=== PATIENT | male | born 1950 | race Caucasian/White ===

== ENCOUNTER 2023-02-06 11:29 | Outpatient (OUT) | payer MEDICARE, MEDICAID, SELFPAY ==
[2023-02-06 11:56] LABS: Basophils Percent Auto 0.5 % (0.2-2.0); Eosinophils Absolute Auto 0.2 10^3/uL (0.0-0.7); Eosinophils Percent Auto 2.8 % (0.9-7.0); Hemoglobin 10.7 g/dL (14.0-18.0); Immature Granulocytes Abs Auto 0.05 10^3/uL (0.00-0.03); Immature Granulocytes Pct Auto 0.6 % (0.0-0.5); Lymphocytes Absolute Auto 0.5 10^3/uL (1.2-3.8); Lymphocytes Percent Auto 5.5 % (20.5-60.0); Mean Corpuscular HGB Conc 31.5 g/dL (29.9-35.2); Mean Corpuscular Hemoglobin 30.7 pg (25.9-34.0); Mean Corpuscular Volume 97.4 fL (80.0-94.0); Mean Platelet Volume 9.9 fL (9.5-13.5); Monocytes Absolute Auto 0.4 10^3/uL (0.3-0.8); Monocytes Percent Auto 4.5 % (1.7-12.0); Neutrophils Absolute Auto 7.1 10^3/uL (1.4-6.5); Neutrophils Percent Auto 86.1 % (43.0-75.0); Platelet Count 140 10^3/uL (150-450); Red Blood Count 3.49 10^6/uL (4.70-6.10); Red Cell Distribution Width 14.6 % (11.0-15.0); White Blood Count 8.2 10^3/uL (4.0-11.0)
[2023-02-06 12:09] LABS: Ammonia <10 umol/L (11-32)
[2023-02-06 12:31] LABS: Anion Gap 9.8; Calcium 9.1 mg/dL (8.5-10.1); Carbon Dioxide 29.6 mmol/L (21.0-32.0); Chloride 106 mmol/L (98-107); Estimated GFR (African America 20 (>=60); Estimated GFR (Non-African Ame 16 (>=60); Glucose 100 mg/dL (74-106); Potassium 4.4 mmol/L (3.5-5.1); Sodium 141 mmol/L (136-145)
== END 2023-02-06 11:30 | disposition home or self-care (01) ==
LOC: LAB 11:29
PROVIDERS: PCP Family Medicine; Visit Provider Family Medicine
DX: E72.20 Disorder of urea cycle metabolism, unspecified (principal); Z79.899 Other long term (current) drug therapy
CPT/HCPCS: 36415; 80048; 82140; 85025

== ENCOUNTER 2023-04-22 22:02 | Emergency (ER) | payer MEDICARE, MEDICAID, SELFPAY ==
[2023-04-22 22:25] VITALS: BP 106/52; PULSE 87; RESP 18; TEMP 36.7; O2SAT 95; BMI 30.3
[2023-04-22 23:10] VITALS: BP 131/58; PULSE 77; RESP 18; TEMP 36.5; O2SAT 94
--- NOTE | 2023-04-22 23:15 | ECG_ITS ---
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
--- NOTE | 2023-04-22 23:16 | XR_ITS ---
The [address] [address] Patient Name: CHARLOTTE DONAHUE MRN: [id number] date: 1950 Sex: M Assigned Patient Location: ER Current Patient Location: ER Accession/Order Number: [id number] Exam Date: 04/22/2023 23:25 Report Date: 04/23/2023 00:10 At the request of: CRUZ MARKER Procedure: XR chest 2V EXAMINATION:XR chest 2V INDICATION:cough COMPARISON:05/07/2019 TECHNIQUE:Frontal/lateral views of the chest are submitted. FINDINGS: The cardiomediastinal silhouette is not enlarged. The pulmonary vascularity is within normal limits. There is free intraperitoneal air under the diaphragm. No definitive acute infiltrates are identified in the chest. There is no costophrenic angle blunting. XR/XR chest 2V IMPRESSION: No acute infiltrates. There is free intraperitoneal air. Correlate clinically for any recent surgical procedures. If the patient has not had any recent surgical intervention, CT scan the abdomen and pelvis would be necessary to determine the etiology for the free air. Electronically authenticated by: GILBERTO LOPEZ Date: 04/23/2023 00:10
--- NOTE | 2023-04-22 23:17 | ED.GENADUL1 ---
HPI - General Adult General Chief complaint: Upper Respiratory Infection Stated complaint: URTI Time Seen by Provider: 04/22/23 22:52 Source: patient Mode of arrival: walk-in History of Present Illness HPI narrative: This 72-year-old male who does peritoneal dialysis at night and is a smoker presents for evaluation of 2 weeks of a cough with clear productive sputum. He denies any chest pain or particular shortness of breath. He has not had a fever. He has chronic lower extremity swelling which is unchanged. He is not on any blood thinners. He denies any abdominal pain. He is here with a family member, she states that she had a stroke several months ago and sometimes he is hard to understand. She is concerned because he is having some degree of exertional dyspnea with his cough and she is concerned that he may be developing heart failure or pneumonia. Related Data Allergies Allergy/AdvReac Type Severity Reaction Status Date / Time Penicillins Allergy Severe Verified 04/22/23 22:25 Review of Systems ROS Status of ROS 10 or more systems reviewed and unremarkable except as noted in history and below Exam Narrative Exam Narrative: Nurses note and vital signs reviewed and patient is mildly hypoxic with pulse ox of 94% on RA General: The patient appears well and in no apparent distress. Patient is resting comfortably on cart. Speaks in complete sentences, no cough or respiratory difficulty noted Skin: Warm, dry, no pallor noted. There is no rash noted. Head: Normocephalic, atraumatic Eye: Normal conjunctiva, no drainage, EOMI. PERRL Ears, Nose, Mouth, and Throat: oral mucosa is moist. Cardiovascular: Regular Rate and RhythmS1 and S2, pulses are brisk and equal bilaterally Respiratory: Patient is in no distress, no accessory muscle use, lungs are clear to auscultation, no wheezing, rales or rhonchi, No accessory muscle use, patient is speaking in complete sentences Back: non-tender, no CVA tenderness bilaterally to percussion. GI: Normal bowel sounds, no tenderness to palpation, soft with peritoneal dialysis catheter in center of abdomen Musculoskeletal: 2+ LE edema bilaterally, no calf tenderness Neurological: A&O x4, normal speech Psychiatric: Cooperative Constitutional Vital Signs, click to edit/add: Last Vital Signs Temp 97.7 F 04/22/23 23:10 Pulse 77 04/22/23 23:10 Resp 18 04/22/23 23:10 BP 131/58 04/22/23 23:10 Pulse Ox 94 L 04/22/23 23:10 O2 Del Method Room Air 04/22/23 23:10 Course Vital Signs Vital signs: Vital Signs Temperature 98.1 F 04/22/23 22:25 Pulse Rate 87 04/22/23 22:25 Respiratory Rate 18 04/22/23 22:25 Blood Pressure 106/52 04/22/23 22:25 Pulse Oximetry 95 04/22/23 22:25 Oxygen Delivery Method Room Air 04/22/23 22:25 Temperature 97.7 F 04/22/23 23:10 Pulse Rate 77 04/22/23 23:10 Respiratory Rate 18 04/22/23 23:10 Blood Pressure 131/58 04/22/23 23:10 Pulse Oximetry 94 L 04/22/23 23:10 Oxygen Delivery Method Room Air 04/22/23 23:10 Medical Decision Making MDM Narrative Medical decision making narrative: [id number] male who is on peritoneal dialysis and is a smoker presents for evaluation of 2 weeks of a cough with clear productive sputum. He is not having any chest pain or particular shortness of breath. He does have chronic lower extremity swelling. He has not had a fever. There is been no color change to his sputum. He has no oxygen requirements although he is mildly low at 94 percent on room air upon arrival. His lungs are clear. EKG was normal sinus rhythm with diffuse flattening of his T waves. Routine labs are reviewed. He has a normal white count and hemoglobin. Creatinine is elevated at 4.11 consistent with his chronic renal failure. Chest x-ray was reviewed by radiology and is negative for acute findings. The air under hiss diaphragm is likely related to the peritoneal dialysis that he receives on a nightly basis. He remains hemodynamically stable in emergency department. I offered him an Albuterol MDI treatment which he is in agreement with and he will be discharged home with the albuterol. I signed to his daughter that he does not have pneumonia, there is no sign of congestive heart failure, a cough with clear phlegm is not indicative of any infection. He will be discharged home with the MDI. Medical Records Medical records narrative: The [place] [id number] XRay Report Signed Patient: CHARLOTTE DONAHUE MR#: [id number] : 1950 Acct:[id number] Age/Sex: 72 / M ADM Date: 04/22/23 Loc: ER Attending Dr: Ordering Physician: Kala Reddy Date of Service: 04/22/23 Procedure(s): XR chest 2V Accession Number(s): [id number] cc: Kala Reddy; Jono Robert M.D.~ The [place] [address] Patient Name: CHARLOTTE DONAHUE MRN: [id number] date: 1950 Sex: M Assigned Patient Location: ER Current Patient Location: ER Accession/Order Number: [id number] Exam Date: 04/22/2023 23:25 Report Date: 04/23/2023 00:10 At the request of: KALA REDDY Procedure: XR chest 2V EXAMINATION:XR chest 2V INDICATION:cough COMPARISON:05/07/2019 TECHNIQUE:Frontal/lateral views of the chest are submitted. FINDINGS: The cardiomediastinal silhouette is not enlarged. The pulmonary vascularity is within normal limits. There is free intraperitoneal air under the diaphragm. No definitive acute infiltrates are identified in the chest. There is no costophrenic angle blunting. XR/XR chest 2V IMPRESSION: No acute infiltrates. There is free intraperitoneal air. Correlate clinically for any recent surgical procedures. If the patient has not had any recent surgical intervention, CT scan the abdomen and pelvis would be necessary to determine the etiology for the free air. Electronically authenticated by: GILBERTO LOPEZ Date: 04/23/2023 00:10 Lab Data Labs: Lab Results 04/22/23 Range/Units 23:36 WBC 6.1 (4.0-11.0) 10^3/uL RBC 3.25 L (4.70-6.10) 10^6/uL Hgb 9.5 L (14.0-18.0) g/dL Hct 30.9 L (42.0-54.0) % MCV 95.1 H (80.0-94.0) fL MCH 29.2 (25.9-34.0) pg MCHC 30.7 (29.9-35.2) g/dL RDW 14.5 (11.0-15.0) % Plt Count 145 L (150-450) 10^3/uL MPV 11.0 (9.5-13.5) fL Neut % (Auto) 79.9 H (43.0-75.0) % Lymph % (Auto) 6.3 L (20.5-60.0) % [place] % (Auto) 8.7 (1.7-12.0) % Eos % (Auto) 4.1 (0.9-7.0) % Baso % (Auto) 0.5 (0.2-2.0) % Neut # (Auto) 4.9 (1.4-6.5) 10^3/uL Lymph # (Auto) 0.4 L (1.2-3.8) 10^3/uL [place] # (Auto) 0.5 (0.3-0.8) 10^3/uL Eos # (Auto) 0.3 (0.0-0.7) 10^3/uL Baso # (Auto) 0.0 (0.0-0.1) 10^3/uL Abs Immat Gran (auto) 0.03 (0.00-0.03) 10^3/uL Imm/Tot Granulo (auto) 0.5 (0.0-0.5) % Sodium 141 (136-145) mmol/L Potassium 3.7 (3.5-5.1) mmol/L Chloride 105 (98-107) mmol/L Carbon Dioxide 29.4 (21.0-32.0) mmol/L Anion Gap 10.3 BUN 38.0 H (7.0-18.0) mg/dL Creatinine 4.11 H (0.70-1.30) mg/dL Est GFR ( Amer) 18 L (>=60) Est GFR (Non-Af Amer) 14 L (>=60) BUN/Creatinine Ratio 9.2 Glucose 148 H (74-106) mg/dL Calcium 8.5 (8.5-10.1) mg/dL Total Bilirubin 0.3 (0.2-1.0) mg/dL AST 19 (15-37) U/L ALT 20 (16-63) U/L Alkaline Phosphatase 81 (46-116) U/L Total Protein 5.8 L (6.4-8.2) g/dL Albumin 2.0 L (3.4-5.0) g/dL Globulin 3.8 g/dL Albumin/Globulin Ratio 0.5 ECG Data Attestation: I personally reviewed and interpreted this ECG as follows: (Sinus rhythm with sinus arrhythmia at 70 beats for minute, normal axis, diffuse flattening of T waves, no acute ST segment elevation or T-wave inversion) Discharge Plan Discharge Chief Complaint: Upper Respiratory Infection Clinical Impression: Viral infection, Cough in adult Patient Disposition: Home, Self-Care Time of Disposition Decision: 00:35 Condition: Good Instructions: Viral Syndrome (ED) Stand Alone Forms: Portal Instructions Referrals: Jono Robert MD [Primary Care Provider] - 1 week
[2023-04-22 23:58] LABS: Basophils Percent Auto 0.5 % (0.2-2.0); Eosinophils Absolute Auto 0.3 10^3/uL (0.0-0.7); Eosinophils Percent Auto 4.1 % (0.9-7.0); Hematocrit 30.9 % (42.0-54.0); Hemoglobin 9.5 g/dL (14.0-18.0); Immature Granulocytes Abs Auto 0.03 10^3/uL (0.00-0.03); Immature Granulocytes Pct Auto 0.5 % (0.0-0.5); Lymphocytes Absolute Auto 0.4 10^3/uL (1.2-3.8); Lymphocytes Percent Auto 6.3 % (20.5-60.0); Mean Corpuscular HGB Conc 30.7 g/dL (29.9-35.2); Mean Corpuscular Hemoglobin 29.2 pg (25.9-34.0); Mean Corpuscular Volume 95.1 fL (80.0-94.0); Monocytes Absolute Auto 0.5 10^3/uL (0.3-0.8); Monocytes Percent Auto 8.7 % (1.7-12.0); Neutrophils Absolute Auto 4.9 10^3/uL (1.4-6.5); Neutrophils Percent Auto 79.9 % (43.0-75.0); Platelet Count 145 10^3/uL (150-450); Red Blood Count 3.25 10^6/uL (4.70-6.10); Red Cell Distribution Width 14.5 % (11.0-15.0); White Blood Count 6.1 10^3/uL (4.0-11.0)
[2023-04-23 00:21] LABS: Alanine Aminotransferase 20 U/L (16-63); Albumin Globulin Ratio 0.5; Alkaline Phosphatase 81 U/L (46-116); Anion Gap 10.3; Aspartate Amino Transferase 19 U/L (15-37); BUN Creatinine Ratio 9.2; Bilirubin Total 0.3 mg/dL (0.2-1.0); Calcium 8.5 mg/dL (8.5-10.1); Carbon Dioxide 29.4 mmol/L (21.0-32.0); Chloride 105 mmol/L (98-107); Estimated GFR (African America 18 (>=60); Estimated GFR (Non-African Ame 14 (>=60); Globulin 3.8 g/dL; Glucose 148 mg/dL (74-106); Potassium 3.7 mmol/L (3.5-5.1); Sodium 141 mmol/L (136-145); Total Protein 5.8 g/dL (6.4-8.2)
[2023-04-23 00:49] VITALS: PULSE 69; RESP 18
[2023-04-23] MEDS: ALBUTEROL SULFATE 200 PUFF/6.7 GM INHALER IH (00:49)
[2023-04-23 01:12] VITALS: BP 126/57; PULSE 70; RESP 16; TEMP 36.6; O2SAT 94
[2023-04-23 01:16] VITALS: BP 126/57; PULSE 70; RESP 16; TEMP 36.6; O2SAT 94
== END 2023-04-23 01:22 | disposition home or self-care (01) ==
PROVIDERS: Emergency Provider Emergency Medicine; PCP Family Medicine
DX: B34.9 Viral infection, unspecified (principal); R05.9 Cough, unspecified; F17.210 Nicotine dependence, cigarettes, uncomplicated; N18.9 Chronic kidney disease, unspecified; Z99.2 Dependence on renal dialysis; Z86.73 Personal history of transient ischemic attack (TIA), and cerebral infarction without residual deficits
CPT/HCPCS: 36415; 71046; 80053; 85025; 93005; 94640; 99285

== ENCOUNTER 2023-08-10 14:24 | Observation (INO) | payer MEDICARE, MEDICAID, SELFPAY ==
[2023-08-10] VITALS (25 sets, daily range): BP systolic 136–182; BP diastolic 56–77; PULSE 65–112; RESP 10–20; TEMP 36.9–37; O2SAT 94–98; BMI 26.6
--- NOTE | 2023-08-10 14:51 | CT_ITS ---
The [address] [address] Patient Name: CHARLOTTE DONAHUE MRN: [id number] date: 1950 Sex: M Assigned Patient Location: ER Current Patient Location: ER Accession/Order Number: [id number] Exam Date: 08/10/2023 14:55 Report Date: 08/10/2023 15:15 At the request of: ROGER CARTER Procedure: CT stroke head/brain wo con NONCONTRAST HEAD CT COMPARISON: Head CT 09/13/2022. CLINICAL HISTORY: Slurred speech and right arm weakness. TECHNIQUE: Routine noncontrast images of the brain obtained. CT examination of the head without IV contrast. Dose reduction techniques were achieved by using: automated exposure control and/or adjustment of mA and /or kV according to patient size and/or use of iterative reconstruction technique. FINDINGS: Paranasal sinuses and mastoid air cells are clear. Intraorbital contents are unremarkable. No acute bony abnormality. Intracranially, there is no evidence of hemorrhage, mass effect, or midline shift. There is a new area of left frontotemporal encephalomalacia with serpiginous hyperdensity most compatible with remote MCA distribution infarct and associated laminar necrosis. Dense carotid calcifications are present.. CT/CT stroke head/brain wo con IMPRESSION: No acute intracranial hemorrhage. Remote left MCA infarct is new from last years exam. If there is clinical concern for new acute MCA ischemia follow-up MRI or perfusion CTA is recommended. Electronically authenticated by: MAMI FERRARO Date: 08/10/2023 15:15
--- NOTE | 2023-08-10 14:55 | ECG_ITS ---
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
--- NOTE | 2023-08-10 15:03 | ED_ITS ---
HPI - Neuro Symptoms/Deficit General Chief Complaint: Neuro Symptoms/Deficit Stated Complaint: CVA SYMPTOMS Time Seen by Provider: 08/10/23 14:39 Source: patient and family Mode of arrival: walk-in Limitations: no limitations History of Present Illness HPI Narrative: this patient's here with new onset of worsening speech and some clumsiness of his right side hand. He lives with a daughter, who is the primary historian when I spoke with her. She indicates that he's had a left-sided stroke with some mild residual deficit with his speech and memory but he's able take care of himself pretty well. The patient tells her staff that he got up at 9:30 and noticed that his speech and his hand was not the same as usual. She noticed when she got up and talk to him at 10:30 that there is something wrong. He didn't arrive here to the emergency room until well after 2:30 PM. He is not having a headache. His vital signs are noted and are stable he is afebrile. Upon completion of the history by the nursing staff he was sent immediately to CT scan. Related Data Home Medications Medication Instructions Recorded Confirmed cholecalciferol (vitamin D3) 25 1,000 unit PO DAILY 08/10/23 08/10/23 mcg (1,000 unit) tablet (Vitamin D3) cilostazol 100 mg tablet 100 mg PO BID 08/10/23 08/10/23 cyanocobalamin (vitamin B-12) 2,000 mcg PO DAILY 08/10/23 08/10/23 2,000 mcg tablet,extended release (Vitamin B-12 ER) diclofenac sodium 1 % topical gel 2.25 inch topical DAILY PRN pain 08/10/23 08/10/23 dulaglutide 0.75 mg/0.5 mL 0.75 mg subcut QWEEK 08/10/23 08/10/23 subcutaneous [facility] gabapentin 100 mg capsule 300 mg PO BID 08/10/23 08/10/23 gabapentin 600 mg tablet 600 mg PO BEDTIME 08/10/23 08/10/23 gentamicin 0.1 % topical cream 1 applic topical BEDTIME 08/10/23 08/10/23 hyoscyamine sulfate 0.125 mg 0.125 mg PO Q4H PRN dyspepsia 01/08/24 01/08/24 disintegrating tablet insulin aspart U-100 100 unit/mL 1 sliding scale dose subcut ACHS 08/10/23 08/10/23 (3 mL) subcutaneous pen (Novolog FlexPen U-100 Insulin aspart) insulin glargine 100 unit/mL (3 10 unit subcut BEDTIME 08/10/23 08/10/23 mL) subcutaneous pen (Lantus Solostar U-100 Insulin) lanthanum 500 mg chewable tablet 500 mg PO TID 08/10/23 08/10/23 (Fosrenol) midodrine 10 mg tablet 10 mg PO TID 08/10/23 08/10/23 multivitamin 1 tab PO DAILY 08/10/23 08/10/23 nutritional supplements (Re-Gen 1 ea PO .THU, THU, Thu08/10/23 08/10/23 oral liquid) oxycodone-acetaminophen 7.5 mg-325 1 tab PO Q12H 08/10/23 08/10/23 mg tablet ropinirole 3 mg tablet 3 mg PO TID 08/10/23 08/10/23 sertraline 100 mg tablet 150 mg PO Q24H 08/10/23 08/10/23 tamsulosin 0.4 mg capsule 0.4 mg PO BID 08/10/23 08/10/23 trazodone 50 mg tablet 50 mg PO BEDTIME 08/10/23 08/10/23 Allergies Allergy/AdvReac Type Severity Reaction Status Date / Time Penicillins Allergy Severe Verified 04/22/23 22:25 [facility] Social History Smoking status: Heavy tobacco smoker Exam Narrative Exam Narrative: patient had been triaged to CT before I was able to examine him. I saw him immediately after he returned. His daughter is here complementing the history. He's awake alert normal cognition and mental status. He is not repeating himself is not confused he's not ictal. Neurological examination was done in detail. Abnormal findings included abnormal right ncbyfl-yi-icca and nose. Also he had very very very minimal slurring of speech but fluidity and spontaneity of speech was normal. Otherwise proximal and distal leg musculature is normal. Strength the upper limbs is normal but the coordination is abnormal as a noted. He has no visual field loss. Cranial nerves II-12 are normal. He does not have a headache. Heart rate and rhythm are normal. Lower limbs have no swelling edema gravidas phlebitis or deep vein thrombosis. Skin is warm and dry with no diaphoresis or clamminess. Chest in no respiratory distress or wheezing or coughing. Constitutional Vital Signs, click to edit/add: Last Vital Signs Temp 98.6 F 08/10/23 14:35 Pulse 78 08/10/23 15:10 Resp 18 08/10/23 15:10 BP 141/56 08/10/23 14:50 Pulse Ox 97 08/10/23 15:05 O2 Del Method Room Air 08/10/23 14:35 Course Vital Signs Vital signs: Vital Signs Temperature 98.6 F 08/10/23 14:35 Pulse Rate 75 08/10/23 14:35 Respiratory Rate 20 08/10/23 14:35 Blood Pressure 139/77 08/10/23 14:35 Pulse Oximetry 97 08/10/23 14:35 Oxygen Delivery Method Room Air 08/10/23 14:35 Temperature 98.6 F 08/10/23 14:35 Pulse Rate 78 08/10/23 15:10 Respiratory Rate 18 08/10/23 15:10 Blood Pressure 141/56 08/10/23 14:50 Pulse Oximetry 97 08/10/23 15:05 Oxygen Delivery Method Room Air 08/10/23 14:35 MDM - Neuro Symptoms/Deficit MDM Narrative Medical decision making narrative: this patient last known was 9:00 last evening. Onset of symptoms at 9:30 AM resented to the emergency room approximately 2:30. Did speak with the on-call telemetry neurology stroke team. They did not recommend any further intervention but since he cannot have CTA they thought he should have an MRI and EEG. They would do a consultation. I will discuss this with Dr. Moncada the hospitalist. Lab Data Labs: Lab Results 08/10/23 08/10/23 Range/Units 14:50 15:12 WBC 7.4 (4.0-11.0) 10^3/uL RBC 3.68 L (4.70-6.10) 10^6/uL Hgb 11.1 L (14.0-18.0) g/dL Hct 35.1 L (42.0-54.0) % MCV 95.4 H (80.0-94.0) fL MCH 30.2 (25.9-34.0) pg MCHC 31.6 (29.9-35.2) g/dL RDW 14.6 (11.0-15.0) % Plt Count 140 L (150-450) 10^3/uL MPV 11.0 (9.5-13.5) fL Neut % (Auto) 84.8 H (43.0-75.0) % Lymph % (Auto) 4.7 L (20.5-60.0) % [place] % (Auto) 7.2 (1.7-12.0) % Eos % (Auto) 2.6 (0.9-7.0) % Baso % (Auto) 0.3 (0.2-2.0) % Neut # (Auto) 6.3 (1.4-6.5) 10^3/uL Lymph # (Auto) 0.4 L (1.2-3.8) 10^3/uL [place] # (Auto) 0.5 (0.3-0.8) 10^3/uL Eos # (Auto) 0.2 (0.0-0.7) 10^3/uL Baso # (Auto) 0.0 (0.0-0.1) 10^3/uL Abs Immat Gran (auto) 0.03 (0.00-0.03) 10^3/uL Imm/Tot Granulo (auto) 0.4 (0.0-0.5) % PT 10.0 (9.0-11.6) sec INR 0.94 APTT 29.1 (22.3-36.2) sec Sodium 137 (136-145) mmol/L Potassium 3.9 (3.5-5.1) mmol/L Chloride 102 (98-107) mmol/L Carbon Dioxide 29.1 (21.0-32.0) mmol/L Anion Gap 9.8 BUN 39.0 H (7.0-18.0) mg/dL Creatinine 2.92 H (0.70-1.30) mg/dL Est GFR ( Amer) 26 L (>=60) Est GFR (Non-Af Amer) 21 L (>=60) BUN/Creatinine Ratio 13.4 Glucose 163 H (74-106) mg/dL Calcium 8.7 (8.5-10.1) mg/dL Total Bilirubin 0.3 (0.2-1.0) mg/dL AST 16 (15-37) U/L ALT 22 (16-63) U/L Alkaline Phosphatase 105 (46-116) U/L Troponin I High Sens 13.7 (4.0-76.1) pg/mL Total Protein 5.8 L (6.4-8.2) g/dL Albumin 2.4 L (3.4-5.0) g/dL Globulin 3.4 g/dL Albumin/Globulin Ratio 0.7 POC Glucose 206 H (74-106) mg/dL Discharge Plan Discharge Chief Complaint: Neuro Symptoms/Deficit Clinical Impression: Acute CVA (cerebrovascular accident) Patient Disposition: Admitted as Observation Time of Disposition Decision: 16:28 Prescriptions / Home Meds: No Action cilostazol 100 mg tablet 100 mg PO BID gabapentin 100 mg capsule 300 mg PO BID gabapentin 600 mg tablet 600 mg PO BEDTIME gentamicin 0.1 % cream 1 applic TOPICAL BEDTIME Rx Instructions: [facility] ropinirole 3 mg tablet 3 mg PO TID sertraline 100 mg tablet 150 mg PO Q24H tamsulosin 0.4 mg capsule 0.4 mg PO BID insulin glargine [Lantus Solostar U-100 Insulin] 100 unit/mL (3 mL) insulin pen 10 unit SUBCUT BEDTIME insulin aspart U-100 [Novolog FlexPen U-100 Insulin] 100 unit/mL (3 mL) insulin pen 1 sliding scale dose SUBCUT ACHS Trulicity 0.75 mg/0.5 mL pen injector 0.75 mg subcut QWEEK midodrine 10 mg tablet 10 mg PO TID lanthanum [Fosrenol] 500 mg tablet,chewable 500 mg PO TID Rx Instructions: administer with food; chew thoroughly before swallowing Re-Gen Liquid 1 ea PO .MON, WED, FRI multivitamin Tablet 1 tab PO DAILY cholecalciferol (vitamin D3) [Vitamin D3] 25 mcg (1,000 unit) tablet 1,000 unit PO DAILY trazodone 50 mg tablet 50 mg PO BEDTIME oxycodone-acetaminophen 7.5-325 mg tablet 1 tab PO Q12H cyanocobalamin (vitamin B-12) [Vitamin B-12] 2,000 mcg tablet extended release 2,000 mcg PO DAILY diclofenac sodium 1 % gel 2.25 inch TOPICAL DAILY PRN (Reason: pain) Patient Comments: KNEES hyoscyamine sulfate 0.125 mg tablet,disintegrating 0.125 mg PO Q4H PRN (Reason: dyspepsia) Referrals: Jono Robert MD [Primary Care Provider] - 1 week
[2023-08-10 15:07] LABS: Basophils Percent Auto 0.3 % (0.2-2.0); Eosinophils Absolute Auto 0.2 10^3/uL (0.0-0.7); Eosinophils Percent Auto 2.6 % (0.9-7.0); Hematocrit 35.1 % (42.0-54.0); Hemoglobin 11.1 g/dL (14.0-18.0); Immature Granulocytes Abs Auto 0.03 10^3/uL (0.00-0.03); Immature Granulocytes Pct Auto 0.4 % (0.0-0.5); Lymphocytes Absolute Auto 0.4 10^3/uL (1.2-3.8); Lymphocytes Percent Auto 4.7 % (20.5-60.0); Mean Corpuscular HGB Conc 31.6 g/dL (29.9-35.2); Mean Corpuscular Hemoglobin 30.2 pg (25.9-34.0); Mean Corpuscular Volume 95.4 fL (80.0-94.0); Monocytes Absolute Auto 0.5 10^3/uL (0.3-0.8); Monocytes Percent Auto 7.2 % (1.7-12.0); Neutrophils Absolute Auto 6.3 10^3/uL (1.4-6.5); Neutrophils Percent Auto 84.8 % (43.0-75.0); Platelet Count 140 10^3/uL (150-450); Red Blood Count 3.68 10^6/uL (4.70-6.10); Red Cell Distribution Width 14.6 % (11.0-15.0); White Blood Count 7.4 10^3/uL (4.0-11.0)
[2023-08-10 15:15] LABS: Glucometer 206 mg/dL (74-106)
[2023-08-10 15:21] LABS: INR 0.94; Partial Thromboplastin Time 29.1 sec (22.3-36.2)
[2023-08-10 15:32] LABS: Alanine Aminotransferase 22 U/L (16-63); Albumin Globulin Ratio 0.7; Albumin Level 2.4 g/dL (3.4-5.0); Alkaline Phosphatase 105 U/L (46-116); Anion Gap 9.8; Aspartate Amino Transferase 16 U/L (15-37); BUN Creatinine Ratio 13.4; Bilirubin Total 0.3 mg/dL (0.2-1.0); Calcium 8.7 mg/dL (8.5-10.1); Carbon Dioxide 29.1 mmol/L (21.0-32.0); Chloride 102 mmol/L (98-107); Estimated GFR (African America 26 (>=60); Estimated GFR (Non-African Ame 21 (>=60); Globulin 3.4 g/dL; Glucose 163 mg/dL (74-106); Potassium 3.9 mmol/L (3.5-5.1); Sodium 137 mmol/L (136-145); Total Protein 5.8 g/dL (6.4-8.2); Troponin I High Sensitivity 13.7 pg/mL (4.0-76.1)
--- NOTE | 2023-08-10 16:08 | XR_ITS ---
The [address] [address] Patient Name: CHARLOTTE DONAHUE MRN: [id number] date: 1950 Sex: M Assigned Patient Location: ER Current Patient Location: ER Accession/Order Number: [id number] Exam Date: 08/10/2023 16:40 Report Date: 08/10/2023 16:53 At the request of: ROGER CARTER Procedure: XR chest 1V EXAM: XR chest 1V HISTORY: . weakness . COMPARISON: 04/22/2023 TECHNIQUE: Single view of the chest. FINDINGS: Heart and vascularity are unremarkable. Lungs are free of focal infiltrates. EKG leads overlie the chest. XR/XR chest 1V Impression: No acute heart or lung disease identified. Electronically authenticated by: BROOKS VALENTINE Date: 08/10/2023 16:53
--- NOTE | 2023-08-10 18:30 | MR_ITS ---
The [address] [address] Patient Name: CHARLOTTE DONAHUE MRN: [id number] date: 1950 Sex: M Assigned Patient Location: ICU Current Patient Location: ICU Accession/Order Number: [id number] Exam Date: 08/10/2023 06:40 Report Date: 08/11/2023 07:49 At the request of: ROE CHAN Procedure: MR head/brain wo con EXAMINATION: MR head/brain wo con, 08/10/2023 6:40 AM EST HISTORY: AMS COMPARISON: CT 08/10/2023. TECHNIQUE: MRI of the brain was performed without IV contrast. HISTORY: AMS FINDINGS: CEREBRUM: 5.1 x 3.0 cm area of encephalomalacia with signal abnormality in the left frontal lobe with no restricted diffusion consistent with a remote infarct. Moderate scattered white matter signal abnormality. Chronic small vessel ischemic changes are favored. CEREBELLUM: No edema, hemorrhage, mass, acute infarction, or inappropriate atrophy. BRAINSTEM: No edema, hemorrhage, mass, acute infarction, or inappropriate atrophy. CSF SPACES: No subarachnoid hemorrhage or mass. Extraocular dilation of the left lateral ventricle, chronic SKULL: No mass or other significant visible lesion. SINUSES: Limited views demonstrate no significant mucosal thickening or fluid. ORBITS: Limited views are unremarkable. OTHER: Negative. MR/MR head/brain wo con IMPRESSION: Remote left frontal lobe infarct Moderate white matter disease, chronic No acute infarct Electronically authenticated by: BROOKS QUAN Date: 08/11/2023 07:49
[2023-08-10 18:32] LABS: Glucometer 118 mg/dL (74-106)
--- NOTE | 2023-08-10 20:04 | P.HP_ITS ---
H&P: HPI History of Present Illness Chief complaint: CVA SYMPTOMS ACUTE CVA Narrative: Patient with a treatment significant left middle cerebral artery stroke, this was a while ago and is essentially fully recovered from that. Does say for a little bit of disequilibrium. Started having symptoms similar to when he had his left middle cerebral artery infarct. Daughter noticed some difficulty with his speech. He presented to the emergency room. Over the course of that time his symptoms have pretty much improved. Still has some he feels difficulty with his speech and imbalance is a little worse than normal. But overall is definitely improved from this morning per patient. Case is discussed with gene dank, they do not see need to transfer at this time. Patient was admitted to ICU Review of Systems ROS Status of ROS 10 or more systems reviewed and unremark able except as noted in history and below [facility] Social History Smoking status: Heavy tobacco smoker Meds Home Medications and Allergies Home Medications Medication Instructions Recorded Confirmed Type cholecalciferol (vitamin D3) 25 1,000 unit PO DAILY 08/10/23 08/10/23 History mcg (1,000 unit) tablet (Vitamin D3) cilostazol 100 mg tablet 100 mg PO BID 08/10/23 08/10/23 History cyanocobalamin (vitamin B-12) 2,000 mcg PO DAILY 08/10/23 08/10/23 History 2,000 mcg tablet,extended release (Vitamin B-12 ER) diclofenac sodium 1 % topical gel 2.25 inch topical DAILY PRN pain 08/10/23 08/10/23 History dulaglutide 0.75 mg/0.5 mL 0.75 mg subcut QWEEK 08/10/23 08/10/23 History subcutaneous [facility] ([facility]) gabapentin 600 mg tablet 600 mg PO BEDTIME 08/10/23 08/10/23 History gentamicin 0.1 % topical cream 1 applic topical BEDTIME 08/10/23 08/10/23 History hyoscyamine sulfate 0.125 mg 0.125 mg PO Q4H PRN dyspepsia 08/10/23 08/10/23 History disintegrating tablet insulin aspart U-100 100 unit/mL 1 sliding scale dose subcut ACHS 08/10/23 08/10/23 History (3 mL) subcutaneous pen (Novolog FlexPen U-100 Insulin aspart) insulin glargine 100 unit/mL (3 10 unit subcut BEDTIME 08/10/23 08/10/23 History mL) subcutaneous pen (Lantus Solostar U-100 Insulin) lanthanum 500 mg chewable tablet 500 mg PO TID 08/10/23 08/10/23 History (Fosrenol) midodrine 10 mg tablet 10 mg PO TID 08/10/23 08/10/23 History multivitamin 1 tab PO DAILY 08/10/23 08/10/23 History nutritional supplements (Re-Gen 1 ea PO .MON, THU, Thu08/10/23 08/10/23 History oral liquid) oxycodone-acetaminophen 7.5 mg-325 1 tab PO Q12H PRN pain 08/10/23 08/10/23 History mg tablet ropinirole 3 mg tablet 3 mg PO TID 08/10/23 08/10/23 History sertraline 100 mg tablet 150 mg PO Q24H 08/10/23 08/10/23 History tamsulosin 0.4 mg capsule 0.4 mg PO BID 08/10/23 08/10/23 History trazodone 50 mg tablet 50 mg PO BEDTIME 08/10/23 08/10/23 History Allergies Allergy/AdvReac Type Severity Reaction Status Date / Time Penicillins Allergy Severe Verified 04/22/23 22:25 Exam Constitutional Vital Signs, click to edit/add: Last Vital Signs Temp 98.5 F 08/10/23 18:33 Pulse 86 08/10/23 18:33 Resp 20 08/10/23 18:33 BP 179/73 H 08/10/23 18:33 Pulse Ox 97 08/10/23 18:33 O2 Del Method Room Air 08/10/23 18:33 Documenting provider has reviewed patient's vital signs: yes Common normals: no apparent distress HENMT Common normals: moist oral mucous membranes Respiratory Common normals: normal respiratory effort Cardio Common normals: regular rhythm GI Common normals: Normal to inspection, nondistended, normoactive bowel sounds present Extremity Common normals: normal to inspection Neuro Other: Does need to hold on to improve his balance. I am not familiar with his speech pattern but it is a little deliberate Results Labs Labs: Short CBC 08/10/23 Range/Units 14:50 WBC 7.4 (4.0-11.0) 10^3/uL Hgb 11.1 L (14.0-18.0) g/dL Hct 35.1 L (42.0-54.0) % Plt Count 140 L (150-450) 10^3/uL BMP 08/10/23 14:50 Sodium 137 Potassium 3.9 Chloride 102 Carbon Dioxide 29.1 BUN 39.0 H Creatinine 2.92 H Glucose 163 H Calcium 8.7 Liver Function 08/10/23 Range/Units 14:50 Total Bilirubin 0.3 (0.2-1.0) mg/dL AST 16 (15-37) U/L ALT 22 (16-63) U/L Alkaline Phosphatase 105 (46-116) U/L Albumin 2.4 L (3.4-5.0) g/dL Assessment and Plan Assessment and Plan (1) Acute CVA (cerebrovascular accident): Plan Sinus tachycardia, uncontrolled hypertension with 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 Check MRI scan in AM. Start aspirin today. Case to be followed by telestroke team. So far patient is overall improving Uncontrolled hypertension-will use as needed hydralazine. He does have some issues with hypotension. Will hold off on his midodrine. Moderate protein calorie malnutrition-diet management Iron deficiency anemia-monitor daily Thrombocytopenia-monitor daily Insulin-dependent diabetes mellitus-insulin sliding scale End-stage kidney disease-patient does home peritoneal dialysis-will continue with her treatment here.
[2023-08-10] MEDS: ASPIRIN 81 MG TABLET.DR 324 MG PO (20:23)
[2023-08-10] MEDS: CILOSTAZOL 100 MG TABLET PO (20:23)
[2023-08-10] MEDS: TAMSULOSIN HCL 0.4 MG CAPSULE PO (20:23)
[2023-08-10] MEDS: TRAZODONE HCL 50 MG TABLET PO (21:47)
[2023-08-10] MEDS: GABAPENTIN 300 MG CAPSULE 600 MG PO (21:47)
[2023-08-10] MEDS: ROPINIROLE HCL 1 MG TABLET 3 MG PO (21:47)
[2023-08-10 21:48] LABS: Glucometer 139 mg/dL (74-106)
[2023-08-11] VITALS (66 sets, daily range): BP systolic 141–185; BP diastolic 58–81; PULSE 62–92; RESP 13–28; TEMP 36.4–36.9; O2SAT 94–97; BMI 26.6
[2023-08-11] MEDS: INSULIN ASPART 300 UNIT/3 ML PEN SUBQ ×4 (01:22→21:17)
[2023-08-11 01:27] LABS: Glucometer 193 mg/dL (74-106)
[2023-08-11 04:09] LABS: Glucometer 109 mg/dL (74-106)
[2023-08-11 04:29] LABS: Basophils Percent Auto 0.6 % (0.2-2.0); Eosinophils Absolute Auto 0.2 10^3/uL (0.0-0.7); Hematocrit 32.8 % (42.0-54.0); Hemoglobin 10.3 g/dL (14.0-18.0); Immature Granulocytes Abs Auto 0.03 10^3/uL (0.00-0.03); Immature Granulocytes Pct Auto 0.6 % (0.0-0.5); Lymphocytes Absolute Auto 0.5 10^3/uL (1.2-3.8); Lymphocytes Percent Auto 10.4 % (20.5-60.0); Mean Corpuscular HGB Conc 31.4 g/dL (29.9-35.2); Mean Corpuscular Hemoglobin 30.2 pg (25.9-34.0); Mean Corpuscular Volume 96.2 fL (80.0-94.0); Mean Platelet Volume 11.2 fL (9.5-13.5); Monocytes Absolute Auto 0.4 10^3/uL (0.3-0.8); Monocytes Percent Auto 8.7 % (1.7-12.0); Neutrophils Absolute Auto 3.8 10^3/uL (1.4-6.5); Neutrophils Percent Auto 76.7 % (43.0-75.0); Platelet Count 120 10^3/uL (150-450); Red Blood Count 3.41 10^6/uL (4.70-6.10); Red Cell Distribution Width 14.7 % (11.0-15.0); White Blood Count 4.9 10^3/uL (4.0-11.0)
[2023-08-11 04:42] LABS: BUN Creatinine Ratio 13.4; Calcium 8.7 mg/dL (8.5-10.1); Carbon Dioxide 27.4 mmol/L (21.0-32.0); Chloride 107 mmol/L (98-107); Estimated GFR (African America 27 (>=60); Estimated GFR (Non-African Ame 22 (>=60); Glucose 100 mg/dL (74-106); Potassium 3.4 mmol/L (3.5-5.1); Sodium 140 mmol/L (136-145)
[2023-08-11] MEDS: ROPINIROLE HCL 1 MG TABLET 3 MG PO ×3 (06:07→21:09)
[2023-08-11 07:46] LABS: Glucometer 132 mg/dL (74-106)
[2023-08-11] MEDS: ENSURE HP 237 ML LIQUID PO ×2 (08:03→21:09)
[2023-08-11] MEDS: ASPIRIN 81 MG TABLET.DR 324 MG PO (08:04)
[2023-08-11] MEDS: TAMSULOSIN HCL 0.4 MG CAPSULE PO ×2 (08:04→21:09)
[2023-08-11] MEDS: MULTIVITAMIN TABLET 1 TAB PO (08:04)
[2023-08-11] MEDS: CHOLECALCIFEROL (VITAMIN D3) 25 MCG/1,000 UNITS TABLET PO (08:04)
[2023-08-11] MEDS: SERTRALINE HCL 100 MG TABLET PO (08:04)
[2023-08-11] MEDS: CILOSTAZOL 100 MG TABLET PO ×2 (08:04→21:09)
--- NOTE | 2023-08-11 08:48 | CM.NOTE ---
Rounds made with Dr. Lazo, pt just returning from MRI. Dr. Lazo awaiting MRI results for discharge plan of care.
--- NOTE | 2023-08-11 09:42 | P.PN_ITS ---
Exam Constitutional Vital Signs, click to edit/add: Last Vital Signs Temp 97.6 F 08/11/23 07:43 Pulse 65 08/11/23 07:40 Resp 16 08/11/23 07:40 BP 145/65 H 08/11/23 07:24 Pulse Ox 94 L 08/11/23 04:11 O2 Del Method Room Air 08/11/23 07:43 Progress Note: Objective Labs Labs: Short CBC 08/10/23 08/11/23 Range/Units 14:50 03:56 WBC 7.4 4.9 (4.0-11.0) 10^3/uL Hgb 11.1 L 10.3 L (14.0-18.0) g/dL Hct 35.1 L 32.8 L (42.0-54.0) % Plt Count 140 L 120 L (150-450) 10^3/uL BMP 08/10/23 08/11/23 14:50 03:56 Sodium 137 140 Potassium 3.9 3.4 L Chloride 102 107 Carbon Dioxide 29.1 27.4 BUN 39.0 H 38.0 H Creatinine 2.92 H 2.84 H Glucose 163 H 100 Calcium 8.7 8.7 Liver Function 08/10/23 Range/Units 14:50 Total Bilirubin 0.3 (0.2-1.0) mg/dL AST 16 (15-37) U/L ALT 22 (16-63) U/L Alkaline Phosphatase 105 (46-116) U/L Albumin 2.4 L (3.4-5.0) g/dL Progress Note: A&P Assessment and Plan (1) Acute CVA (cerebrovascular accident): Plan Sinus tachycardia, uncontrolled hypertension with 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 Check MRI scan in AM. Start aspirin today. Case to be followed by telestroke team. So far patient is overall improving Uncontrolled hypertension-will use as needed hydralazine. He does have some issues with hypotension. Will hold off on his midodrine. Moderate protein calorie malnutrition-diet management Iron deficiency anemia-monitor daily Thrombocytopenia-monitor daily Insulin-dependent diabetes mellitus-insulin sliding scale End-stage kidney disease-patient does home peritoneal dialysis-will continue with her treatment here.
--- NOTE | 2023-08-11 10:07 | CM.NOTE ---
Medical Outpatient Observation Notice discussed with pt, pt verbalizes understanding and signs paper. Original given to pt and copy placed on pt's chart.
[2023-08-11] MEDS: POTASSIUM CHLORIDE 10 MEQ ER TABLET PO ×2 (11:01→21:09)
[2023-08-11 11:05] LABS: Glucometer 241 mg/dL (74-106)
--- NOTE | 2023-08-11 11:32 | CA_ITS ---
Patient Name: CHARLOTTE DONAHUE MR#: [id number] : 1950 Exam Date: 08/11/2023 Ordering Doctor: DR Goyo Lazo . ECHOCARDIOGRAM REPORT PROCEDURE: CA ECHO DOPPLER COMPLETE INDICATIONS: neurological symptoms, h/o CVA, COPD, [place], smoker, hypertension, diabetes COMPARISON: None. DESCRIPTION: COMPLETE ECHOCARDIOGRAM Real-time transthoracic echocardiography with 2D, M-mode, spectral and color flow Doppler performed. QUALITY: Technical quality was good. 68 , 175#, BSA 1.93 m2 LEFT VENTRICLE: Normal chamber size. Proximal septal hypertrophy (sigmoid septum). LV EF: Global left ventricular systolic function is normal; visually estimated ejection fraction 60 to 65%. No obvious wall motion abnormalities. DIASTOLIC: Normal diastolic function. ATRIAL SEPTUM: Inadequately seen. LEFT ATRIUM: Normal chamber size. RIGHT ATRIUM: Normal chamber size. RIGHT VENTRICLE: Normal chamber size. Normal right ventricular systolic function. TRICUSPID VALVE: Normal mobility and thickness. No stenosis with no regurgitation. Unable to assess right-sided pressures due to lack of measurable tricuspid regurgitation. MITRAL VALVE: Normal mobility and thickness. No evidence of mitral valve stenosis. There is no mitral annular calcification. Trivial mitral regurgitation. AORTIC VALVE: Normal trileaflet appearance. No visible sclerosis. Normal leaflet mobility. No evidence of aortic valve stenosis. No aortic regurgitation. AORTIC ROOT: Normal in size and appearance. PULMONIC VALVE: Normal thickness and mobility. No stenosis. No regurgitation. PERICARDIUM: No evidence of pericardial effusion. IVC: Collapses with inspirations. IVC is dilated (2.2 cm) CONCLUSION: 1. Global left ventricular systolic function is normal; visually estimated ejection fraction is 60 to 65% 2. The right ventricle is normal in size and systolic function 3. Normal diastolic function 4. The left atrium is normal in size 5. No significant valvular abnormalities Adult Echocardiography Procedure Report Left Ventricle LVEDD (3.7 - 5.6 cm): 4.78 cm LVESD (2.2 - 4.0 cm): 3.23 cm LVIVS thickness (0.6 - 1.2 cm): 1.63 cm LVPW thickness (0.5 - 1.0 cm): 0.93 cm e': 0.10 m/s E - e': 10.89 LVOT Max Gradient: 2.12 mm[Hg] LVOT Area (cm2): 0.73 m/s Peak Velocity (LVOT): 0.73 m/s Mean Velocity (LVOT): 0.52 m/s LVOT Diameter 2.85 cm Left Atrium LA Volume Index (2D A2C): 34.01 ml/m2 Left Atrium Systolic Dimension: 3.47 cm Mitral Valve MV E to A Ratio: 0.88 Mitral Valve A-Wave Peak Velocity: 1.27 m/s Mitral Valve E-Wave Peak Velocity: 1.12 m/s Right Ventricle Aorta AO Root Diam: 3.63 cm Aortic Valve AoV Area (Peak Ty): 3.38 cm2, 3.38 cm2 AoV Area (VTI): 3.75 cm2, 3.75 cm2 Peak Velocity(Antegrade Flow): 1.38 m/s Peak Gradient(Antegrade Flow): 7.59 mm[Hg] Mean Velocity(Antegrade Flow): 0.91 m/s Mean Gradient(Antegrade Flow): 3.78 mm[Hg] Velocity Time Integral: 31.20 cm Tricuspid Valve Pulmonic Valve Peak Velocity: 1.01 m/s Peak Gradient: 3.82 mm[Hg], 4.33 mm[Hg] Right Atrium Right Atrium Systolic Pressure: 39.04 ml, 39.04 ml Dictated by: Jerry Delgado M.D. on 08/12/2023 at 09:45 Approved by: Jerry Delgado M.D. on 08/12/2023 at 09:48
--- NOTE | 2023-08-11 11:34 | US_ITS ---
[address] [address] Patient Name: CHARLOTTE DONAHUE MRN: [id number] date: 1950 Sex: M Assigned Patient Location: ICU Current Patient Location: ICU Accession/Order Number: [id number] Exam Date: 08/11/2023 12:10 Report Date: 08/11/2023 14:46 At the request of: ROE CHAN Procedure: US carotid duplex BI EXAMINATION: US carotid duplex BI HISTORY: neurological symptoms COMPARISON: No relevant comparison available. TECHNIQUE: Duplex Doppler ultrasound analysis of carotid and vertebral arteries. . Bilateral carotid arterial duplex examination was performed using B-mode, color flow and spectral analysis. Carotid stenosis is reported according to validated velocity parameters, similar to NASCET criteria. FINDINGS: RIGHT CAROTID ARTERY Marked athersclerotic plaque. 62% stenosis right ICA Subclavian: PSV: 141.1 cm/s cm/s EDV: 0.0 cm/s cm/s CCA: Prox: PSV: 88.2 cm/s cm/s EDV: 9.0 cm/s cm/s Mid: PSV: 86.6 cm/s cm/s EDV: 10.7 cm/s cm/s Distal: PSV: 74.1 cm/s cm/s EDV: 0.0 cm/s cm/s BULB: PSV: 101.6 cm/s cm/s EDV: 9.5 cm/s cm/s ICA: Prox: PSV: 101.6 cm/s cm/s EDV: 19.2 cm/s cm/s Mid: PSV: 117.5 cm/s cm/s EDV: 17.0 cm/s cm/s Distal: PSV: 70.4 cm/s cm/s EDV: 18.7 cm/s cm/s ECA: PSV: 198.9 cm/s cm/s EDV: 10.7 cm/s cm/s VERTEBRAL: PSV: 42.4 cm/s cm/s EDV: 0.0 cm/s cm/s, antegrade ICA/CCA ratio: PSV: 1.4 EDV: 1.6 LEFT CAROTID ARTERY Marked atherosclerotic plaque, 74% left ICA Subclavian: PSV: 125.3 cm/s cm/s EDV: 0.0 cm/s CCA: Prox: PSV: 85.4 cm/s cm/s EDV: 12.8 cm/s Mid: PSV: 117.2 cm/s cm/s EDV: 7.4 cm/s Distal: PSV: 104.3 cm/s cm/s EDV: 9.0 cm/s BULB: PSV: 133.8 cm/s cm/s EDV: 3.7 cm/s ICA: Prox: PSV: 114.8 cm/s cm/s EDV: 8.9 cm/s Mid: PSV: 112.0 cm/s cm/s EDV: 12.1 cm/s Distal: PSV: 71.1 cm/s cm/s EDV: 10.2 cm/s ECA: PSV: 229.2 cm/s cm/s EDV: 12.6 cm/s VERTEBRAL: PSV: 55.5 cm/s cm/s EDV: 15.4 cm/s , antegrade ICA/CCA ratio: PSV: 1.0 EDV: 1.2 US/US carotid duplex BI IMPRESSION: Flow velocities suggests 0-49% flow stenosis in the bilateral internal carotid arteries however 62% stenosis was measured in the right internal carotid artery and 74% flow stenosis measured in the left internal carotid artery Spectral Doppler US Thresholds (Reference: Stef EG, et al. Radiology 2000; 214:247-252) Stenosis (%) PSV (cm/sec) VICA/VCCA 0-49 <150 <2.5 50-69 150-225 2.5-4.0 >70 >225 >4.0 Electronically authenticated by: BROOKS QUAN Date: 08/11/2023 14:46
--- NOTE | 2023-08-11 13:28 | P.DS_ITS ---
DS: Providers Provider Date of admission: 08/10/23 18:09 Primary care physician: Jono Robert MD Consults: 08/10/23 18:30 Consult to Telestroke Routine Reason for consultation: tallked to in er Has provider been notified: No 08/10/23 18:32 Occupational Therapy Eval and Treat Routine Reason for consultation: Only if needed for Rehab Has provider been notified: No Physical Therapy Eval and Treat Routine Reason for consultation: Eval and Treat Has provider been notified: No DS: Diagnosis Discharge Diagnosis (1) Acute CVA (cerebrovascular accident): Plan Sinus tachycardia, uncontrolled hypertension with 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 Uncontrolled hypertension Moderate protein calorie malnutrition Iron deficiency anemia Thrombocytopenia Insulin-dependent diabetes mellitus End-stage kidney disease-patient does home peritoneal dialysis DS: Summary Hospital Course Hospital Course: Patient presented to the emergency room with slurred speech and some dysarthria and increase in his poor balance. He has a history of middle cerebral artery stroke. He was almost fully recovered that other than a little bit of imbalance. This morning he noticed that his imbalance was worse daughter noticed that his speech was worse as well. Presented to the emergency room. At that time he was already starting to improve. Noncontrast CT done in ER showed no bleed. Case was discussed with telemetry stroke team. [place] patient was okay to stay here since he was not a stroke in evolution. Did start him on aspirin. Get an echo and carotid Dopplers today. Assuming those are normal he will be discharged home in improving condition. Medications see list. Follow-up with his PCP within the next week. Neurology within the next week as well. Patient is about 95% back to baseline with his speech. Able to swallow satisfactorily. Time Spent with Patient Time attestation: Total time spent providing and/or coordinating discharge services: Exam Constitutional Vital Signs, click to edit/add: Last Vital Signs Temp 97.6 F 08/11/23 07:43 Pulse 70 08/11/23 11:20 Resp 14 08/11/23 11:20 BP 185/81 H 08/11/23 11:17 Pulse Ox 94 L 08/11/23 04:11 O2 Del Method Room Air 08/11/23 11:27 Documenting provider has reviewed patient's vital signs: yes Common normals: no apparent distress HENMT Common normals: moist oral mucous membranes Respiratory Common normals: normal respiratory effort Cardio Common normals: regular rhythm GI Common normals: Normal to inspection, nondistended, normoactive bowel sounds present Extremity Common normals: normal to inspection Neuro Other: Does need to hold on to improve his balance. I am not familiar with his speech pattern but it is a little deliberate DS: Data Data Completed and Pending Labs on day of discharge: Labs from last 24 hours 08/11/23 08/11/23 08/11/23 11:03 07:44 04:08 WBC RBC Hgb Hct MCV MCH MCHC RDW Plt Count MPV Neut % (Auto) Lymph % (Auto) [place] % (Auto) Eos % (Auto) Baso % (Auto) Neut # (Auto) Lymph # (Auto) [place] # (Auto) Eos # (Auto) Baso # (Auto) Abs Immat Gran (auto) Imm/Tot Granulo (auto) PT INR APTT Sodium Potassium Chloride Carbon Dioxide Anion Gap BUN Creatinine Est GFR ( Amer) Est GFR (Non-Af Amer) BUN/Creatinine Ratio Glucose Calcium Total Bilirubin AST ALT Alkaline Phosphatase Troponin I High Sens Total Protein Albumin Globulin Albumin/Globulin Ratio POC Glucose 241 H 132 H 109 H 08/11/23 08/11/23 08/10/23 03:56 01:18 21:46 WBC 4.9 RBC 3.41 L Hgb 10.3 L Hct 32.8 L MCV 96.2 H MCH 30.2 MCHC 31.4 RDW 14.7 Plt Count 120 L MPV 11.2 Neut % (Auto) 76.7 H Lymph % (Auto) 10.4 L [place] % (Auto) 8.7 Eos % (Auto) 3.0 Baso % (Auto) 0.6 Neut # (Auto) 3.8 Lymph # (Auto) 0.5 L [place] # (Auto) 0.4 Eos # (Auto) 0.2 Baso # (Auto) 0.0 Abs Immat Gran (auto) 0.03 Imm/Tot Granulo (auto) 0.6 H PT INR APTT Sodium 140 Potassium 3.4 L Chloride 107 Carbon Dioxide 27.4 Anion Gap 9.0 BUN 38.0 H Creatinine 2.84 H Est GFR ( Amer) 27 L Est GFR (Non-Af Amer) 22 L BUN/Creatinine Ratio 13.4 Glucose 100 Calcium 8.7 Total Bilirubin AST ALT Alkaline Phosphatase Troponin I High Sens Total Protein Albumin Globulin Albumin/Globulin Ratio POC Glucose 193 H 139 H 08/10/23 08/10/23 08/10/23 18:29 15:12 14:50 WBC 7.4 RBC 3.68 L Hgb 11.1 L Hct 35.1 L MCV 95.4 H MCH 30.2 MCHC 31.6 RDW 14.6 Plt Count 140 L MPV 11.0 Neut % (Auto) 84.8 H Lymph % (Auto) 4.7 L [place] % (Auto) 7.2 Eos % (Auto) 2.6 Baso % (Auto) 0.3 Neut # (Auto) 6.3 Lymph # (Auto) 0.4 L [place] # (Auto) 0.5 Eos # (Auto) 0.2 Baso # (Auto) 0.0 Abs Immat Gran (auto) 0.03 Imm/Tot Granulo (auto) 0.4 PT 10.0 INR 0.94 APTT 29.1 Sodium 137 Potassium 3.9 Chloride 102 Carbon Dioxide 29.1 Anion Gap 9.8 BUN 39.0 H Creatinine 2.92 H Est GFR ( Amer) 26 L Est GFR (Non-Af Amer) 21 L BUN/Creatinine Ratio 13.4 Glucose 163 H Calcium 8.7 Total Bilirubin 0.3 AST 16 ALT 22 Alkaline Phosphatase 105 Troponin I High Sens 13.7 Total Protein 5.8 L Albumin 2.4 L Globulin 3.4 Albumin/Globulin Ratio 0.7 POC Glucose 118 H 206 H Discharge Plan Discharge Disposition: Home, Self-Care Discharge Medications: New aspirin 325 mg tablet,delayed release (DR/EC) 325 mg PO DAILY Qty: 30 11RF Continued cilostazol 100 mg tablet 100 mg PO BID gabapentin 600 mg tablet 600 mg PO .COMPLEX Rx Instructions: 600 mg orally TAKE ONE-HALF TABLET BY MOUTH IN THE MORNING, ONE TABLET BY MOUTH AT NOON AND ONE TABLET BY MOUTH AT BEDTIME; ropinirole 3 mg tablet 3 mg PO TID sertraline 100 mg tablet 150 mg PO Q24H tamsulosin 0.4 mg capsule 0.8 mg PO BID insulin glargine [Lantus Solostar U-100 Insulin] 100 unit/mL (3 mL) insulin pe n 10 unit SUBCUT BEDTIME insulin aspart U-100 [Novolog FlexPen U-100 Insulin] 100 unit/mL (3 mL) insulin pen 1 sliding scale dose SUBCUT ACHS Trulicity 0.75 mg/0.5 mL pen injector 0.75 mg subcut QWEEK midodrine 10 mg tablet 10 mg PO TID lanthanum [Fosrenol] 500 mg tablet,chewable 500 mg PO TID Rx Instructions: administer with food; chew thoroughly before swallowing Re-Gen Liquid 1 ea PO .MON, WED, FRI multivitamin Tablet 1 tab PO DAILY cholecalciferol (vitamin D3) [Vitamin D3] 25 mcg (1,000 unit) tablet 1,000 unit PO DAILY trazodone 50 mg tablet 50 mg PO BEDTIME oxycodone-acetaminophen 7.5-325 mg tablet 1 tab PO Q12H PRN (Reason: pain) cyanocobalamin (vitamin B-12) [Vitamin B-12] 2,000 mcg tablet extended release 2,000 mcg PO DAILY amitriptyline 50 mg tablet 50 mg PO .QHS atorvastatin 80 mg tablet 80 mg PO .QHS Forms: Portal Instructions
--- NOTE | 2023-08-11 16:03 | PC.NURSE ---
[facility] and dr gutierrez made aware of cardotid us reading. spoke with both regarding pt transfer for possible carotid intervention. pt made aware, in agreement.
--- NOTE | 2023-08-11 16:24 | CM.NOTE ---
Evangelina RAHMAN spoke with [facility] regarding pt's transfer and was told they are not in pt's network and pt needs to be aware. Case Management discussed this with pt, pt does have Medicaid as secondary. Pt states he is not worried about it and still consents to transfer.
[2023-08-11 16:26] LABS: Glucometer 165 mg/dL (74-106)
[2023-08-11] MEDS: GABAPENTIN 300 MG CAPSULE 600 MG PO (21:09)
[2023-08-11] MEDS: AMITRIPTYLINE HCL 50 MG TABLET PO (21:09)
[2023-08-11] MEDS: ATORVASTATIN CALCIUM 40 MG TABLET 80 MG PO (21:09)
[2023-08-11] MEDS: INSULIN DETEMIR 300 UNIT/3 ML INSULN.PEN 10 UNIT SUBQ (21:16)
[2023-08-11 21:22] LABS: Glucometer 206 mg/dL (74-106)
[2023-08-12] VITALS (54 sets, daily range): BP systolic 152–180; BP diastolic 62–86; PULSE 66–93; RESP 2–84; TEMP 36.4–36.8; O2SAT 94–98
[2023-08-12] MEDS: ROPINIROLE HCL 1 MG TABLET 3 MG PO ×2 (05:12→15:38)
[2023-08-12 05:30] LABS: Basophils Percent Auto 0.5 % (0.2-2.0); Eosinophils Absolute Auto 0.2 10^3/uL (0.0-0.7); Eosinophils Percent Auto 3.7 % (0.9-7.0); Hematocrit 35.8 % (42.0-54.0); Immature Granulocytes Abs Auto 0.01 10^3/uL (0.00-0.03); Immature Granulocytes Pct Auto 0.2 % (0.0-0.5); Lymphocytes Absolute Auto 0.4 10^3/uL (1.2-3.8); Lymphocytes Percent Auto 7.3 % (20.5-60.0); Mean Corpuscular HGB Conc 30.7 g/dL (29.9-35.2); Mean Corpuscular Hemoglobin 29.5 pg (25.9-34.0); Monocytes Absolute Auto 0.4 10^3/uL (0.3-0.8); Monocytes Percent Auto 8.1 % (1.7-12.0); Neutrophils Absolute Auto 4.4 10^3/uL (1.4-6.5); Neutrophils Percent Auto 80.2 % (43.0-75.0); Platelet Count 119 10^3/uL (150-450); Red Blood Count 3.73 10^6/uL (4.70-6.10); Red Cell Distribution Width 14.4 % (11.0-15.0); White Blood Count 5.5 10^3/uL (4.0-11.0)
[2023-08-12 05:33] LABS: Anion Gap 8.7; Calcium 8.9 mg/dL (8.5-10.1); Carbon Dioxide 27.9 mmol/L (21.0-32.0); Chloride 107 mmol/L (98-107); Estimated GFR (African America 27 (>=60); Estimated GFR (Non-African Ame 22 (>=60); Glucose 97 mg/dL (74-106); Potassium 4.6 mmol/L (3.5-5.1); Sodium 139 mmol/L (136-145)
--- NOTE | 2023-08-12 08:04 | CM.NOTE ---
Rounds made with Dr. Lazo, awaiting bed for transfer to higher level of care.
--- NOTE | 2023-08-12 08:49 | P.PN_ITS ---
Exam Constitutional Vital Signs, click to edit/add: Last Vital Signs Temp 97.9 F 08/12/23 03:20 Pulse 89 08/12/23 04:02 Resp 20 08/12/23 04:02 BP 152/62 H 08/12/23 03:20 Pulse Ox 96 08/12/23 03:20 O2 Del Method Room Air 08/12/23 03:20 Progress Note: Objective Labs Labs: Short CBC 08/12/23 Range/Units 04:59 WBC 5.5 (4.0-11.0) 10^3/uL Hgb 11.0 L (14.0-18.0) g/dL Hct 35.8 L (42.0-54.0) % Plt Count 119 L (150-450) 10^3/uL BMP 08/12/23 04:59 Sodium 139 Potassium 4.6 Chloride 107 Carbon Dioxide 27.9 BUN 43.0 H Creatinine 2.86 H Glucose 97 Calcium 8.9 Progress Note: A&P Assessment and Plan (1) Acute CVA (cerebrovascular accident): Plan Sinus tachycardia, uncontrolled hypertension with 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 Uncontrolled hypertension Moderate protein calorie malnutrition Iron deficiency anemia Thrombocytopenia Insulin-dependent diabetes mellitus End-stage kidney disease-patient does home peritoneal dialysis
[2023-08-12] MEDS: MULTIVITAMIN TABLET 1 TAB PO (09:05)
[2023-08-12] MEDS: SERTRALINE HCL 100 MG TABLET PO (09:05)
[2023-08-12] MEDS: CHOLECALCIFEROL (VITAMIN D3) 25 MCG/1,000 UNITS TABLET PO (09:05)
[2023-08-12] MEDS: TAMSULOSIN HCL 0.4 MG CAPSULE PO (09:05)
[2023-08-12] MEDS: CILOSTAZOL 100 MG TABLET PO (09:05)
[2023-08-12] MEDS: POTASSIUM CHLORIDE 10 MEQ ER TABLET PO (09:05)
[2023-08-12] MEDS: ASPIRIN 81 MG TABLET.DR 324 MG PO (09:06)
[2023-08-12] MEDS: ENSURE HP 237 ML LIQUID PO (09:06)
--- NOTE | 2023-08-12 10:43 | REH.PTDLY ---
Physical Therapy Daily Note PT Daily Note/Assess Start: 08/12/23 10:37 Freq: Status: Active Protocol: Document 08/12/23 10:39 BINU (Rec: 08/12/23 10:43 BINU [id number]) Physical Therapy Daily Note/Assessment Time In 10:19 Time Out 10:32 Subjective Pt up in room upon arrival, ambulating with no device. Wanting to ask nurse what the plan is or when he will get transferred. RN is in another patients room at this time, but pt is willing to work with PT Therapeutic Exercise Minutes (minutes) 7 Therapeutic Exercise Units 1 Therapeutic Exercise Treatment Instructed in seated B LE LAQ and marching. Then instructed in standing exs 10x ea including HR, marching, mini squats, HS curl, hip abd, hip flex, and hip ext. Therapeutic Activity Minutes (minutes) 5 Therapeutic Activity Units 0 Chair Transfer Ability Independent Therapeutic Activity Comments Pt ambulated with no AD SBA, 225 feet with pt occasionally touching HR in hallway. Denies any complaints of fatigue. Uses rollator and SC at home when needed. Total Therapy Minutes 12 Total Physical Therapy Units 1 Daily Note Summary Pt has improved gait today and stamina with exs. Able to progress to standing program. Denies any complaints post rx. Pt is waiting to be transferred to another hospital as his carotid arteries need 'cleaned out' per pt.
[2023-08-12] MEDS: GABAPENTIN 300 MG CAPSULE PO (10:52)
[2023-08-12 12:01] LABS: Glucometer 168 mg/dL (74-106)
[2023-08-12 16:50] LABS: Glucometer 122 mg/dL (74-106)
--- NOTE | 2023-08-12 18:26 | P.DS_ITS ---
DS: Providers Provider Date of admission: 08/10/23 18:09 Primary care physician: Jono Robert MD Consults: 08/10/23 18:30 Consult to Telestroke Routine Reason for consultation: tallked to in er Has provider been notified: No 08/10/23 18:32 Occupational Therapy Eval and Treat Routine Reason for consultation: Only if needed for Rehab Has provider been notified: No Physical Therapy Eval and Treat Routine Reason for consultation: Eval and Treat Has provider been notified: No DS: Diagnosis Discharge Diagnosis (1) Acute CVA (cerebrovascular accident): Plan Sinus tachycardia, uncontrolled hypertension with 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 Uncontrolled hypertension Moderate protein calorie malnutrition Iron deficiency anemia Thrombocytopenia Insulin-dependent diabetes mellitus End-stage kidney disease-patient does home peritoneal dialysis DS: Summary Hospital Course Hospital Course: Patient presented to the emergency room with slurred speech and some dysarthria and increase in his poor balance. He has a history of middle cerebral artery stroke. He was almost fully recovered that other than a little bit of imbalance. This morning he noticed that his imbalance was worse daughter noticed that his speech was worse as well. Presented to the emergency room. At that time he was already starting to improve. Noncontrast CT done in ER showed no bleed. Case was discussed with telemetry stroke team. [place] patient was okay to stay here since he was not a stroke in evolution. Did start him on aspirin. 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 This qian case with telestroke and they did recommend patient have possible surgical intervention with that. Jonel de dios was placed on a waiting list to 2 outside facilities. No vascular surgery here. Discussed case with [facility] agreed to accept patient in transfer for likely surgical intervention for his left internal carotid obstruction. Medications see list. Follow-up with PCP at discharge from outside facility Time Spent with Patient Time attestation: Total time spent providing and/or coordinating discharge services: Exam Constitutional Vital Signs, click to edit/add: Last Vital Signs Temp 97.5 F L 08/12/23 13:18 Pulse 92 H 08/12/23 10:30 Resp 84 H 08/12/23 10:30 BP 165/76 H 08/12/23 13:16 Pulse Ox 98 08/12/23 13:15 O2 Del Method Room Air 08/12/23 12:00 Documenting provider has reviewed patient's vital signs: yes Common normals: no apparent distress HENMT Common normals: moist oral mucous membranes Respiratory Common normals: normal respiratory effort Cardio Common normals: regular rhythm GI Common normals: Normal to inspection, nondistended, normoactive bowel sounds present Extremity Common normals: normal to inspection Neuro Other: Does need to hold on to improve his balance. I am not familiar with his speech pattern but it is a little deliberate DS: Data Data Completed and Pending Labs on day of discharge: Labs from last 24 hours 08/12/23 08/12/23 08/12/23 16:49 11:59 04:59 WBC 5.5 RBC 3.73 L Hgb 11.0 L Hct 35.8 L MCV 96.0 H MCH 29.5 MCHC 30.7 RDW 14.4 Plt Count 119 L MPV 11.0 Neut % (Auto) 80.2 H Lymph % (Auto) 7.3 L [place] % (Auto) 8.1 Eos % (Auto) 3.7 Baso % (Auto) 0.5 Neut # (Auto) 4.4 Lymph # (Auto) 0.4 L [place] # (Auto) 0.4 Eos # (Auto) 0.2 Baso # (Auto) 0.0 Abs Immat Gran (auto) 0.01 Imm/Tot Granulo (auto) 0.2 Sodium 139 Potassium 4.6 Chloride 107 Carbon Dioxide 27.9 Anion Gap 8.7 BUN 43.0 H Creatinine 2.86 H Est GFR ( Amer) 27 L Est GFR (Non-Af Amer) 22 L BUN/Creatinine Ratio 15.0 Glucose 97 Calcium 8.9 POC Glucose 122 H 168 H 08/11/23 21:16 WBC RBC Hgb Hct MCV MCH MCHC RDW Plt Count MPV Neut % (Auto) Lymph % (Auto) [place] % (Auto) Eos % (Auto) Baso % (Auto) Neut # (Auto) Lymph # (Auto) [place] # (Auto) Eos # (Auto) Baso # (Auto) Abs Immat Gran (auto) Imm/Tot Granulo (auto) Sodium Potassium Chloride Carbon Dioxide Anion Gap BUN Creatinine Est GFR ( Amer) Est GFR (Non-Af Amer) BUN/Creatinine Ratio Glucose Calcium POC Glucose 206 H Discharge Plan Discharge Disposition: [facility]
--- NOTE | 2023-08-12 20:41 | PC.NURSE ---
called and notified randy Flores and [facility] [place] on that the patient was transferred at this time
== END 2023-08-12 20:35 | disposition short-term general hospital (02) ==
LOC: ER 16:29 → ICU 18:16
PROVIDERS: Admitting Provider Family Medicine; Emergency Provider Emergency Medicine Emergency Medical Services; PCP Family Medicine; Visit Provider Family Medicine
DX: I63.232 Cerebral infarction due to unspecified occlusion or stenosis of left carotid arteries (principal); E11.22 Type 2 diabetes mellitus with diabetic chronic kidney disease; I12.0 Hypertensive chronic kidney disease with stage 5 chronic kidney disease or end stage renal disease; R00.0 Tachycardia, unspecified; E44.0 Moderate protein-calorie malnutrition; D50.9 Iron deficiency anemia, unspecified; D69.6 Thrombocytopenia, unspecified; N18.6 End stage renal disease; F17.210 Nicotine dependence, cigarettes, uncomplicated; Z68.26 Body mass index [BMI] 26.0-26.9, adult; Z79.899 Other long term (current) drug therapy; Z79.4 Long term (current) use of insulin; Z79.85 Long-term (current) use of injectable non-insulin antidiabetic drugs; Z86.73 Personal history of transient ischemic attack (TIA), and cerebral infarction without residual deficits; Z99.2 Dependence on renal dialysis
CPT/HCPCS: 36415; 70450; 70551; 71045; 80048; 80053; 82948; 84484; 85025; 85610; 85730; 93005; 93306; 93880; 94667; 94668; 94761; 97110; 97161; 97165; 99285; G0378; Q3014

== ENCOUNTER 2024-02-15 14:54 | Outpatient (OUT) | payer MEDICARE, MEDICAID, SELFPAY | END 2024-02-15 14:55 | disposition home or self-care (01) | LOC: SLEEP 14:54 | PROVIDERS: PCP Family Medicine; Visit Provider Family Medicine | DX: G47.33 Obstructive sleep apnea (adult) (pediatric) (principal) ==

== ENCOUNTER 2024-03-09 06:15 | Emergency (ER) | payer MEDICARE, MEDICAID, SELFPAY ==
[2024-03-09] VITALS (17 sets, daily range): BP systolic 157–176; BP diastolic 72–79; PULSE 77–85; TEMP 36.4; O2SAT 97; BMI 26.6
--- NOTE | 2024-03-09 06:41 | CT_ITS ---
The [address] [address] Patient Name: CHARLOTTE DONAHUE MRN: [id number] date: 1950 Sex: M Assigned Patient Location: ER Current Patient Location: ER Accession/Order Number: [id number] Exam Date: 03/09/2024 06:48 Report Date: 03/09/2024 07:41 At the request of: TRAN GANDARA Procedure: CT head/brain wo con EXAMINATION: CT head/brain wo con HISTORY: Head injury COMPARISON: CT head 08/10/2023 TECHNIQUE: Axial CT images were obtained without IV contrast. Dose reduction techniques were achieved by using automated exposure control and/or adjustment of mA and/or kV according to patient size and/or use of iterative reconstruction technique. FINDINGS: BRAIN: Large area encephalomalacic changes within lateral left frontal lobe with new wispy areas of acute blood products. No mass effect or midline shift. CSF SPACES: No hydrocephalus, subarachnoid hemorrhage, or mass. Appropriate for age. SKULL: No fracture, mass, or other significant visible lesion. SINUSES: No significant mucosal thickening or fluid on the limited views. ORBITS: No appreciable abnormality on the limited views. OTHER: Area of subcutaneous bruising/hematoma overlying left forehead. CT/CT head/brain wo con IMPRESSION: 1. Acute hemorrhage within area of chronic encephalomalacic changes of the posterior lateral aspect of the left frontal lobe. No mass effect. #2 subcutaneous hematoma/bruising overlying left forehead. No fracture. Findings discussed via telephone with emergency department physician at 7:37 AM. Electronically authenticated by: ROCKY BENITEZ Date: 03/09/2024 07:41
--- NOTE | 2024-03-09 06:42 | ED.GENADUL1 ---
HPI HPI - General Adult General Chief complaint: Fall Stated complaint: FALL/HEAD INJURY Time Seen by Provider: 03/09/24 06:17 Source: patient Mode of arrival: walk-in Limitations: no limitations History of Present Illness HPI narrative: 73-year-old male presents for laceration to his forehead. This was sustained just before coming into the emergency department on the metal frame of his bed. No LOC and no other injury was sustained. There was some bleeding and he thinks he might need stitches. He does not know when his last tetanus shot was, it has been more than 10 years. Related Data Home Medications ?Medication ?Instructions ?Recorded ?Confirmed cholecalciferol (vitamin D3) 25 1,000 unit PO DAILY 08/10/23 08/10/23 mcg (1,000 unit) tablet (Vitamin D3) cilostazol 100 mg tablet 100 mg PO BID 08/10/23 08/10/23 cyanocobalamin (vitamin B-12) 2,000 mcg PO DAILY 08/10/23 08/10/23 2,000 mcg tablet,extended release (Vitamin B-12 ER) dulaglutide 0.75 mg/0.5 mL 0.75 mg subcut QWEEK 08/10/23 08/10/23 subcutaneous pen injector (Trulicity) gabapentin 600 mg tablet 600 mg PO .COMPLEX 08/10/23 08/11/23 insulin aspart U-100 100 unit/mL 1 sliding scale dose subcut ACHS 08/10/23 08/10/23 (3 mL) subcutaneous pen (Novolog FlexPen U-100 Insulin aspart) insulin glargine 100 unit/mL (3 10 unit subcut BEDTIME 08/10/23 08/10/23 mL) subcutaneous pen (Lantus Solostar U-100 Insulin) lanthanum 500 mg chewable tablet 500 mg PO TID 08/10/23 08/10/23 (Fosrenol) midodrine 10 mg tablet 10 mg PO TID 08/10/23 08/10/23 multivitamin 1 tab PO DAILY 08/10/23 08/10/23 nutritional supplements (Re-Gen 1 ea PO .MON, WED, FRI 08/10/23 08/10/23 oral liquid) oxycodone-acetaminophen 7.5 mg-325 1 tab PO Q12H PRN pain 08/10/23 08/10/23 mg tablet ropinirole 3 mg tablet 3 mg PO TID 08/10/23 08/10/23 sertraline 100 mg tablet 150 mg PO Q24H 08/10/23 08/10/23 tamsulosin 0.4 mg capsule 0.8 mg PO BID 08/10/23 08/11/23 trazodone 50 mg tablet 50 mg PO BEDTIME 08/10/23 08/10/23 amitriptyline 50 mg tablet 50 mg PO .QHS 08/11/23 08/11/23 atorvastatin 80 mg tablet 80 mg PO .QHS 08/11/23 08/11/23 Previous Rx's ?Medication ?Instructions ?Recorded aspirin 325 mg tablet,delayed 325 mg PO DAILY #30 tabs 08/11/23 release Allergies Allergy/AdvReac Type Severity Reaction Status Date / Time Penicillins Allergy Severe Rash Verified 03/09/24 06:19 Opioid HPI Opioid Management Most Recent Opioid Data: No Data to Display Review of Systems ROS Narrative A ten point review of systems is negative except as noted above. 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 - Other specified diabetes mellitus without complications (ICD-10) T9 vertebral fracture ?S22.079A - Unspecified fracture of T9-T10 vertebra, initial encounter for closed fracture (ICD-10) Diarrhea ?R19.7 - Diarrhea, unspecified (ICD-10) Fall ?W19.XXXA - Unspecified fall, initial encounter (ICD-10) CVA (cerebral vascular accident) ?I63.9 - Cerebral infarction, unspecified (ICD-10) Peritoneal dialysis catheter in place ?Z99.2 - Dependence on renal dialysis (ICD-10) 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 ?N19 - Unspecified kidney failure (ICD-10) ?I99.9 - Unspecified disorder of circulatory system (ICD-10) Myocardial infarction ?I21.9 - Acute myocardial infarction, unspecified (ICD-10) Social History (Updated 08/10/23 @ 21:02 by Adrianna Restrepo) Within the past year, how often did you have a drink containing alcohol: monthly or less Within the past year, how many standard drinks containing alcohol did you have on a typical day: 1 or 2 Within the past year, how often did you have six or more drinks on one occasion: never Total score: 0 Score interpretation: A score less than 4 is consistent with normal alcohol consumption. Smoking status: Heavy tobacco smoker Non-prescribed substance use: denies use Previous occupational history: retired Known occupational exposures/hazards: No Highest level of school completed/degree received: high school graduate Are you now , , , , never or living with a partner: In a typical week, how many times do you talk on the telephone with family, friends, or neighbors: twice per week How often do you get together with friends or relatives: never How often do you attend religion or christian services: never Do you belong to any clubs or organizations such as religion groups unions, fraternal or athletic groups, or school groups: no Total score: 0 Score interpretation: A score of less than or equal to 1 indicates the most socially isolated. Little interest or pleasure in doing things: not at all Feeling down, depressed, or hopeless: not at all Feel stressed/tense/nervous/anxious/difficulty sleeping: only a little Do you think of yourself as: straight/heterosexual Gender Identity: male Exam Narrative Exam Narrative: Nurses note and vital signs reviewed and patient is not hypoxic. General: The patient appears in no apparent distress. Patient is resting comfortably on cart. Skin: Warm, dry, no pallor noted. There is no rash noted. Head: Normocephalic, left forehead is a hematoma with associated 1.5 cm laceration. C-spine nontender Eye: Normal conjunctiva, no drainage Ears, Nose, Mouth, and Throat: oral mucosa is moist. Nares patent. Cardiovascular: Not tachycardic Respiratory: Patient is in no distress, no accessory muscle use, lungs are clear to auscultation, no wheezing, rales or rhonchi Back: non-tender GI: Soft and nontender Musculoskeletal: The patient has no evidence of calf tenderness, no pitting edema, symmetrical pulses noted bilaterally Neurological: Awake alert and oriented. Upper and lower extremity strength intact Psychiatric: Cooperative Constitutional Vital Signs, click to edit/add: Last Vital Signs Temp 97.6 F 03/09/24 06:21 Pulse 84 03/09/24 06:21 Resp 18 03/09/24 06:21 BP 173/74 H 03/09/24 06:21 Pulse Ox 97 03/09/24 06:21 O2 Del Method Room Air 03/09/24 06:21 Course Vital Signs Vital signs: Vital Signs Temperature 97.6 F 03/09/24 06:21 Pulse Rate 84 03/09/24 06:21 Respiratory Rate 18 03/09/24 06:21 Blood Pressure 173/74 H 03/09/24 06:21 Pulse Oximetry 97 03/09/24 06:21 Oxygen Delivery Method Room Air 03/09/24 06:21 Temperature 97.6 F 03/09/24 06:21 Pulse Rate 84 03/09/24 06:21 Respiratory Rate 18 03/09/24 06:21 Blood Pressure 173/74 H 03/09/24 06:21 Pulse Oximetry 97 03/09/24 06:21 Oxygen Delivery Method Room Air 03/09/24 06:21 Medical Decision Making MDM Narrative Medical decision making narrative: Tetanus is updated. The wound is closed. CT scan is pending and the patient is signed out to subsequent physician. Differential Diagnosis Differential Diagnosis: Laceration, hematoma, intracranial hemorrhage Discharge Plan Discharge Patient Disposition: Still a Patient Procedures ED Procedure Instructions Procedures Procedures: The following procedure was performed by me. Local infiltration was carried out with 1% lidocaine without epinephrine resulting in complete skin anesthesia. The area was prepped with Betadine x 3 and draped sterilely and explored for foreign bodies and none were found. The wound was then closed with three 4-0 Ethilon sutures resulting in good skin reapproximation and no complications. The patient tolerated the procedure well.
[2024-03-09] MEDS: LIDOCAINE HCL 1% 100 MG/10 ML MDV INJ (06:44)
[2024-03-09] MEDS: ADACEL DIPH,PERTUSS(ACELL),TET VAC/PF 0.5 ML ADULT SYRINGE IM (06:44)
[2024-03-09 07:54] LABS: Hematocrit 36.4 % (42.0-54.0); Hemoglobin 11.9 g/dL (14.0-18.0); Mean Corpuscular HGB Conc 32.7 g/dL (29.9-35.2); Mean Corpuscular Hemoglobin 31.1 pg (25.9-34.0); Mean Platelet Volume 10.4 fL (9.5-13.5); Platelet Count 139 10^3/uL (150-450); Red Blood Count 3.83 10^6/uL (4.70-6.10); Red Cell Distribution Width 14.3 % (11.0-15.0); White Blood Count 7.3 10^3/uL (4.0-11.0)
[2024-03-09] MEDS: GABAPENTIN 400 MG CAPSULE PO (07:55)
[2024-03-09 08:10] LABS: Alanine Aminotransferase 28 U/L (16-63); Albumin Globulin Ratio 0.8; Albumin Level 2.9 g/dL (3.4-5.0); Alkaline Phosphatase 97 U/L (46-116); Anion Gap 14.1; Aspartate Amino Transferase 24 U/L (15-37); BUN Creatinine Ratio 12.3; Bilirubin Total 0.3 mg/dL (0.2-1.0); Calcium 9.9 mg/dL (8.5-10.1); Carbon Dioxide 27.8 mmol/L (21.0-32.0); Chloride 102 mmol/L (98-107); Estimated GFR (African America 19 (>=60); Estimated GFR (Non-African Ame 16 (>=60); Ethanol <3 mg/dL; Globulin 3.7 g/dL; Glucose 206 mg/dL (74-106); INR 0.94; Partial Thromboplastin Time 26.6 sec (22.3-36.2); Potassium 3.9 mmol/L (3.5-5.1); Sodium 140 mmol/L (136-145); Total Protein 6.6 g/dL (6.4-8.2)
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
[2024-03-09 08:26] LABS: Eosinophils Absolute Manual 0.36 10^3/uL (0.00-0.70); Lymphocytes Absolute Manual 0.73 10^3/uL (1.20-3.80); Monocytes Absolute Manual 0.43 10^3/uL (0.30-0.80); Segmented Neut Absolute Manual 5.76 10^3/uL (1.4-6.5)
[2024-03-09 08:28] LABS: Anisocytosis 1+
--- NOTE | 2024-03-09 08:58 | XR_ITS ---
The [address] [address] Patient Name: CHARLOTTE DONAHUE MRN: [id number] date: 1950 Sex: M Assigned Patient Location: ER Current Patient Location: ER Accession/Order Number: [id number] Exam Date: 03/09/2024 09:08 Report Date: 03/09/2024 09:41 At the request of: CHARITO DEMARCO Procedure: XR shoulder LT min 2V PROCEDURE: XR shoulder LT min 2V HISTORY: fall ; anterior left shoulder pain since COMPARISON: None. FINDINGS: BONES:Mild degenerative changes of the glenohumeral joint and acromioclavicular joint. No fracture, dislocation, bone lesion. Small subchondral cysts within lateral humeral head in region of rotator cuff insertion. SOFT TISSUES:No visible soft tissue swelling. EFFUSION:None visible. OTHER: Negative. XR/XR shoulder LT min 2V IMPRESSION: 1. No appreciable acute abnormality. 2. Mild degenerative changes. Electronically authenticated by: ROCKY BENITEZ Date: 03/09/2024 09:41
--- NOTE | 2024-03-09 11:45 | ECG_ITS ---
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
== END 2024-03-09 10:23 | disposition short-term general hospital (02) ==
PROVIDERS: Emergency Provider Emergency Medicine; PCP Family Medicine
DX: S06.300A Unspecified focal traumatic brain injury without loss of consciousness, initial encounter (principal); S01.81XA Laceration without foreign body of other part of head, initial encounter; X58.XXXA Exposure to other specified factors, initial encounter; Z23 Encounter for immunization; F17.200 Nicotine dependence, unspecified, uncomplicated; M25.512 Pain in left shoulder; Z86.73 Personal history of transient ischemic attack (TIA), and cerebral infarction without residual deficits; Z79.899 Other long term (current) drug therapy; G93.89 Other specified disorders of brain
CPT/HCPCS: 12011; 36415; 70450; 73030; 80053; 80320; 85007; 85027; 85610; 85730; 90471; 90715; 93005; 99285

== ENCOUNTER 2024-03-29 12:19 | Emergency (ER) | payer MEDICARE, MEDICAID, SELFPAY ==
[2024-03-29] VITALS (8 sets, daily range): BP systolic 154; BP diastolic 42; PULSE 72–92; TEMP 36.9; O2SAT 95; BMI 26.3
--- NOTE | 2024-03-29 12:30 | ECG_ITS ---
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
[2024-03-29] MEDS: 0.9 % SODIUM CHLORIDE 1,000 ML 1000 ML IV (13:05)
[2024-03-29 13:09] LABS: Basophils Percent Auto 0.4 % (0.2-2.0); Eosinophils Absolute Auto 0.4 10^3/uL (0.0-0.7); Eosinophils Percent Auto 5.1 % (0.9-7.0); Hematocrit 32.5 % (42.0-54.0); Hemoglobin 10.7 g/dL (14.0-18.0); Immature Granulocytes Abs Auto 0.04 10^3/uL (0.00-0.03); Immature Granulocytes Pct Auto 0.6 % (0.0-0.5); Lymphocytes Absolute Auto 0.4 10^3/uL (1.2-3.8); Lymphocytes Percent Auto 5.2 % (20.5-60.0); Mean Corpuscular HGB Conc 32.9 g/dL (29.9-35.2); Mean Corpuscular Hemoglobin 31.4 pg (25.9-34.0); Mean Corpuscular Volume 95.3 fL (80.0-94.0); Mean Platelet Volume 10.4 fL (9.5-13.5); Monocytes Absolute Auto 0.5 10^3/uL (0.3-0.8); Monocytes Percent Auto 7.2 % (1.7-12.0); Neutrophils Absolute Auto 5.8 10^3/uL (1.4-6.5); Neutrophils Percent Auto 81.5 % (43.0-75.0); Platelet Count 136 10^3/uL (150-450); Red Blood Count 3.41 10^6/uL (4.70-6.10); Red Cell Distribution Width 14.3 % (11.0-15.0); White Blood Count 7.1 10^3/uL (4.0-11.0)
[2024-03-29 13:17] LABS: Internal Control Within Normal Limits; SARS-CoV-2 Ag NEGATIVE (NEGATIVE)
--- NOTE | 2024-03-29 13:20 | ED_ITS ---
HPI HPI - General Adult General Chief complaint: Fall Stated complaint: GENERAL WEAKNESS/ FALL Time Seen by Provider: 03/29/24 12:22 Source: patient Mode of arrival: walk-in Limitations: no limitations History of Present Illness HPI narrative: Patient presents ED complaining of multiple falls. Patient states that he has been falling a lot recently and falling down onto his knees because his legs just buckle and give out. He complains of generalized weakness. He was admitted to [facility] for the same a couple of weeks ago. He fell and hit his head and had a questionable brain bleed. They watched him overnight and then sent him home the next day. He does still have a bruise on his head from that fall but states he hit his head again on his recent falls. He complains of left knee pain, headache, neck pain and generalized weakness. He is a peritoneal dialysis patient and he has been completing his dialysis as scheduled. No acute confusion per patient or family. No chest pain no shortness of breath. No abdominal pain. Related Data Home Medications ?Medication ?Instructions ?Recorded ?Confirmed cholecalciferol (vitamin D3) 25 1,000 unit PO DAILY 08/10/23 03/09/24 mcg (1,000 unit) tablet (Vitamin D3) cilostazol 100 mg tablet 100 mg PO BID 08/10/23 03/09/24 cyanocobalamin (vitamin B-12) 2,000 mcg PO DAILY 08/10/23 03/09/24 2,000 mcg tablet,extended release (Vitamin B-12 ER) dulaglutide 0.75 mg/0.5 mL 0.75 mg subcut QWEEK 08/10/23 03/09/24 subcutaneous pen injector (Trulicity) gabapentin 600 mg tablet 600 mg PO .COMPLEX 08/10/23 03/09/24 insulin aspart U-100 100 unit/mL 1 sliding scale dose subcut ACHS 08/10/23 03/09/24 (3 mL) subcutaneous pen (Novolog FlexPen U-100 Insulin aspart) insulin glargine 100 unit/mL (3 10 unit subcut BEDTIME 08/10/23 03/09/24 mL) subcutaneous pen (Lantus Solostar U-100 Insulin) lanthanum 500 mg chewable tablet 1,000 mg PO TID 08/10/23 03/09/24 (Fosrenol) multivitamin 1 tab PO DAILY 08/10/23 03/09/24 nutritional supplements (Re-Gen 1 ea PO .THU, THU, Thu08/10/23 03/09/24 oral liquid) oxycodone-acetaminophen 7.5 mg-325 1 tab PO Q12H PRN pain 08/10/23 03/09/24 mg tablet ropinirole 3 mg tablet 3 mg PO TID 08/10/23 03/09/24 sertraline 100 mg tablet 150 mg PO Q24H 08/10/23 03/09/24 tamsulosin 0.4 mg capsule 0.8 mg PO BID 08/10/23 03/09/24 trazodone 50 mg tablet 50 mg PO BEDTIME 08/10/23 03/09/24 amitriptyline 50 mg tablet 50 mg PO .QHS 08/11/23 03/09/24 aspirin 325 mg tablet,delayed 81 mg PO DAILY 03/09/24 03/09/24 release clopidogrel 75 mg tablet 75 mg PO DAILY 03/09/24 03/09/24 cyclobenzaprine 10 mg tablet 10 mg PO BEDTIME 03/09/24 03/09/24 furosemide 80 mg tablet 80 mg PO Q12H 03/09/24 03/09/24 tizanidine 4 mg tablet 4 mg PO Q8H PRN muscle spasticity 03/09/24 03/09/24 Allergies Allergy/AdvReac Type Severity Reaction Status Date / Time Penicillins Allergy Severe Rash Verified 03/09/24 06:19 Opioid HPI Opioid Management Most Recent Opioid Data: Last Pain Scale 6 03/29/24 13:00 Review of Systems ROS Status of ROS 10 or more systems reviewed and unremark able except as noted in history and below [facility] Medical History (Updated 03/29/24 @ 13:58 by Sarah Main DO) DNR (do not resuscitate) ?Z66 - Do not resuscitate (ICD-10) Acute CVA (cerebrovascular accident) ?I63.9 - Cerebral infarction, unspecified (ICD-10) Orthostatic hypotension ?I95.1 - Orthostatic hypotension (ICD-10) Rhabdomyolysis ?M62.82 - Rhabdomyolysis (ICD-10) Skin cancer ?C44.90 - Unspecified malignant neoplasm of skin, unspecified (ICD-10) Emphysema/COPD ?J43.9 - Emphysema, unspecified (ICD-10) Hypertension ?I10 - Essential (primary) hypertension (ICD-10) Diabetes 1.5, 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 - Other specified diabetes mellitus without complications (ICD-10) T9 vertebral fracture ?S22.079A - Unspecified fracture of T9-T10 vertebra, initial encounter for closed fracture (ICD-10) Diarrhea ?R19.7 - Diarrhea, unspecified (ICD-10) Fall ?W19.XXXA - Unspecified fall, initial encounter (ICD-10) CVA (cerebral vascular accident) ?I63.9 - Cerebral infarction, unspecified (ICD-10) Peritoneal dialysis catheter in place ?Z99.2 - Dependence on renal dialysis (ICD-10) 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 ?N19 - Unspecified kidney failure (ICD-10) ?I99.9 - Unspecified disorder of circulatory system (ICD-10) Myocardial infarction ?I21.9 - Acute myocardial infarction, unspecified (ICD-10) Social History (Updated 08/10/23 @ 21:02 by Adrianna Restrepo) Within the past year, how often did you have a drink containing alcohol: monthly or less Within the past year, how many standard drinks containing alcohol did you have on a typical day: 1 or 2 Within the past year, how often did you have six or more drinks on one occasion: never Total score: 0 Score interpretation: A score less than 4 is consistent with normal alcohol consumption. Smoking status: Heavy tobacco smoker Non-prescribed substance use: denies use Previous occupational history: retired Known occupational exposures/hazards: No Highest level of school completed/degree received: high school graduate Are you now , , , , never or living with a partner: In a typical week, how many times do you talk on the telephone with family, friends, or neighbors: twice per week How often do you get together with friends or relatives: never How often do you attend christianity or sabianism services: never Do you belong to any clubs or organizations such as christianity groups unions, fraternal or athletic groups, or school groups: no Total score: 0 Score interpretation: A score of less than or equal to 1 indicates the most socially isolated. Little interest or pleasure in doing things: not at all Feeling down, depressed, or hopeless: not at all Feel stressed/tense/nervous/anxious/difficulty sleeping: only a little Do you think of yourself as: straight/heterosexual Gender Identity: male Exam Narrative Exam Narrative: Time Seen: [] Vital Signs: [Per nurse's notes.] General: [Alert] Skin: [Warm, dry, no rash.] Head: [Normocephalic,Ecchymosis around the left eye and hematoma in the left eyebrow from his previous fall Neck: [Supple, trachea midline.Diffuse C-spine tenderness Eye: [Pupils are equal, round and reactive to light, extraocular movements are intact, normal conjunctiva.] Ears, nose, mouth and throat: oral mucosa Slightly dry Cardiovascular: [Regular rate and rhythm, no murmur.] Respiratory: [Lungs are clear to auscultation, respirations are non-labored, breath sounds are equal.] Chest wall: [No tenderness, no deformity.] Gastrointestinal: [Soft, nontender, non distended, normal bowel sounds.Peritoneal dialysis catheter in place no surrounding erythema no drainage MSK: 5 out of 5 muscle strength x 4 extremities no calf pain or edema. Tenderness to bilateral knees worse on the left. Abrasion to both knees Lymphatics: [No lymphadenopathy.] Psychiatric: [Cooperative, appropriate mood & affect.] Neurological: [Alert and oriented to person, place, time, and situation, no focal neurological deficit observed.] Constitutional Vital Signs, click to edit/add: Last Vital Signs Temp 98.4 F 03/29/24 12:27 Pulse 77 03/29/24 13:50 Resp 15 03/29/24 13:50 BP 154/42 H 03/29/24 12:28 Pulse Ox 95 03/29/24 12:27 O2 Del Method Room Air 03/29/24 12:27 Course Vital Signs Vital signs: Vital Signs Temperature 98.4 F 03/29/24 12:27 Pulse Rate 92 H 03/29/24 12:27 Respiratory Rate 18 03/29/24 12:27 Blood Pressure 154/42 H 03/29/24 12:27 Pulse Oximetry 95 03/29/24 12:27 Oxygen Delivery Method Room Air 03/29/24 12:27 Temperature 98.4 F 03/29/24 12:27 Pulse Rate 77 03/29/24 13:50 Respiratory Rate 15 03/29/24 13:50 Blood Pressure 154/42 H 03/29/24 12:28 Pulse Oximetry 95 03/29/24 12:27 Oxygen Delivery Method Room Air 03/29/24 12:27 Medical Decision Making MDM Narrative Medical decision making narrative: Patient's labs and imaging are nonacute. He does have chronic issues but no acute infection or abnormality in the blood work or on the images. Patient's family states that they have him excepted into a intermediate and he is cleared to go there today as long as everything checked out okay here. He will be discharged home from here and he will go to the intermediate this evening. Patient is comfortable with this care plan as well. Differential Diagnosis Differential Diagnosis: Sepsis, weakness, renal failure, electrolyte abnormality Medical Records Medical records reviewed: Yes I reviewed the patient's medical records Lab Data Lab results reviewed: Yes I reviewed the patient's lab results Labs: Lab Results 03/29/24 03/29/24 Range/Units 12:56 12:58 WBC 7.1 (4.0-11.0) 10^3/uL RBC 3.41 L (4.70-6.10) 10^6/uL Hgb 10.7 L (14.0-18.0) g/dL Hct 32.5 L (42.0-54.0) % MCV 95.3 H (80.0-94.0) fL MCH 31.4 (25.9-34.0) pg MCHC 32.9 (29.9-35.2) g/dL RDW 14.3 (11.0-15.0) % Plt Count 136 L (150-450) 10^3/uL MPV 10.4 (9.5-13.5) fL Neut % (Auto) 81.5 H (43.0-75.0) % Lymph % (Auto) 5.2 L (20.5-60.0) % [place] % (Auto) 7.2 (1.7-12.0) % Eos % (Auto) 5.1 (0.9-7.0) % Baso % (Auto) 0.4 (0.2-2.0) % Neut # (Auto) 5.8 (1.4-6.5) 10^3/uL Lymph # (Auto) 0.4 L (1.2-3.8) 10^3/uL [place] # (Auto) 0.5 (0.3-0.8) 10^3/uL Eos # (Auto) 0.4 (0.0-0.7) 10^3/uL Baso # (Auto) 0.0 (0.0-0.1) 10^3/uL Abs Immat Gran (auto) 0.04 H (0.00-0.03) 10^3/uL Imm/Tot Granulo (auto) 0.6 H (0.0-0.5) % PT 10.7 (9.0-11.6) sec INR 1.01 Sodium 142 (136-145) mmol/L Potassium 3.8 (3.5-5.1) mmol/L Chloride 105 (98-107) mmol/L Carbon Dioxide 29.5 (21.0-32.0) mmol/L Anion Gap 11.3 BUN 45.0 H (7.0-18.0) mg/dL Creatinine 3.84 H (0.70-1.30) mg/dL Est GFR ( Amer) 19 L (>=60) Est GFR (Non-Af Amer) 16 L (>=60) BUN/Creatinine Ratio 11.7 Glucose 161 H (74-106) mg/dL Lactate 0.6 (0.4-2.0) mmol/L Calcium 9.3 (8.5-10.1) mg/dL Total Bilirubin 0.3 (0.2-1.0) mg/dL AST 48 H (15-37) U/L ALT 30 (16-63) U/L Alkaline Phosphatase 75 (46-116) U/L Troponin I High Sens 35.7 (4.0-76.1) pg/mL Total Protein 5.9 L (6.4-8.2) g/dL Albumin 2.7 L (3.4-5.0) g/dL Globulin 3.2 g/dL Albumin/Globulin Ratio 0.8 SARS-CoV-2 Ag (CV2AG) Negative (NEGATIVE) Imaging Data CT scan - head: Radiologist's impression: ITS Impressions Cervical Spine CT 03/29/24 13:24 IMPRESSION: 1. No acute intracranial process. 2. No acute fracture or traumatic malalignment of the cervical spine. 3. Chronic changes detailed above. Electronically authenticated by: CESAR PHILLIPS Date: 03/29/2024 13:36 Chest X-Ray 03/29/24 13:24 IMPRESSION: No acute radiographic abnormality Electronically authenticated by: BROOKS QUAN Date: 03/29/2024 13:[address] 03/29/24 13:24 IMPRESSION: 1. No acute intracranial process. 2. No acute fracture or traumatic malalignment of the cervical spine. 3. Chronic changes detailed above. Electronically authenticated by: CESAR PHILLIPS Date: 03/29/2024 13:36 Knee X-Ray 03/29/24 13:24 IMPRESSION: No acute fracture Electronically authenticated by: BROOKS QUAN Date: 03/29/2024 13:35 ECG Data Attestation: I personally reviewed and interpreted this ECG as follows: Interpretation: EKG INTERPRETATION Time: []1255 Rate: []80 Rhythm: _ []Normal sinus rhythm with first-degree AV block ST segments: _ []No acute ST elevation or depression T waves: _ [] Ectopy: _ [] P wave/MA interval: _ [] QRS interval: _ [] QT interval: _ [] Comparison: _ [] Comparison EKG date: [] Performed by: [self] Discharge Plan Discharge Stand Alone Forms: Work/School Release, Portal Instructions Chief Complaint: Fall Clinical Impression: Falls Patient Disposition: Home, Self-Care Time of Disposition Decision: 13:58 Condition: Fair Mode of Transportation: Private Vehicle Prescriptions / Home Meds: No Action cilostazol 100 mg tablet 100 mg PO BID gabapentin 600 mg tablet 600 mg PO .COMPLEX Rx Instructions: 600 mg orally TAKE ONE-HALF TABLET BY MOUTH IN THE MORNING, ONE TABLET BY MOUTH AT NOON AND ONE TABLET BY MOUTH AT BEDTIME; ropinirole 3 mg tablet 3 mg PO TID sertraline 100 mg tablet 150 mg PO Q24H tamsulosin 0.4 mg capsule 0.8 mg PO BID insulin glargine [Lantus Solostar U-100 Insulin] 100 unit/mL (3 mL) insulin pen 10 unit SUBCUT BEDTIME insulin aspart U-100 [Novolog FlexPen U-100 Insulin] 100 unit/mL (3 mL) insulin pen 1 sliding scale dose SUBCUT ACHS Trulicity 0.75 mg/0.5 mL pen injector 0.75 mg subcut QWEEK lanthanum [Fosrenol] 500 mg tablet,chewable 1,000 mg PO TID Rx Instructions: administer with food; chew thoroughly before swallowing Re-Gen Liquid 1 ea PO .MON, WED, FRI multivitamin Tablet 1 tab PO DAILY cholecalciferol (vitamin D3) [Vitamin D3] 25 mcg (1,000 unit) tablet 1,000 unit PO DAILY trazodone 50 mg tablet 50 mg PO BEDTIME oxycodone-acetaminophen 7.5-325 mg tablet 1 tab PO Q12H PRN (Reason: pain) cyanocobalamin (vitamin B-12) [Vitamin B-12] 2,000 mcg tablet extended release 2,000 mcg PO DAILY amitriptyline 50 mg tablet 50 mg PO .QHS clopidogrel 75 mg tablet 75 mg PO DAILY cyclobenzaprine 10 mg tablet 10 mg PO BEDTIME furosemide 80 mg tablet 80 mg PO Q12H tizanidine 4 mg tablet 4 mg PO Q8H PRN (Reason: muscle spasticity) aspirin 325 mg tablet,delayed release (DR/EC) 81 mg PO DAILY Print Language: Uzbek Instructions: Fall Prevention for Older Adults (ED) Referrals: Jono Robert MD [Primary Care Provider] - 1 week
[2024-03-29 13:23] LABS: INR 1.01; Prothrombin Time 10.7 sec (9.0-11.6)
--- NOTE | 2024-03-29 13:24 | XR_ITS ---
The [address] [address] Patient Name: CHARLOTTE DONAHUE MRN: [id number] date: 1950 Sex: M Assigned Patient Location: ER Current Patient Location: ER Accession/Order Number: [id number] Exam Date: 03/29/2024 13:10 Report Date: 03/29/2024 13:35 At the request of: KILLIAN AVILA Procedure: XR knee LT 3V PROCEDURE: XR knee LT 3V COMPARISON: None. HISTORY: falls FINDINGS: BONES:No fracture, acute abnormality, or significant arthropathy. SOFT TISSUES:Negative. No visible soft tissue swelling. EFFUSION:None visible. OTHER: Vascular calcifications. Multiple surgical clips XR/XR knee LT 3V IMPRESSION: No acute fracture Electronically authenticated by: BROOKS QUAN Date: 03/29/2024 13:35
--- NOTE | 2024-03-29 13:24 | XR_ITS ---
The [address] [address] Patient Name: CHARLOTTE DONAHUE MRN: [id number] date: 1950 Sex: M Assigned Patient Location: ER Current Patient Location: ER Accession/Order Number: [id number] Exam Date: 03/29/2024 13:10 Report Date: 03/29/2024 13:30 At the request of: KILLIAN AVILA Procedure: XR chest 1V EXAMINATION: XR chest 1V HISTORY: falls COMPARISON: 08/10/2023 TECHNIQUE: AP portable FINDINGS: LUNGS: No significant pulmonary parenchymal abnormalities. Low lung volumes VASCULATURE: No increased pulmonary vasculature. PLEURA: No pneumothorax, effusion, or pleural thickening. CARDIAC: No cardiomegaly or cardiac silhouette abnormality. MEDIASTINUM: No visible mass or adenopathy. Aortic atherosclerosis BONES: No fracture or visible bone lesion. OTHER: Negative. XR/XR chest 1V IMPRESSION: No acute radiographic abnormality Electronically authenticated by: BROOKS QUAN Date: 03/29/2024 13:30
--- NOTE | 2024-03-29 13:24 | CT_ITS ---
The [address] [address] Patient Name: CHARLOTTE DONAHUE MRN: [id number] date: 1950 Sex: M Assigned Patient Location: ER Current Patient Location: ER Accession/Order Number: [id number] Exam Date: 03/29/2024 13:10 Report Date: 03/29/2024 13:36 At the request of: KILLIAN AVILA Procedure: CT cervical spine wo con EXAM: CT head/brain wo con, CT cervical spine wo con HISTORY: Multiple recent falls, head strike last night, dizziness COMPARISON: CT head 03/09/2024. TECHNIQUE: Axial noncontrast CT imaging of the head and cervical spine was performed without intravenous contrast. This CT exam was performed using one or more of the following dose reduction techniques: Automated exposure control, adjustment of the MA and/or kV according to patient size, or use of iterative reconstruction technique. FINDINGS: CT head Calvarium/skull base: No evidence of acute fracture or destructive lesion. Decreasing size of previously described left frontal scalp contusion. No new scalp contusions are seen. Paranasal sinuses: No air fluid levels. Brain: No acute intracranial hemorrhage. No acute large vascular territory infarct. Redemonstration of encephalomalacia related to sequela of prior insult/injury involving the left anterior MCA distribution with associated cortical mineralization/calcification unchanged from prior. No mass lesion or mass effect. No hydrocephalus. CT cervical spine Motion artifact degrades evaluation of the upper cervical spine. Alignment: Straightening of the normal cervical lordosis. Trace degenerative anterolisthesis of C4 on C5. Vertebrae: Vertebral body heights are maintained. No fracture. Fusion of the right C4-C5 facet joints. Craniocervical junction: No focal abnormality. Degenerative changes: Mild degenerative change of the cervical spine with disc height loss, mild anterior osteophytic spurring and small posterior disc osteophyte complexes. Multilevel moderate uncovertebral and mild to severe facet arthropathy is noted. Facet arthropathy is most prominent on the right at C4-C5 with advanced facet arthropathy. There is associated multilevel mild canal stenosis. Multilevel moderate foraminal stenosis. Additional comments: Vascular sclerosis. Visualized portion of lung apices are clear. CT/CT cervical spine wo con IMPRESSION: 1. No acute intracranial process. 2. No acute fracture or traumatic malalignment of the cervical spine. 3. Chronic changes detailed above. Electronically authenticated by: CESAR PHILLIPS Date: 03/29/2024 13:36
--- NOTE | 2024-03-29 13:24 | CT_ITS ---
The [address] [address] Patient Name: CHARLOTTE DONAHUE MRN: [id number] date: 1950 Sex: M Assigned Patient Location: ER Current Patient Location: ER Accession/Order Number: [id number] Exam Date: 03/29/2024 13:10 Report Date: 03/29/2024 13:36 At the request of: KILLIAN AVILA Procedure: CT head/brain wo con EXAM: CT head/brain wo con, CT cervical spine wo con HISTORY: Multiple recent falls, head strike last night, dizziness COMPARISON: CT head 03/09/2024. TECHNIQUE: Axial noncontrast CT imaging of the head and cervical spine was performed without intravenous contrast. This CT exam was performed using one or more of the following dose reduction techniques: Automated exposure control, adjustment of the MA and/or kV according to patient size, or use of iterative reconstruction technique. FINDINGS: CT head Calvarium/skull base: No evidence of acute fracture or destructive lesion. Decreasing size of previously described left frontal scalp contusion. No new scalp contusions are seen. Paranasal sinuses: No air fluid levels. Brain: No acute intracranial hemorrhage. No acute large vascular territory infarct. Redemonstration of encephalomalacia related to sequela of prior insult/injury involving the left anterior MCA distribution with associated cortical mineralization/calcification unchanged from prior. No mass lesion or mass effect. No hydrocephalus. CT cervical spine Motion artifact degrades evaluation of the upper cervical spine. Alignment: Straightening of the normal cervical lordosis. Trace degenerative anterolisthesis of C4 on C5. Vertebrae: Vertebral body heights are maintained. No fracture. Fusion of the right C4-C5 facet joints. Craniocervical junction: No focal abnormality. Degenerative changes: Mild degenerative change of the cervical spine with disc height loss, mild anterior osteophytic spurring and small posterior disc osteophyte complexes. Multilevel moderate uncovertebral and mild to severe facet arthropathy is noted. Facet arthropathy is most prominent on the right at C4-C5 with advanced facet arthropathy. There is associated multilevel mild canal stenosis. Multilevel moderate foraminal stenosis. Additional comments: Vascular sclerosis. Visualized portion of lung apices are clear. CT/CT head/brain wo con IMPRESSION: 1. No acute intracranial process. 2. No acute fracture or traumatic malalignment of the cervical spine. 3. Chronic changes detailed above. Electronically authenticated by: CESAR PHILLIPS Date: 03/29/2024 13:36
[2024-03-29 13:27] LABS: Alanine Aminotransferase 30 U/L (16-63); Albumin Globulin Ratio 0.8; Albumin Level 2.7 g/dL (3.4-5.0); Alkaline Phosphatase 75 U/L (46-116); Anion Gap 11.3; Aspartate Amino Transferase 48 U/L (15-37); BUN Creatinine Ratio 11.7; Bilirubin Total 0.3 mg/dL (0.2-1.0); Calcium 9.3 mg/dL (8.5-10.1); Carbon Dioxide 29.5 mmol/L (21.0-32.0); Chloride 105 mmol/L (98-107); Estimated GFR (African America 19 (>=60); Estimated GFR (Non-African Ame 16 (>=60); Globulin 3.2 g/dL; Glucose 161 mg/dL (74-106); Potassium 3.8 mmol/L (3.5-5.1); Sodium 142 mmol/L (136-145); Total Protein 5.9 g/dL (6.4-8.2)
[2024-03-29 13:29] LABS: Troponin I High Sensitivity 35.7 pg/mL (4.0-76.1)
[2024-03-29 13:47] LABS: Lactate/Lactic Acid 0.6 mmol/L (0.4-2.0)
[2024-03-29] MEDS: OXYCODONE HCL/ACETAMINOPHEN 5MG/325MG 1 TAB PO (14:28)
== END 2024-03-29 14:38 | disposition home or self-care (01) ==
PROVIDERS: Emergency Provider Emergency Medicine; PCP Family Medicine
DX: Z04.3 Encounter for examination and observation following other accident (principal); R29.6 Repeated falls; F17.200 Nicotine dependence, unspecified, uncomplicated; Z20.822 Contact with and (suspected) exposure to COVID-19; Z86.73 Personal history of transient ischemic attack (TIA), and cerebral infarction without residual deficits
CPT/HCPCS: 36415; 70450; 71045; 72125; 73562; 80053; 83605; 84484; 85025; 85610; 87040; 87811; 93005; 99285

== ENCOUNTER 2024-07-12 15:24 | Outpatient (OUT) | payer MEDICARE, MEDICAID, SELFPAY ==
--- NOTE | 2024-07-12 15:42 | XR_ITS ---
The [address] [address] Patient Name: CHARLOTTE DONAHUE MRN: [id number] date: 1950 Sex: M Assigned Patient Location: [facility] Current Patient Location: [facility] Accession/Order Number: [id number] Exam Date: 07/12/2024 15:35 Report Date: 07/12/2024 15:50 At the request of: BUDDY MARQUEZ Procedure: XR chest 2V EXAM: XR chest 2V HISTORY: Upper Respiratory With Cough And Congestion COMPARISON: 04/22/2023 TECHNIQUE: Upright PA and lateral chest x-ray FINDINGS: The heart is not enlarged and the vasculature is not distended. No acute infiltrate, effusion or pneumothorax is identified. Degenerative changes are seen in the spine and shoulders. The previously identified free air beneath the hemidiaphragms has resolved. XR/XR chest 2V IMPRESSION: No acute infiltrate or evidence of cardiac decompensation. The overall appearance of the chest has not changed significantly. Electronically authenticated by: BEVERLY WELLS Date: 07/12/2024 15:50
== END 2024-07-12 15:25 | disposition home or self-care (01) ==
LOC: RAD 15:25
PROVIDERS: PCP Family Medicine
DX: J06.9 Acute upper respiratory infection, unspecified (principal)
CPT/HCPCS: 71046

== ENCOUNTER 2024-08-29 14:44 | Outpatient (RCR) | payer MEDICARE, MEDICAID, SELFPAY | END 2024-09-22 11:43 | disposition home or self-care (01) | LOC: ST 14:44 | PROVIDERS: PCP Family Medicine; Visit Provider Family Medicine | DX: R13.10 Dysphagia, unspecified (principal); I69.921 Dysphasia following unspecified cerebrovascular disease | CPT/HCPCS: 92526; 92610 ==

== ENCOUNTER 2024-09-09 10:37 | Outpatient (RCR) | payer MEDICARE, MEDICAID, SELFPAY | END 2024-09-30 14:22 | disposition home or self-care (01) | LOC: PT 10:37 | PROVIDERS: PCP Family Medicine; Visit Provider Family Medicine | DX: R26.81 Unsteadiness on feet (principal) | CPT/HCPCS: 97110; 97112; 97162 ==

== ENCOUNTER 2024-10-31 01:13 | Observation (INO) | payer MEDICARE, MEDICAID, SELFPAY ==
[2024-10-31] VITALS (45 sets, daily range): BP systolic 141–206; BP diastolic 55–84; PULSE 59–118; TEMP 36.6–36.7; O2SAT 90–99; BMI 26.8
--- NOTE | 2024-10-31 01:17 | ECG_ITS ---
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 Measurements Intervals [place] Rate: 80 P: 35 MN: 220 QRS: 12 QRSD: 112 T: 116 QT: 388 QTc: 424 Interpretive Statements 1100 Sinus rhythm 1475 with frequent supraventricular premature complexes in a pattern of bigeminy 2231 First degree AV block [address] & Twave abnormality 9150 abnormal ECG Compared to ECG 03/29/2024 12:55:18 ST (T wave) deviation now present Electronically Signed On 10-31-2024 20:23:29 EDT by PERRI FERREIRA M.D.
--- NOTE | 2024-10-31 01:19 | ED.CHESTPAI1 ---
HPI - Chest Pain General Chief Complaint: Chest Pain Stated Complaint: CHEST PAIN Time Seen by Provider: 10/31/24 01:15 History of Present Illness HPI narrative: This 74-year-old male with a history of chronic kidney disease who does peritoneal dialysis at home and has a history of peripheral vascular disease and states he has multiple stents in his body but he does not think he has any in his heart presents for evaluation of midsternal chest pain as well as pain in his neck and jaw. The patient states he has several pinched nerves in his neck which may be causing his pain. He denies any shortness of breath dizziness or diaphoresis. The pain started tonight while giving himself home dialysis. He discontinued the peritoneal dialysis and came to the emergency department. He denies any abdominal pain. He has been doing the peritoneal dialysis for approximately 6 years. He denies any shortness of breath dizziness or diaphoresis. He was given 324 mg baby aspirin by EMS. CODE STATUS is DNR CC Related Data Home Medications ?Medication ?Instructions ?Recorded ?Confirmed cholecalciferol (vitamin D3) 25 1,000 unit PO DAILY 08/10/23 03/09/24 mcg (1,000 unit) tablet (Vitamin D3) cilostazol 100 mg tablet 100 mg PO DAILY 08/10/23 10/31/24 cyanocobalamin (vitamin B-12) 2,000 mcg PO DAILY 08/10/23 10/31/24 2,000 mcg tablet,extended release (Vitamin B-12 ER) dulaglutide 0.75 mg/0.5 mL 0.75 mg subcut QWEEK 08/10/23 03/09/24 subcutaneous pen injector (Trulicity) gabapentin 600 mg tablet 600 mg PO .COMPLEX 08/10/23 03/09/24 insulin aspart U-100 100 unit/mL 1 sliding scale dose subcut ACHS 08/10/23 10/31/24 (3 mL) subcutaneous pen (Novolog FlexPen U-100 Insulin aspart) insulin glargine 100 unit/mL (3 10 unit subcut BEDTIME 08/10/23 10/31/24 mL) subcutaneous pen (Lantus Solostar U-100 Insulin) lanthanum 500 mg chewable tablet 1,500 mg PO TID 08/10/23 10/31/24 (Fosrenol) multivitamin 1 tab PO DAILY 08/10/23 10/31/24 nutritional supplements (Re-Gen 1 ea PO .MON, THU, Thu08/10/23 03/09/24 oral liquid) oxycodone-acetaminophen 7.5 mg-325 1 tab PO Q12H PRN pain 08/10/23 10/31/24 mg tablet ropinirole 3 mg tablet 3 mg PO TID 08/10/23 03/09/24 sertraline 100 mg tablet 150 mg PO Q24H 08/10/23 10/31/24 tamsulosin 0.4 mg capsule 0.4 mg PO BID 08/10/23 10/31/24 trazodone 50 mg tablet 50 mg PO BEDTIME 08/10/23 03/09/24 amitriptyline 50 mg tablet 50 mg PO .QHS 08/11/23 03/09/24 clopidogrel 75 mg tablet 75 mg PO DAILY 03/09/24 10/31/24 cyclobenzaprine 10 mg tablet 10 mg PO BEDTIME 03/09/24 03/09/24 furosemide 80 mg tablet 80 mg PO Q12H 03/09/24 03/09/24 tizanidine 4 mg tablet 4 mg PO Q8H PRN muscle spasticity 03/09/24 10/31/24 Anti-Diarrheal 1 tab PO TID 10/31/24 10/31/24 Probiotic 1 tab PO DAILY 10/31/24 10/31/24 aspirin 81 mg chewable tablet 1 tab PO DAILY 10/31/24 10/31/24 calcitriol 1 mcg/mL oral solution 2 mcg PO DAILY 10/31/24 10/31/24 cholecalciferol (vitamin D3) 1,250 1,250 mcg PO DAILY 10/31/24 10/31/24 mcg (50,000 unit) capsule evolocumab 140 mg/mL subcutaneous 140 mg subcut .14 days 10/31/24 10/31/24 syringe (Repatha Syringe) fiber vitamin daily 1 tab PO DAILY 10/31/24 10/31/24 furosemide 80 mg tablet (Lasix) 80 mg PO BID 10/31/24 10/31/24 gabapentin 100 mg capsule 600 mg PO Q8H 10/31/24 10/31/24 gentamicin 0.1 % topical cream 1 applic topical DAILY 10/31/24 10/31/24 hycosamine 1 tab PO TID 10/31/24 10/31/24 ropinirole 1 mg tablet 3 mg PO TID 10/31/24 10/31/24 semaglutide 0.25 mg or 0.5 mg (2 0.5 mg subcut QWEEK 10/31/24 10/31/24 mg/3 mL) subcutaneous pen injector (Ozempic) Allergies Allergy/AdvReac Type Severity Reaction Status Date / Time Penicillins Allergy Severe Rash Verified 10/31/24 01:21 Review of Systems ROS Status of ROS 10 or more systems reviewed and unremarkable except as noted in history and below [facility] Medical History (Updated 10/31/24 @ 06:32 by Kala Reddy MD) DNR (do not resuscitate) ?Z66 - Do not resuscitate (ICD-10) Acute CVA (cerebrovascular accident) ?I63.9 - Cerebral infarction, unspecified (ICD-10) Orthostatic hypotension ?I95.1 - Orthostatic hypotension (ICD-10) Rhabdomyolysis ?M62.82 - Rhabdomyolysis (ICD-10) Skin cancer ?C44.90 - Unspecified malignant neoplasm of skin, unspecified (ICD-10) Emphysema/COPD ?J43.9 - Emphysema, unspecified (ICD-10) Hypertension ?I10 - Essential (primary) hypertension (ICD-10) Diabetes 1.5, 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 - Other specified diabetes mellitus without complications (ICD-10) T9 vertebral fracture ?S22.079A - Unspecified fracture of T9-T10 vertebra, initial encounter for closed fracture (ICD-10) Diarrhea ?R19.7 - Diarrhea, unspecified (ICD-10) Fall ?W19.XXXA - Unspecified fall, initial encounter (ICD-10) CVA (cerebral vascular accident) ?I63.9 - Cerebral infarction, unspecified (ICD-10) Peritoneal dialysis catheter in place ?Z99.2 - Dependence on renal dialysis (ICD-10) 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 ?N19 - Unspecified kidney failure (ICD-10) ?I99.9 - Unspecified disorder of circulatory system (ICD-10) Myocardial infarction ?I21.9 - Acute myocardial infarction, unspecified (ICD-10) Social History (Updated 08/10/23 @ 21:02 by Adrianna Restrepo) Within the past year, how often did you have a drink containing alcohol: monthly or less Within the past year, how many standard drinks containing alcohol did you have on a typical day: 1 or 2 Within the past year, how often did you have six or more drinks on one occasion: never Total score: 0 Score interpretation: A score less than 4 is consistent with normal alcohol consumption. Smoking status: Heavy tobacco smoker Non-prescribed substance use: denies use Previous occupational history: retired Known occupational exposures/hazards: No Highest level of school completed/degree received: high school graduate Are you now , , , , never or living with a partner: In a typical week, how many times do you talk on the telephone with family, friends, or neighbors: twice per week How often do you get together with friends or relatives: never How often do you attend advent or druze services: never Do you belong to any clubs or organizations such as advent groups unions, fraternal or athletic groups, or school groups: no Total score: 0 Score interpretation: A score of less than or equal to 1 indicates the most socially isolated. Little interest or pleasure in doing things: not at all Feeling down, depressed, or hopeless: not at all Feel stressed/tense/nervous/anxious/difficulty sleeping: only a little Do you think of yourself as: straight/heterosexual Gender Identity: male Exam Narrative Exam Narrative: Vital signs and Nursing Notes reviewed: General: Awake, alert, oriented, mildly uncomfortable appearing adult male, he cannot stop moving his legs due to a history of restless leg syndrome, no respiratory distress HEENT: Normocephalic atraumatic, mucous membranes are moist and pink, eyes are clear, normal conjunctiva, vision is grossly intact, posterior pharynx is normal in appearance. Neck: Supple, no meningeal signs, no JVD Chest: Lungs are clear to auscultation with mild bibasilar rales, left greater than right, patient is speaking complete sentences and is not hypoxic with pulse ox of 95% CVS: Regular rate and rhythm with a pattern of bigeminy, pulses in the upper extremities are brisk and equal bilaterally ABD: Soft, nondistended, nontender, no rebound guarding or rigidity, bowel sounds are normal, no pulsatile masses appreciated, peritoneal dialysis catheter in the mid to lower abdominal wall Extremities: Moving all extremities, no lower extremity tenderness or swelling noted, negative Homans' sign, pulses are brisk and equal bilaterally Skin: Normal in appearance without rash,pallor, petechiae or purpura Neuro: No focal deficits Constitutional Vital Signs, click to edit/add: Last Vital Signs Temp 98.1 F 10/31/24 06:09 Pulse 74 10/31/24 05:30 Resp 21 H 10/31/24 05:30 BP 142/80 H 10/31/24 05:34 Pulse Ox 99 10/31/24 03:20 O2 Del Method Room Air 10/31/24 01:15 Course Vital Signs Vital signs: Vital Signs Pulse Rate 79 10/31/24 01:15 Respiratory Rate 16 10/31/24 01:15 Blood Pressure 206/70 H 10/31/24 01:15 Pulse Oximetry 95 10/31/24 01:15 Oxygen Delivery Method Room Air 10/31/24 01:15 Temperature 98.1 F 10/31/24 06:09 Pulse Rate 74 10/31/24 05:30 Respiratory Rate 21 H 10/31/24 05:30 Blood Pressure 142/80 H 10/31/24 05:34 Pulse Oximetry 99 10/31/24 03:20 Oxygen Delivery Method Room Air 10/31/24 01:15 MDM - Chest Pain MDM Narrative Medical decision making narrative: This 74-year-old male with a history of chronic kidney disease who is on peritoneal dialysis and states that he has stents all over but does not think he has any in his heart and sees Dr. Palomino, cardiology at [facility], presents for evaluation of left-sided chest pain and left-sided shoulder and jaw pain. The patient states that he thinks this may be coming from his neck because he has several slipped disks in his neck that referred pain into his shoulder. He denies any shortness of breath dizziness or diaphoresis. He does have restless leg syndrome which is somewhat debilitating for him. An EKG done upon arrival was a pattern of bigeminy at 80 bpm. An IV was placed and he was medicated with 1 sublingual nitroglycerin and 4 of morphine and 4 of Zofran. Cardiac workup was ordered. He has a normal white count and hemoglobin. Electrolytes are normal with an elevated BUN and creatinine in keeping with his history of kidney failure on peritoneal dialysis. His troponin is normal at 37.2. BNP is elevated at 5800. He does not appear to have any respiratory difficulty or fluid overload. I reviewed his chest x-ray which shows some mild peripheral vascular congestion but no florid pulmonary edema or pleural effusions. His initial blood pressure reading was elevated and has come down after pain control. On reevaluation he states he is not having any pain in his chest but still has some jaw pain and his restless legs are really bothering him and requests Dilaudid. He will be given 1 mg of IV Dilaudid while we repeat his EKG and troponin. Chest x-ray was reviewed by radiology and shows mild pulmonary vascular and interstitial prominence with no focal parenchymal opacities pleural effusion or pneumothorax. Repeat EKG is sinus rhythm at 70 bpm with a normal axis and a first-degree AV block with incomplete left bundle branch block but the bigeminy pattern has resolved. Delta troponin is 49.5, mildly increased from the initial trop but still within the normal range. Repeat troponin (#3) is slightly increased and is now 51.7 but he now is awake and complaining of jaw pain. Repeat EKG ordered. I will speak to the hospitalist about admission for him. He assures me that his daughter will bring his dialysis supplies if he is admitted. I spoke to the apartment house manager who assured me that he can be admitted here as long as family can bring in his dialysis supplies. Case was also discussed with the hospitalist who is comfortable keeping the patient for observation. Medical Records Data Attestation: I reviewed the patient's medical records. Lab Data Attestation: I reviewed the patient's lab results. Labs: Lab Results 10/31/24 10/31/24 10/31/24 Range/Units 01:15 03:55 05:20 WBC 6.7 (4.0-11.0) 10^3/uL RBC 3.66 L (4.70-6.10) 10^6/uL Hgb 11.8 L (14.0-18.0) g/dL Hct 36.4 L (42.0-54.0) % MCV 99.5 H (80.0-94.0) fL MCH 32.2 (25.9-34.0) pg MCHC 32.4 (29.9-35.2) g/dL RDW 13.8 (11.0-15.0) % Plt Count 114 L (150-450) 10^3/uL MPV 11.1 (9.5-13.5) fL Neut % (Auto) 81.2 H (43.0-75.0) % Lymph % (Auto) 6.9 L (20.5-60.0) % [place] % (Auto) 6.4 (1.7-12.0) % Eos % (Auto) 4.5 (0.9-7.0) % Baso % (Auto) 0.3 (0.2-2.0) % Neut # (Auto) 5.4 (1.4-6.5) 10^3/uL Lymph # (Auto) 0.5 L (1.2-3.8) 10^3/uL [place] # (Auto) 0.4 (0.3-0.8) 10^3/uL Eos # (Auto) 0.3 (0.0-0.7) 10^3/uL Baso # (Auto) 0.0 (0.0-0.1) 10^3/uL Abs Immat Gran (auto) 0.05 H (0.00-0.03) 10^3/uL Imm/Tot Granulo (auto) 0.7 H (0.0-0.5) % Sodium 142 (136-145) mmol/L Potassium 4.9 (3.5-5.1) mmol/L Chloride 105 (98-107) mmol/L Carbon Dioxide 30.0 (21.0-32.0) mmol/L Anion Gap 11.9 BUN 51.0 H (7.0-18.0) mg/dL Creatinine 3.60 H (0.70-1.30) mg/dL Est GFR ( Amer) 20 L (>=60 mL/min/1.73m^2) Est GFR (Non-Af Amer) 17 L (>=60 mL/min/1.73m^2) BUN/Creatinine Ratio 14.2 Glucose 116 H (74-106) mg/dL Calcium 9.6 (8.5-10.1) mg/dL Magnesium 2.4 (1.8-2.4) mg/dL Total Bilirubin 0.3 (0.2-1.0) mg/dL AST 29 (15-37) U/L ALT 35 (16-63) U/L Alkaline Phosphatase 77 (46-116) U/L Troponin I High Sens 37.2 49.5 51.7 (4.0-76.1) pg/mL NT-Pro-B Natriuret Pep 5812.0 H* (<=900.0) pg/mL Total Protein 5.9 L (6.4-8.2) g/dL Albumin 2.6 L (3.4-5.0) g/dL Globulin 3.3 g/dL Albumin/Globulin Ratio 0.8 ECG Data Attestation: I personally reviewed and interpreted this ECG as follows: (Sinus rhythm with frequent PVCs in a pattern of bigeminy with a shortened RR interval, first-degree AV block, incomplete left bundle branch block, nonspecific ST changes, no acute ST segment elevation) Heart Score History: Moderately Suspicious ECG: Sign. ST Depression Age: >65 years Risk Factors: >3 Risk Factors/ HX of CAD:2 Troponin: <Normal Limit Total Heart Score Recommendations & Risks:: 7 Discharge Plan Discharge Chief Complaint: Chest Pain Clinical Impression: Chest pain, Chronic renal disease Patient Disposition: Admitted as Observation Time of Disposition Decision: 06:32 Condition: Fair Prescriptions / Home Meds: No Action cilostazol 100 mg tablet 100 mg PO DAILY gabapentin 600 mg tablet 600 mg PO .COMPLEX Rx Instructions: 600 mg orally TAKE ONE-HALF TABLET BY MOUTH IN THE MORNING, ONE TABLET BY MOUTH AT NOON AND ONE TABLET BY MOUTH AT BEDTIME; ropinirole 3 mg tablet 3 mg PO TID sertraline 100 mg tablet 150 mg PO Q24H tamsulosin 0.4 mg capsule 0.4 mg PO BID insulin glargine [Lantus Solostar U-100 Insulin] 100 unit/mL (3 mL) insulin pen 10 unit SUBCUT BEDTIME insulin aspart U-100 [Novolog FlexPen U-100 Insulin] 100 unit/mL (3 mL) insulin pen 1 sliding scale dose SUBCUT ACHS Rx Instructions: 151-200=2 units 201-250=4 251-300=6 301-350=8 351-400=[address] >[address] Ford 0.75 mg/0.5 mL pen injector 0.75 mg subcut QWEEK lanthanum [Fosrenol] 500 mg tablet,chewable 1,500 mg PO TID Rx Instructions: administer with food; chew thoroughly before swallowing Re-Gen Liquid 1 ea PO .MON, WED, FRI multivitamin Tablet 1 tab PO DAILY cholecalciferol (vitamin D3) [Vitamin D3] 25 mcg (1,000 unit) tablet 1,000 unit PO DAILY trazodone 50 mg tablet 50 mg PO BEDTIME oxycodone-acetaminophen 7.5-325 mg tablet 1 tab PO Q12H PRN (Reason: pain) cyanocobalamin (vitamin B-12) [Vitamin B-12] 2,000 mcg tablet extended release 2,000 mcg PO DAILY amitriptyline 50 mg tablet 50 mg PO .QHS clopidogrel 75 mg tablet 75 mg PO DAILY cyclobenzaprine 10 mg tablet 10 mg PO BEDTIME furosemide 80 mg tablet 80 mg PO Q12H tizanidine 4 mg tablet 4 mg PO Q8H PRN (Reason: muscle spasticity) Patient Comments: 2 mg at 9 am, 2mg at 3 pm 4 mg at 9pm Repatha Syringe 140 mg/mL syringe 140 mg subcut .14 days aspirin 81 mg tablet,chewable 1 tab PO DAILY furosemide [Lasix] 80 mg tablet 80 mg PO BID gabapentin 100 mg capsule 600 mg PO Q8H cholecalciferol (vitamin D3) 1,250 mcg (50,000 unit) capsule 1,250 mcg PO DAILY calcitriol 1 mcg/mL solution 2 mcg PO DAILY ropinirole 1 mg tablet 3 mg PO TID Ozempic 0.25 mg or 0.5 mg (2 mg/3 mL) pen injector 0.5 mg subcut QWEEK Rx Instructions: On Fridays Probiotic 1 tab PO DAILY fiber vitamin daily 1 tab PO DAILY gentamicin 0.1 % cream 1 applic TOPICAL DAILY Rx Instructions: To dialysis site Anti-Diarrheal 1 tab PO TID hycosamine 1 tab PO TID Print Language: Albanian Referrals: Jono Robert MD [Primary Care Provider] - 1 week
[2024-10-31 01:29] LABS: Basophils Percent Auto 0.3 % (0.2-2.0); Eosinophils Absolute Auto 0.3 10^3/uL (0.0-0.7); Eosinophils Percent Auto 4.5 % (0.9-7.0); Hematocrit 36.4 % (42.0-54.0); Hemoglobin 11.8 g/dL (14.0-18.0); Immature Granulocytes Abs Auto 0.05 10^3/uL (0.00-0.03); Immature Granulocytes Pct Auto 0.7 % (0.0-0.5); Lymphocytes Absolute Auto 0.5 10^3/uL (1.2-3.8); Lymphocytes Percent Auto 6.9 % (20.5-60.0); Mean Corpuscular HGB Conc 32.4 g/dL (29.9-35.2); Mean Corpuscular Hemoglobin 32.2 pg (25.9-34.0); Mean Corpuscular Volume 99.5 fL (80.0-94.0); Mean Platelet Volume 11.1 fL (9.5-13.5); Monocytes Absolute Auto 0.4 10^3/uL (0.3-0.8); Monocytes Percent Auto 6.4 % (1.7-12.0); Neutrophils Absolute Auto 5.4 10^3/uL (1.4-6.5); Neutrophils Percent Auto 81.2 % (43.0-75.0); Platelet Count 114 10^3/uL (150-450); Red Blood Count 3.66 10^6/uL (4.70-6.10); Red Cell Distribution Width 13.8 % (11.0-15.0); White Blood Count 6.7 10^3/uL (4.0-11.0)
[2024-10-31] MEDS: MORPHINE SULFATE 4 MG/ML VIAL IV (01:30)
[2024-10-31] MEDS: ONDANSETRON PF 4 MG/2 ML VIAL IV (01:32)
[2024-10-31] MEDS: NITROGLYCERIN 0.4 MG BOTTLE SL (01:33)
[2024-10-31 01:41] LABS: Alanine Aminotransferase 35 U/L (16-63); Albumin Globulin Ratio 0.8; Albumin Level 2.6 g/dL (3.4-5.0); Alkaline Phosphatase 77 U/L (46-116); Anion Gap 11.9; Aspartate Amino Transferase 29 U/L (15-37); BUN Creatinine Ratio 14.2; Bilirubin Total 0.3 mg/dL (0.2-1.0); Calcium 9.6 mg/dL (8.5-10.1); Chloride 105 mmol/L (98-107); Estimated GFR (African America 20 (>=60 mL/min/1.73m^2); Estimated GFR (Non-African Ame 17 (>=60 mL/min/1.73m^2); Globulin 3.3 g/dL; Glucose 116 mg/dL (74-106); Magnesium 2.4 mg/dL (1.8-2.4); Potassium 4.9 mmol/L (3.5-5.1); Sodium 142 mmol/L (136-145); Total Protein 5.9 g/dL (6.4-8.2)
[2024-10-31 01:49] LABS: Troponin I High Sensitivity 37.2 pg/mL (4.0-76.1)
--- NOTE | 2024-10-31 01:55 | PC.NURSE ---
Shana animal laboratory helper called with a critical BNP=5,[phone]. Dr Reddy and this patient nurse informed of this
--- NOTE | 2024-10-31 02:11 | PC.NURSE ---
Pt does his own peritoneal dialysis at home. Last done last night. Peritoneal cath is located in the LLQ. Site is free from redness and drainage.
--- NOTE | 2024-10-31 02:32 | ECG_ITS ---
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 Measurements Intervals [place] Rate: 71 P: 76 DC: 216 QRS: 22 QRSD: 110 T: 37 QT: 374 QTc: 396 Interpretive Statements 1100 Sinus rhythm 2231 First degree AV block [address] depression [address] & Twave abnormality 9150 abnormal ECG Compared to ECG 10/31/2024 01:17:41 No significant changes Electronically Signed On 10-31-2024 20:23:53 EDT by PERRI FERREIRA M.D.
[2024-10-31] MEDS: HYDROMORPHONE HCL 1 MG/ML CARTRIDGE IV (02:58)
[2024-10-31 04:18] LABS: Troponin I High Sensitivity 49.5 pg/mL (4.0-76.1)
[2024-10-31 05:44] LABS: Troponin I High Sensitivity 51.7 pg/mL (4.0-76.1)
[2024-10-31] MEDS: HYDROCODONE/ACET 5-325 MG TABLET 1 TAB PO (06:27)
--- NOTE | 2024-10-31 06:57 | PC.NURSE ---
Report called to Pt to go up after med/surg gets report for the day.
--- NOTE | 2024-10-31 08:33 | CA_ITS ---
Patient Name Site Name CHARLOTTE DONAHUE [facility] Account No Medical Record Number Age Sex Date Time [id number] [facility]:[id number] M 10/31/2024 11:46 At the Request Of Goyo Lazo ECHOCARDIOGRAM REPORT PROCEDURE: CA ECHO DOPPLER COMPLETE INDICATIONS: Dyspnea, chest pain, h/o TX, COPD, hypertension, diabetes, dialysis COMPARISON: None. DESCRIPTION: COMPLETE ECHOCARDIOGRAM Real-time transthoracic echocardiography with 2D, M-mode, spectral and color flow Doppler performed. QUALITY: Technical quality was good. LEFT VENTRICLE: Normal chamber size. Mild to moderate concentric left ventricle hypertrophy. LV EF: Lower limits of normal left ventricular ejection fraction, (50-55%). Mild inferoapical segment hypokinesis. DIASTOLIC: Grade II diastolic dysfunction. ATRIAL SEPTUM: Visually appears intact. LEFT ATRIUM: Mild dilatation. RIGHT ATRIUM: Normal chamber size. RIGHT VENTRICLE: Normal chamber size. Normal right ventricular systolic function. TRICUSPID VALVE: Normal mobility and thickness. No stenosis with trivial regurgitation. No evidence of pulmonary hypertension.RVSP 31 mmHg MITRAL VALVE: Normal mobility and thickness. No evidence of mitral valve stenosis. There is no mitral annular calcification. Trace mitral regurgitation. AORTIC VALVE: Normal trileaflet appearance. Mildly calcified aortic valve. Normal leaflet mobility. No evidence of aortic valve stenosis. No aortic regurgitation. AORTIC ROOT: Normal diameter and appearance. PULMONIC VALVE: Normal thickness and mobility. No stenosis. Trivial regurgitation. PERICARDIUM: No evidence of pericardial effusion. IVC: IVC is dilated (2.6 cm), does not fully collapse. PLEURA: CONCLUSION: Mild to moderate concentric left ventricle hypertrophy Lower limit of normal left ventricular systolic function, mild inferior apical segment hypokinesis, ejection fraction 50 to 55% Grade 2 diastolic dysfunction Normal right ventricle size and systolic function No evidence of pulmonary hypertension Mildly dilated left atrium Dilated IVC with reduced systolic collapse consistent with elevated right atrial pressure 15 mmHg No significant valvular abnormalities Adult Echocardiography Procedure Report Left Ventricle LVEDD (3.7 - 5.6 cm): 4.74 cm LVESD (2.2 - 4.0 cm): 3.36 cm LVIVS thickness (0.6 - 1.2 cm): 1.36 cm LVPW thickness (0.5 - 1.0 cm): 1.09 cm e': 0.05 m/s E - e': 23.46 LVOT Max Gradient: 2.11 mm[Hg] LVOT Area (cm2): 0.73 m/s Peak Velocity (LVOT): 0.73 m/s Mean Velocity (LVOT): 0.51 m/s LVOT Diameter 2.40 cm Left Atrium LA Volume Index (2D A2C): 36.17 ml/m2 Left Atrium Systolic Dimension: 3.95 cm Mitral Valve MV E to A Ratio: 0.83 Mitral Valve A-Wave Peak Velocity: 1.48 m/s Mitral Valve E-Wave Peak Velocity: 1.23 m/s Right Ventricle Aorta AO Root Diam: 3.92 cm Aortic Valve AoV Area (Peak Ty): 2.67 cm2, 2.67 cm2 AoV Area (VTI): 2.55 cm2, 2.55 cm2 Peak Velocity(Antegrade Flow): 1.23 m/s Peak Gradient(Antegrade Flow): 6.06 mm[Hg] Mean Velocity(Antegrade Flow): 0.90 m/s Mean Gradient(Antegrade Flow): 3.58 mm[Hg] Velocity Time Integral: 34.48 cm Tricuspid Valve Peak Velocity (Regurgitant Flow): 1.99 m/s Pulmonic Valve Mean Gradient: 2.01 mm[Hg] Mean Velocity: 0.66 m/s Peak Velocity: 1.03 m/s, 0.99 m/s Peak Gradient: 3.92 mm[Hg], 4.27 mm[Hg] Right Atrium Right Atrium Systolic Pressure: 40.30 ml, 40.30 ml Dictated by: Meagan Hills MD on 10/31/2024 at 18:41 Approved by: Meagan Hills MD on 10/31/2024 at 18:48
--- NOTE | 2024-10-31 08:50 | P.HP_ITS ---
HPI H&P: HPI History of Present Illness Chief complaint: CHEST PAIN Narrative: Patient last night had an episode of pain down left arm is not uncommon for him because he has cervical radiculopathy with chest pain that radiated into his chest, at the time he had no shortness of breath lasted for quite a few minutes and then resolved, this morning woke up with pain radiating up into his jaw which was new for him, no associated symptoms such as shortness of breath, nausea, diaphoresis, but with symptoms presented emergency room currently when I saw patient up in the medical surgical floor he is currently pain-free, does have a history of acute myocardial infarction but no stenting this is approximately 3 to 4 years ago Opioid HPI Opioid Management Most Recent Pain and Opioid Data: Last Pain Scale 6 10/31/24 06:27 10/31/24 Last MAR Pain Assessment 10/31/24 06:27 Review of Systems ROS Status of ROS 10 or more systems reviewed and unremark able except as noted in history and below [facility] Medical History (Updated 10/31/24 @ 06:32 by Kala Reddy MD) DNR (do not resuscitate) ?Z66 - Do not resuscitate (ICD-10) Acute CVA (cerebrovascular accident) ?I63.9 - Cerebral infarction, unspecified (ICD-10) Orthostatic hypotension ?I95.1 - Orthostatic hypotension (ICD-10) Rhabdomyolysis ?M62.82 - Rhabdomyolysis (ICD-10) Skin cancer ?C44.90 - Unspecified malignant neoplasm of skin, unspecified (ICD-10) Emphysema/COPD ?J43.9 - Emphysema, unspecified (ICD-10) Hypertension ?I10 - Essential (primary) hypertension (ICD-10) Diabetes 1.5, 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 - Other specified diabetes mellitus without complications (ICD-10) T9 vertebral fracture ?S22.079A - Unspecified fracture of T9-T10 vertebra, initial encounter for closed fracture (ICD-10) Diarrhea ?R19.7 - Diarrhea, unspecified (ICD-10) Fall ?W19.XXXA - Unspecified fall, initial encounter (ICD-10) CVA (cerebral vascular accident) ?I63.9 - Cerebral infarction, unspecified (ICD-10) Peritoneal dialysis catheter in place ?Z99.2 - Dependence on renal dialysis (ICD-10) 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 ?N19 - Unspecified kidney failure (ICD-10) ?I99.9 - Unspecified disorder of circulatory system (ICD-10) Myocardial infarction ?I21.9 - Acute myocardial infarction, unspecified (ICD-10) Social History (Updated 08/10/23 @ 21:02 by Adrianna Restrepo) Within the past year, how often did you have a drink containing alcohol: monthly or less Within the past year, how many standard drinks containing alcohol did you have on a typical day: 1 or 2 Within the past year, how often did you have six or more drinks on one occasion: never Total score: 0 Score interpretation: A score less than 4 is consistent with normal alcohol consumption. Smoking status: Heavy tobacco smoker Non-prescribed substance use: denies use Previous occupational history: retired Known occupational exposures/hazards: No Highest level of school completed/degree received: high school graduate Are you now , , , , never or living with a partner: In a typical week, how many times do you talk on the telephone with family, friends, or neighbors: twice per week How often do you get together with friends or relatives: never How often do you attend latter day or hinduism services: never Do you belong to any clubs or organizations such as latter day groups unions, fraternal or athletic groups, or school groups: no Total score: 0 Score interpretation: A score of less than or equal to 1 indicates the most socially isolated. Little interest or pleasure in doing things: not at all Feeling down, depressed, or hopeless: not at all Feel stressed/tense/nervous/anxious/difficulty sleeping: only a little Do you think of yourself as: straight/heterosexual Gender Identity: male Meds Home Medications and Allergies Home Medications ?Medication ?Instructions ?Recorded ?Confirmed ?Type cilostazol 100 mg tablet 100 mg PO DAILY 08/10/23 03/09/24 History cyanocobalamin (vitamin B-12) 2,000 mcg PO DAILY 08/10/23 10/31/24 History 2,000 mcg tablet,extended release (Vitamin B-12 ER) gabapentin 600 mg tablet 600 mg PO .COMPLEX 08/10/23 10/31/24 History insulin aspart U-100 100 unit/mL 1 sliding scale dose subcut ACHS 08/10/23 10/31/24 History (3 mL) subcutaneous pen (Novolog FlexPen U-100 Insulin aspart) insulin glargine 100 unit/mL (3 10 unit subcut BEDTIME 08/10/23 10/31/24 History mL) subcutaneous pen (Lantus Solostar U-100 Insulin) lanthanum 500 mg chewable tablet 500 mg PO TIDWM 08/10/23 10/31/24 History (Fosrenol) multivitamin 1 tab PO DAILY 08/10/23 10/31/24 History oxycodone-acetaminophen 7.5 mg-325 1 tab PO Q12H PRN pain 08/10/23 10/31/24 History mg tablet ropinirole 3 mg tablet 3 mg PO TID 08/10/23 10/31/24 History sertraline 100 mg tablet 150 mg PO Q24H 08/10/23 10/31/24 History tamsulosin 0.4 mg capsule 0.4 mg PO BID 08/10/23 10/31/24 History clopidogrel 75 mg tablet 75 mg PO DAILY 03/09/24 10/31/24 History tizanidine 4 mg tablet 4 mg PO Q8H PRN muscle spasticity 03/09/24 10/31/24 History Anti-Diarrheal 1 tab PO TID 10/31/24 10/31/24 History Probiotic 1 tab PO DAILY 10/31/24 10/31/24 History aspirin 81 mg chewable tablet 1 tab PO DAILY 10/31/24 10/31/24 History calcitriol 1 mcg/mL oral solution 2 mcg PO DAILY 10/31/24 History cholecalciferol (vitamin D3) 1,250 1,250 mcg PO Q30D 10/31/24 10/31/24 History mcg (50,000 unit) capsule cholecalciferol (vitamin D3) 125 125 mcg PO DAILY 10/31/24 10/31/24 History mcg (5,000 unit) tablet dicyclomine 20 mg tablet 20 mg PO TID 10/31/24 10/31/24 History evolocumab 140 mg/mL subcutaneous 140 mg subcut .14 days 10/31/24 10/31/24 History syringe (Repatha Syringe) fiber vitamin daily 1 tab PO DAILY 10/31/24 10/31/24 History furosemide 80 mg tablet (Lasix) 80 mg PO BID 10/31/24 10/31/24 History hycosamine 1 tab PO TID 10/31/24 10/31/24 History lanthanum 1,000 mg chewable tablet 1,000 mg PO TIDWM 10/31/24 10/31/24 History lidocaine 5 % topical patch 1 patch topical Q24H 10/31/24 10/31/24 History semaglutide 0.25 mg or 0.5 mg (2 0.5 mg subcut QWEEK 10/31/24 10/31/24 History mg/3 mL) subcutaneous pen injector (Ozempic) Allergies Allergy/AdvReac Type Severity Reaction Status Date / Time Penicillins Allergy Severe Rash Verified 10/31/24 01:21 Exam Constitutional Vital Signs, click to edit/add: Last Vital Signs Temp 98.1 F 10/31/24 06:09 Pulse 82 10/31/24 07:15 Resp 16 10/31/24 07:15 BP 141/55 10/31/24 07:15 Pulse Ox 90 L 10/31/24 07:15 O2 Del Method Room Air 10/31/24 07:15 Documenting provider has reviewed patient's vital signs: yes Common normals: no apparent distress Chest Common normals: inspection of chest normal Respiratory Common normals: normal respiratory effort, no retractions and clear to auscultation bilaterally Cardio Common normals: regular rate, regular rhythm and no murmurs Extremity Common normals: abnormal to inspection (1+ edema more prominent on the left, chronic) Results Labs Labs: Short CBC 10/31/24 Range/Units 01:15 WBC 6.7 (4.0-11.0) 10^3/uL Hgb 11.8 L (14.0-18.0) g/dL Hct 36.4 L (42.0-54.0) % Plt Count 114 L (150-450) 10^3/uL BMP 10/31/24 01:15 Sodium 142 Potassium 4.9 Chloride 105 Carbon Dioxide 30.0 BUN 51.0 H Creatinine 3.60 H Glucose 116 H Calcium 9.6 Liver Function 10/31/24 Range/Units 01:15 Total Bilirubin 0.3 (0.2-1.0) mg/dL AST 29 (15-37) U/L ALT 35 (16-63) U/L Alkaline Phosphatase 77 (46-116) U/L Albumin 2.6 L (3.4-5.0) g/dL Assessment and Plan Assessment and Plan (1) Chronic renal disease: (2) Chest pain: (3) Intracranial bleeding: (4) Diabetes 1.5, managed as type 1: (5) Peritoneal dialysis catheter in place: Plan Admission findings: Uncontrolled hypertension, mild hypoxia at 90% on room air, normal troponins, normal EKG but with pain radiating up into the jaw patient admitted to observation Unstable angina-with symptoms last night and again this morning, pain rating up to the jaw currently resolved, checking echocardiogram, start Imdur and beta- salvador, consult to cardiology, patient's preference would be for being able to be discharged with continued workup as an outpatient, told him recommendations may be based on results of echo Insulin-dependent diabetes mellitus-use home insulin sliding scale Chronic kidney disease stage V-on peritoneal dialysis, creatinine is in his baseline Elevated BNP-this is likely related to his chronic kidney disease he does have some peripheral edema but no change in that, lungs clear Iron deficiency anemia as well as anemia of chronic kidney disease-continue to monitor Thrombocytopenia-this is likely related to his chronic kidney disease-monitor Bigeminy in [id number] benefit from outpatient Holter Vitamin D deficiency-continue supplementation Irritable bowel-continue medications Diabetic peripheral neuropathy-continue with home medications Restless leg syndrome-continue with home medications Depression-continue with home medications BPH continue with home medications Cervical radiculopathy-continue with home medications Admission status: Patient with chest pain radiating up into her jaw, resolved currently, checking echo and consult to cardiology, medically necessary treatment likely to only span 1 midnight, observation status
[2024-10-31] MEDS: LIDOCAINE 5% PATCH 1 PATCH TOPICAL (10:53)
[2024-10-31] MEDS: DICYCLOMINE HCL 10 MG CAPSULE 20 MG PO ×2 (10:54→13:58)
[2024-10-31] MEDS: MULTIVITAMIN TABLET 1 TAB PO (10:54)
[2024-10-31] MEDS: TAMSULOSIN HCL 0.4 MG CAPSULE PO (10:54)
[2024-10-31] MEDS: FUROSEMIDE 40 MG TABLET 80 MG PO (10:55)
[2024-10-31] MEDS: METOPROLOL TARTRATE 25 MG TABLET PO (10:55)
[2024-10-31] MEDS: ISOSORBIDE MONONITRATE 30 MG TAB.ER.24H PO (10:55)
[2024-10-31] MEDS: CLOPIDOGREL BISULFATE 75 MG TABLET PO (10:55)
[2024-10-31] MEDS: SERTRALINE HCL 50 MG TABLET 150 MG PO (10:58)
[2024-10-31] MEDS: TIZANIDINE HCL 4 MG TABLET PO (11:10)
[2024-10-31] MEDS: GABAPENTIN 300 MG CAPSULE 600 MG PO (11:10)
[2024-10-31 11:18] LABS: Glucometer 200 mg/dL (74-106)
[2024-10-31] MEDS: INSULIN ASPART 300 UNIT/3 ML PEN SUBQ (12:40)
[2024-10-31] MEDS: ROPINIROLE HCL 1 MG TABLET 3 MG PO (13:58)
[2024-10-31 17:00] LABS: Glucometer 110 mg/dL (74-106)
--- NOTE | 2024-10-31 19:40 | P.DS_ITS ---
DS: Providers Provider Date of admission: 10/31/24 08:20 Primary care physician: Jono Robert MD Consults: 10/31/24 08:30 Consult to Pharmacy Routine Consulting Provider: Reason for consultation: Please [place] me when Med Rec is Updated Has provider been notified: No Occupational Therapy Eval and Treat Routine Reason for consultation: Only if needed for Rehab Has provider been notified: No Physical Therapy Eval and Treat Routine Reason for consultation: Eval and Treat Has provider been notified: No 10/31/24 10:48 Consult to Cardiology Routine Reason for consultation: angina Has provider been notified: No DS: Diagnosis Discharge Diagnosis (1) Chronic renal disease: (2) Chest pain: (3) Intracranial bleeding: (4) Diabetes 1.5, managed as type 1: (5) Peritoneal dialysis catheter in place: DS: Summary Hospital Course Hospital Course: Patient discussed with cardiology here who recommended transfer for heart cath, patient does not really want to do that and wants to follow-up with his cardiology up at [facility] I did discuss with the on- call physician and he agreed as long as he is stable EKG with no acute changes and no elevation in his troponin he agreed with the addition of the metoprolol and Imdur, maintain aspirin and Plavix and follow-up with cardiology as an outpatient Time Spent with Patient Time attestation: Total time spent providing and/or coordinating discharge services: Exam Constitutional Vital Signs, click to edit/add: Last Vital Signs Temp 97.8 F 10/31/24 15:56 Pulse 68 10/31/24 17:47 Resp 18 10/31/24 15:56 BP 162/68 H 10/31/24 15:56 Pulse Ox 94 L 10/31/24 15:56 O2 Del Method Room Air 10/31/24 15:56 DS: Data Data Completed and Pending Labs on day of discharge: Labs from last 24 hours 10/31/24 10/31/24 10/31/24 16:59 11:07 05:20 WBC RBC Hgb Hct MCV MCH MCHC RDW Plt Count MPV Neut % (Auto) Lymph % (Auto) Cavalier % (Auto) Eos % (Auto) Baso % (Auto) Neut # (Auto) Lymph # (Auto) [place]alier # (Auto) Eos # (Auto) Baso # (Auto) Abs Immat Gran (auto) Imm/Tot Granulo (auto) Sodium Potassium Chloride Carbon Dioxide Anion Gap BUN Creatinine Est GFR ( Amer) Est GFR (Non-Af Amer) BUN/Creatinine Ratio Glucose Calcium Magnesium Total Bilirubin AST ALT Alkaline Phosphatase Troponin I High Sens 51.7 NT-Pro-B Natriuret Pep Total Protein Albumin Globulin Albumin/Globulin Ratio POC Glucose 110 H 200 H 10/31/24 10/31/24 03:55 01:15 WBC 6.7 RBC 3.66 L Hgb 11.8 L Hct 36.4 L MCV 99.5 H MCH 32.2 MCHC 32.4 RDW 13.8 Plt Count 114 L MPV 11.1 Neut % (Auto) 81.2 H Lymph % (Auto) 6.9 L Cavalier % (Auto) 6.4 Eos % (Auto) 4.5 Baso % (Auto) 0.3 Neut # (Auto) 5.4 Lymph # (Auto) 0.5 L [place]alier # (Auto) 0.4 Eos # (Auto) 0.3 Baso # (Auto) 0.0 Abs Immat Gran (auto) 0.05 H Imm/Tot Granulo (auto) 0.7 H Sodium 142 Potassium 4.9 Chloride 105 Carbon Dioxide 30.0 Anion Gap 11.9 BUN 51.0 H Creatinine 3.60 H Est GFR ( Amer) 20 L Est GFR (Non-Af Amer) 17 L BUN/Creatinine Ratio 14.2 Glucose 116 H Calcium 9.6 Magnesium 2.4 Total Bilirubin 0.3 AST 29 ALT 35 Alkaline Phosphatase 77 Troponin I High Sens 49.5 37.2 NT-Pro-B Natriuret Pep 5812.0 H* Total Protein 5.9 L Albumin 2.6 L Globulin 3.3 Albumin/Globulin Ratio 0.8 POC Glucose Discharge Plan Discharge Disposition: Home, Self-Care Condition: Fair Discharge Medications: New isosorbide mononitrate 30 mg Tablet Extended Release 24 Hr 30 mg PO QD Qty: 30 11RF metoprolol tartrate 25 mg Tablet 25 mg PO BID Qty: 60 11RF Continued cilostazol 100 mg tablet 100 mg PO DAILY gabapentin 600 mg tablet 600 mg PO .COMPLEX Rx Instructions: 600 mg orally TAKE ONE-HALF TABLET BY MOUTH IN THE MORNING, ONE TABLET BY MOUTH AT NOON AND ONE TABLET BY MOUTH AT BEDTIME; ropinirole 3 mg tablet 3 mg PO TID sertraline 100 mg tablet 150 mg PO Q24H tamsulosin 0.4 mg capsule 0.4 mg PO BID insulin glargine [Lantus Solostar U-100 Insulin] 100 unit/mL (3 mL) insulin pen 10 unit SUBCUT BEDTIME insulin aspart U-100 [Novolog FlexPen U-100 Insulin] 100 unit/mL (3 mL) insulin pen 1 sliding scale dose SUBCUT ACHS Rx Instructions: 151-200=2 units 201-250=4 251-300=6 301-350=8 351-400=10 >400 call lanthanum [Fosrenol] 500 mg tablet,chewable 500 mg PO TIDWM Rx Instructions: administer with food; chew thoroughly before swallowing multivitamin Tablet 1 tab PO DAILY oxycodone-acetaminophen 7.5-325 mg tablet 1 tab PO Q12H PRN (Reason: pain) cyanocobalamin (vitamin B-12) [Vitamin B-12] 2,000 mcg tablet extended release 2,000 mcg PO DAILY clopidogrel 75 mg tablet 75 mg PO DAILY tizanidine 4 mg tablet 4 mg PO Q8H PRN (Reason: muscle spasticity) Patient Comments: 2 mg at 9 am, 2mg at 3 pm 4 mg at 9pm Repatha Syringe 140 mg/mL syringe 140 mg subcut .14 days aspirin 81 mg tablet,chewable 1 tab PO DAILY furosemide [Lasix] 80 mg tablet 80 mg PO BID cholecalciferol (vitamin D3) 1,250 mcg (50,000 unit) capsule 1,250 mcg PO Q30D calcitriol 1 mcg/mL solution 2 mcg PO DAILY Ozempic 0.25 mg or 0.5 mg (2 mg/3 mL) pen injector 0.5 mg subcut QWEEK Rx Instructions: On Fridays Probiotic 1 tab PO DAILY fiber vitamin daily 1 tab PO DAILY Anti-Diarrheal 1 tab PO TID hycosamine 1 tab PO TID dicyclomine 20 mg tablet 20 mg PO TID lidocaine 5 % adhesive patch,medicated 1 patch topical Q24H Rx Instructions: APPLY 1 PATCH TO LEFT SHOULDER DAILY FOR 12 HOURS ON THEN 12 HOURS OFF lanthanum 1,000 mg tablet,chewable 1,000 mg PO TIDWM cholecalciferol (vitamin D3) 125 mcg (5,000 unit) tablet 125 mcg PO DAILY Print Language: Setswana Forms: Portal Instructions
--- NOTE | 2024-10-31 19:46 | P.CACN_ITS ---
History of Present Illness History of Present Illness Consult date: 10/31/24 Requesting physician: Goyo Lazo Chief complaint: CHEST PAIN Narrative: Patient is 74-year-old male with prior history of coronary artery disease, cardiac catheterization 09/30/2019 showed totally occluded RCA with [id number] collaterals and diffusely diseased diagonal and OM branches treated medically, PAD of the lower extremities with stent placement, hypertension, hyperlipidemia, diabetes mellitus, end-stage renal disease on peritoneal dialysis, sleep apnea and COPD. Patient presented with chest pain. He states lately when he does exertion more than ordinary exertion he has left upper arm discomfort radiating to the front of the left chest and to the left side of his neck and to the left jaw. Usually he stops what he is doing and symptoms subside within about 5 to 10 minutes. He does not have sublingual nitro to take. He was not sure if his symptoms are cardiac or if related to cervical spine arthritis. symptoms have been occurring frequently lately with exertion and also with emotional stress. He had them 4 times over the last couple days. He admits mild associated shortness of breath. In general he he denies exertional dyspnea or orthopnea or paroxysmal nocturnal dyspnea or dizziness or palpitations. He reports left lower extremity edema which is chronic. His EKG showed nonspecific ST changes. High-sensitivity troponin has been normal x 3. BNP was elevated in the setting of end-stage renal disease. Echo also was performed today which showed low normal left ventricle systolic function with ejection fraction of 50 to 55% with inferior apical hypokinesis and no significant valvular abnormalities. Review of Systems ROS Narrative All systems were reviewed and they were negative except for the positive findings noted above in the history [facility] Medical History (Updated 10/31/24 @ 19:59 by Meagan Hills MD) DNR (do not resuscitate) ?Z66 - Do not resuscitate (ICD-10) Acute CVA (cerebrovascular accident) ?I63.9 - Cerebral infarction, unspecified (ICD-10) Orthostatic hypotension ?I95.1 - Orthostatic hypotension (ICD-10) Rhabdomyolysis ?M62.82 - Rhabdomyolysis (ICD-10) Skin cancer ?C44.90 - Unspecified malignant neoplasm of skin, unspecified (ICD-10) Emphysema/COPD ?J43.9 - Emphysema, unspecified (ICD-10) Hypertension ?I10 - Essential (primary) hypertension (ICD-10) Diabetes 1.5, 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 - Other specified diabetes mellitus without complications (ICD-10) T9 vertebral fracture ?S22.079A - Unspecified fracture of T9-T10 vertebra, initial encounter for closed fracture (ICD-10) Diarrhea ?R19.7 - Diarrhea, unspecified (ICD-10) Fall ?W19.XXXA - Unspecified fall, initial encounter (ICD-10) CVA (cerebral vascular accident) ?I63.9 - Cerebral infarction, unspecified (ICD-10) Peritoneal dialysis catheter in place ?Z99.2 - Dependence on renal dialysis (ICD-10) 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 ?N19 - Unspecified kidney failure (ICD-10) ?I99.9 - Unspecified disorder of circulatory system (ICD-10) Myocardial infarction ?I21.9 - Acute myocardial infarction, unspecified (ICD-10) Family History (Updated 10/31/24 @ 09:40 by Mary Maurice) Brother Family history of cancer Family history of myocardial infarction Family history of stroke Sister Family history of diabetes mellitus Social History (Updated 10/31/24 @ 09:41 by Mary Maurice) Within the past year, how often did you have a drink containing alcohol: monthly or less Within the past year, how many standard drinks containing alcohol did you have on a typical day: 1 or 2 Within the past year, how often did you have six or more drinks on one occasion: never Total score: 0 Score interpretation: A score less than 4 is consistent with normal alcohol consumption. 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 Known occupational exposures/hazards: No Highest level of school completed/degree received: high school graduate Do you want help with school or training: No Are you now , , , , never or living with a partner: In a typical week, how many times do you talk on the telephone with family, friends, or neighbors: twice per week How often do you get together with friends or relatives: never How often do you attend congregational or latter-day services: never Do you belong to any clubs or organizations such as congregational groups unions, fraternal or athletic groups, or school groups: no Total score: 0 Score interpretation: A score of less than or equal to 1 indicates the most socially isolated. Little interest or pleasure in doing things: not at all Feeling down, depressed, or hopeless: not at all Feel stressed/tense/nervous/anxious/difficulty sleeping: only a little Due to disability, difficulty making decisions: No Do you think of yourself as: straight/heterosexual Gender Identity: male Meds Home Medications and Allergies Home Medications ?Medication ?Instructions ?Recorded ?Confirmed ?Type cilostazol 100 mg tablet 100 mg PO DAILY 08/10/23 03/09/24 History cyanocobalamin (vitamin B-12) 2,000 mcg PO DAILY 08/10/23 10/31/24 History 2,000 mcg tablet,extended release (Vitamin B-12 ER) gabapentin 600 mg tablet 600 mg PO .COMPLEX 08/10/23 10/31/24 History insulin aspart U-100 100 unit/mL 1 sliding scale dose subcut ACHS 08/10/23 10/31/24 History (3 mL) subcutaneous pen (Novolog FlexPen U-100 Insulin aspart) insulin glargine 100 unit/mL (3 10 unit subcut BEDTIME 08/10/23 10/31/24 History mL) subcutaneous pen (Lantus Solostar U-100 Insulin) lanthanum 500 mg chewable tablet 500 mg PO TIDWM 08/10/23 10/31/24 History (Fosrenol) multivitamin 1 tab PO DAILY 08/10/23 10/31/24 History oxycodone-acetaminophen 7.5 mg-325 1 tab PO Q12H PRN pain 08/10/23 10/31/24 History mg tablet ropinirole 3 mg tablet 3 mg PO TID 08/10/23 10/31/24 History sertraline 100 mg tablet 150 mg PO Q24H 08/10/23 10/31/24 History tamsulosin 0.4 mg capsule 0.4 mg PO BID 08/10/23 10/31/24 History clopidogrel 75 mg tablet 75 mg PO DAILY 03/09/24 10/31/24 History tizanidine 4 mg tablet 4 mg PO Q8H PRN muscle spasticity 03/09/24 10/31/24 History Anti-Diarrheal 1 tab PO TID 10/31/24 10/31/24 History Probiotic 1 tab PO DAILY 10/31/24 10/31/24 History aspirin 81 mg chewable tablet 1 tab PO DAILY 10/31/24 10/31/24 History calcitriol 1 mcg/mL oral solution 2 mcg PO DAILY 10/31/24 History cholecalciferol (vitamin D3) 1,250 1,250 mcg PO Q30D 10/31/24 10/31/24 History mcg (50,000 unit) capsule cholecalciferol (vitamin D3) 125 125 mcg PO DAILY 10/31/24 10/31/24 History mcg (5,000 unit) tablet dicyclomine 20 mg tablet 20 mg PO TID 10/31/24 10/31/24 History evolocumab 140 mg/mL subcutaneous 140 mg subcut .14 days 10/31/24 10/31/24 History syringe (Repatha Syringe) fiber vitamin daily 1 tab PO DAILY 10/31/24 10/31/24 History furosemide 80 mg tablet (Lasix) 80 mg PO BID 10/31/24 10/31/24 History hycosamine 1 tab PO TID 10/31/24 10/31/24 History isosorbide mononitrate 30 mg 30 mg PO QD #30 tabs 10/31/24 Rx tablet,extended release 24 hr lanthanum 1,000 mg chewable tablet 1,000 mg PO TIDWM 10/31/24 10/31/24 History lidocaine 5 % topical patch 1 patch topical Q24H 10/31/24 10/31/24 History metoprolol tartrate 25 mg tablet 25 mg PO BID #60 tabs 10/31/24 Rx semaglutide 0.25 mg or 0.5 mg (2 0.5 mg subcut QWEEK 10/31/24 10/31/24 History mg/3 mL) subcutaneous pen injector (Ozempic) Allergies Allergy/AdvReac Type Severity Reaction Status Date / Time Penicillins Allergy Severe Rash Verified 10/31/24 01:21 Exam Narrative Exam Narrative: Alert, oriented, not in apparent distress HEENT within normal limits Neck supple, normal range of motion, no carotid bruit, jugular venous pressure is normal Lungs generalized reduced breath sounds however no rales or rhonchi or wheezes Abdomen soft benign, no organomegaly or tenderness Cardiovascular system regular rate and rhythm, normal S1 and S2, no gallop murmur or click next Extremities left lower extremity edema, skin discoloration of both lower extr emities Neurologic examination grossly normal Constitutional Vital Signs, click to edit/add: Last Vital Signs Temp 97.8 F 10/31/24 15:56 Pulse 68 10/31/24 17:47 Resp 18 10/31/24 15:56 BP 162/68 H 10/31/24 15:56 Pulse Ox 94 L 10/31/24 15:56 O2 Del Method Room Air 10/31/24 15:56 Results Labs and Meds Lab results: Cardiac Enzymes 10/31/24 Range/Units 01:15 AST 29 (15-37) U/L CBC 10/31/24 Range/Units 01:15 WBC 6.7 (4.0-11.0) 10^3/uL RBC 3.66 L (4.70-6.10) 10^6/uL Hgb 11.8 L (14.0-18.0) g/dL Hct 36.4 L (42.0-54.0) % Plt Count 114 L (150-450) 10^3/uL Neut # (Auto) 5.4 (1.4-6.5) 10^3/uL Lymph # (Auto) 0.5 L (1.2-3.8) 10^3/uL Hughes # (Auto) 0.4 (0.3-0.8) 10^3/uL Eos # (Auto) 0.3 (0.0-0.7) 10^3/uL Baso # (Auto) 0.0 (0.0-0.1) 10^3/uL Comprehensive Metabolic Panel 10/31/24 Range/Units 01:15 Sodium 142 (136-145) mmol/L Potassium 4.9 (3.5-5.1) mmol/L Chloride 105 (98-107) mmol/L Carbon Dioxide 30.0 (21.0-32.0) mmol/L BUN 51.0 H (7.0-18.0) mg/dL Creatinine 3.60 H (0.70-1.30) mg/dL Glucose 116 H (74-106) mg/dL Calcium 9.6 (8.5-10.1) mg/dL AST 29 (15-37) U/L ALT 35 (16-63) U/L Alkaline Phosphatase 77 (46-116) U/L Total Protein 5.9 L (6.4-8.2) g/dL Albumin 2.6 L (3.4-5.0) g/dL Intake and Output 10/31/24 10/31/24 10/31/24 07:59 15:59 23:59 Intake Total 790 / 790 Balance 790 / 790 Intake: Oral 790 / 790 Other: # Voids 1 Weight 79.832 kg 79.9 kg Patient Weight 11/01/24 07:59 Weight 79.9 kg EKG on admission showed normal sinus rhythm with PACs and nonspecific ST changes Second EKG showed sinus rhythm and nonspecific ST changes Echo today 10/31/2024 Mild to moderate concentric left ventricular hypertrophy Low limit of normal left ventricle systolic function with ejection fraction 50 to 55% and inferoapical segment hypokinesis Grade 2 diastolic dysfunction Normal right ventricle size and systolic function No evidence of pulmonary hypertension Dilated IVC with reduced respiratory collapse consistent with elevated right atrial pressure 15 mmHg Mildly dilated left atrium No significant valvular abnormalities Assessment and Plan Assessment and Plan (1) Chest pain: Assessment and Plan: Suggestive of unstable angina. High-sensitivity troponin has been negative. The echo did not show new wall motion abnormalities and the ejection fraction is at lower limit of normal 50 to 55% (2) Coronary artery disease: Assessment and Plan: Patient had cardiac catheterization in September 2019 which showed total occluded RCA with [id number] collateral and diffusely diseased diagonal branch and OM branch (3) Peripheral arterial disease: (4) Hypertension: (5) Hyperlipidemia: Assessment and Plan: On Repatha (6) Diabetes 1.5, managed as type 1: (7) Chronic renal disease: (8) Peritoneal dialysis catheter in place: (9) Emphysema/COPD: Plan Continue current medications including aspirin, Plavix, metoprolol, Imdur, and Repatha I think given the frequency of the patient's symptoms he needs cardiac catheterization to evaluate for progression of coronary artery disease. The procedure was discussed with him including risks and benefits and he is agreeable. I offered to transfer him to [facility] however the patient would like to go to [facility]. I discussed that with Dr. Lazo who will take care of the transfer. It is important to continue with aggressive risk factor modifications including adequate control of hyperlipidemia with a goal LDL cholesterol 70 or below and adequate control of hypertension and hyperlipidemia.
--- NOTE | 2024-11-03 14:59 | CM.DCFOLLOWU ---
Pt returned to ER today.
== END 2024-10-31 20:44 | disposition home or self-care (01) ==
LOC: ER 06:32 → MS 08:22
PROVIDERS: Admitting Provider Family Medicine; Emergency Provider Emergency Medicine; PCP Family Medicine; Visit Provider Family Medicine
DX: R07.9 Chest pain, unspecified (principal); I25.110 Atherosclerotic heart disease of native coronary artery with unstable angina pectoris; Z99.2 Dependence on renal dialysis; I73.9 Peripheral vascular disease, unspecified; Z66 Do not resuscitate; F17.200 Nicotine dependence, unspecified, uncomplicated; G25.81 Restless legs syndrome; R68.84 Jaw pain; M54.12 Radiculopathy, cervical region; I25.2 Old myocardial infarction; E13.51 Other specified diabetes mellitus with diabetic peripheral angiopathy without gangrene; Z79.85 Long-term (current) use of injectable non-insulin antidiabetic drugs; Z79.4 Long term (current) use of insulin; E13.22 Other specified diabetes mellitus with diabetic chronic kidney disease; I12.0 Hypertensive chronic kidney disease with stage 5 chronic kidney disease or end stage renal disease; R09.02 Hypoxemia; R79.89 Other specified abnormal findings of blood chemistry; D50.9 Iron deficiency anemia, unspecified; D63.1 Anemia in chronic kidney disease; E55.9 Vitamin D deficiency, unspecified; K58.9 Irritable bowel syndrome, unspecified; E13.42 Other specified diabetes mellitus with diabetic polyneuropathy; F32.A Depression, unspecified; N40.0 Benign prostatic hyperplasia without lower urinary tract symptoms; Z86.73 Personal history of transient ischemic attack (TIA), and cerebral infarction without residual deficits; E78.5 Hyperlipidemia, unspecified; G47.30 Sleep apnea, unspecified; R06.02 Shortness of breath; J43.9 Emphysema, unspecified; N18.5 Chronic kidney disease, stage 5
CPT/HCPCS: 36415; 71045; 80053; 82948; 83735; 83880; 84484; 85025; 93005; 93306; 94761; 96374; 96375; 97161; 97165; 99285; G0378; J1171; J2270; J2405

== ENCOUNTER 2024-11-03 06:07 | Emergency (ER) | payer MEDICARE, MEDICAID, SELFPAY ==
[2024-11-03] VITALS (42 sets, daily range): BP systolic 122–178; BP diastolic 58–129; PULSE 79–122; TEMP 36.8; O2SAT 87–100; BMI 26.6
--- OUTSIDE RECORDS SUMMARY | 2024-11-03 06:14 | XMS_ITS ---
Author Organization OHIP Support Name Relationship Address Phone SHANK, ALMA Unknown Unknown Unavailable STEVEN, KELSEY Unknown Unknown [phone] SEARS, ASHLLY NaturalDaughter Unknown +[phone] SEARS, AB NaturalSon Unknown + SEARS, SHANKAR NaturalDaughter Unknown +[phone] SHANK, ALMA NaturalDaughter Unknown +[phone] SHANK, ALMA Unknown Unknown Unavailable SHANK, ALMA Unknown Unknown Unavailable STEVEN, KELSEY Unknown Unknown [phone] SEARS, ASHLLY NaturalDaughter Unknown +[phone] SEARS, AB NaturalSon Unknown + SEARS, SHANKAR NaturalDaughter Unknown +[phone] SHANK, ALMA NaturalDaughter Unknown +[phone] STEVEN, KELSEY Unknown Unknown [phone] SEARS, ASHLLY NaturalDaughter Unknown +[phone] SEARS, AB NaturalSon Unknown + SEARS, SHANKAR NaturalDaughter Unknown [phone] SHANK, ALMA NaturalDaughter Unknown [phone] SEARS, ASHLLY Unknown Unknown Unavailable SHANK, ALMA Unknown Unknown Unavailable SEARS, ASHLLY Unknown Unknown Unavailable SHANK, ALMA Unknown Unknown Unavailable SEARS, ASHLLY Unknown Unknown Unavailable SHANK, ALMA Unknown Unknown Unavailable STEVEN, KELSEY Unknown Unknown [phone] SEARS, ASHLLY NaturalDaughter Unknown +[phone] SEARS, AB NaturalSon Unknown + SEARS, SHANKAR NaturalDaughter Unknown +[phone] SHANK, ALMA NaturalDaughter Unknown [phone] STEVEN, KELSEY Unknown Unknown [phone] SEARS, ASHLLY NaturalDaughter Unknown [phone] SEARS, AB NaturalSon Unknown + SEARS, SHANKAR NaturalDaughter Unknown +[phone] SHANK, ALMA NaturalDaughter Unknown [phone] STEVEN, KELSEY Unknown Unknown [phone] SEARS, ASHLLY NaturalDaughter Unknown +[phone] SEARS, AB NaturalSon Unknown + SEARS, SHANKAR NaturalDaughter Unknown +[phone] SHANK, ALMA NaturalDaughter Unknown [phone] STEVEN, KELSEY Unknown Unknown [phone] SEARS, ASHLLY NaturalDaughter Unknown [phone] SEARS, AB NaturalSon Unknown + SEARS, SHANKAR NaturalDaughter Unknown +[phone] SHANK, ALMA NaturalDaughter Unknown [phone] SEARS, ASHLLY Unknown Unknown Unavailable SHANK, ALMA Unknown Unknown Unavailable SEARS, ASHLLY Unknown Unknown Unavailable SHANK, ALMA Unknown Unknown Unavailable SEARS, ASHLLY Unknown Unknown Unavailable SHANK, ALMA Unknown Unknown Unavailable Shank, Alma NaturalDaughter Unknown [phone] STEVEN, KELSEY Unknown Unknown +[phone] SEARS, ASHLLY NaturalDaughter Unknown +[phone] SEARS, AB NaturalSon Unknown + SEARS, SHANKAR NaturalDaughter Unknown [phone] SHANK, ALMA NaturalDaughter Unknown [phone] SEARS, ASHLLY Unknown Unknown Unavailable SHANK, ALMA Unknown Unknown Unavailable STEVEN, KELSEY Unknown Unknown +[phone] SEARS, ASHLLY NaturalDaughter Unknown +[phone] SEARS, AB NaturalSon Unknown + SEARS, SHANKAR NaturalDaughter Unknown +[phone] SHANK, ALMA NaturalDaughter Unknown [phone] SEARS, ASHLLY Unknown Unknown Unavailable SHANK, ALMA Unknown Unknown Unavailable SEARS, ASHLLY Unknown Unknown Unavailable SHANK, ALMA Unknown Unknown Unavailable SEARS, ASHLLY Unknown Unknown Unavailable SHANK, ALMA Unknown Unknown Unavailable STEVEN, KELSEY Unknown Unknown +[phone] SEARS, ASHLLY NaturalDaughter Unknown +[phone] SEARS, AB NaturalSon Unknown + SEARS, SHANKAR NaturalDaughter Unknown +[phone] SHANK, ALMA NaturalDaughter Unknown [phone] SEARS, ASHLLY Unknown Unknown Unavailable SHANK, ALMA Unknown Unknown Unavailable SEARS, ASHLLY Unknown Unknown Unavailable SHANK, ALMA Unknown Unknown Unavailable SEARS, ASHLLY Unknown Unknown Unavailable SHANK, ALMA Unknown Unknown Unavailable SEARS, ASHLLY Unknown Unknown Unavailable SHANK, ALMA Unknown Unknown Unavailable SEARS, ASHLLY Unknown Unknown Unavailable SHANK, ALMA Unknown Unknown Unavailable SEARS, ASHLLY Unknown Unknown Unavailable SHANK, ALMA Unknown Unknown Unavailable SEARS, ASHLLY Unknown Unknown Unavailable SHANK, ALMA Unknown Unknown Unavailable STEVEN, KELSEY Unknown Unknown +[phone] SEARS, ASHLLY NaturalDaughter Unknown +[phone] SEARS, AB NaturalSon Unknown + SEARS, SHANKAR NaturalDaughter Unknown +[phone] SHANK, ALMA NaturalDaughter Unknown +[phone] STEVEN, KELSEY Unknown Unknown +[phone] SEARS, ASHLLY NaturalDaughter Unknown +[phone] SEARS, AB NaturalSon Unknown + SEARS, SHANKAR NaturalDaughter Unknown +[phone] SHANK, ALMA NaturalDaughter Unknown [phone] Care Team Providers Care 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 Name Role Phone Susana Serrato Admitting Unavailable Susana Serrato Attending Unavailable Tae Valdez Referring Unavailable Naderer, Jono Primary Care Unavailable VERMALGORZATA WANG Attending Unavailable NADERER, JONO Referring Unavailable NADERER, JONO Primary Care Unavailable JOSE RAMIREZ Attending Unavailable JOSE RAMIREZ Referring Unavailable NADERER, JONO Primary Care Unavailable JOSE RAMIREZ Admitting Unavailable JOSE RAMIREZ Attending Unavailable NADERER, JONO Referring Unavailable NADERER, JONO Primary Care Unavailable CHAD COUGHLIN Attending Unavailable NADERER, JONO Primary Care Unavailable CHAD COUGHLIN Attending Unavailable NADERER, JONO Primary Care Unavailable VERHOFFMALGORZATA Attending Unavailable NADERER, JONO Referring Unavailable NADERER, JONO Primary Care Unavailable VERHOMALGORZATA DAVID Referring Unavailable NADERER, JONO Primary Care Unavailable NADERER, JONO Primary Care Unavailable JIN WHEAT Attending Unavailable JAMES GAINES Consulting Unavailable ROGER LEO Admitting Unavailable SRINIVAS MARQUEZ Consulting Unavailable FATOUMATA SPENCER Consulting Unavailable NADERER, JONO Referring Unavailable NADERER, JONO Primary Care Unavailable NADERER, JONO Referring Unavailable NADERER, JONO Primary Care Unavailable SUSANA TELLEZ Attending Unavailable NADERER, JONO Referring Unavailable NADERER, JONO Primary Care Unavailable NADERER, JONO Primary Care Unavailable ROCKY ALONZO. Attending Unavailable BOBBY GARCIA Admitting Unavailable BOBBY GARCIA Attending Unavailable ROCKY ALONZO Referring Unavailable NADERER, JONO Primary Care Unavailable (TTH ONLY), SURGERY B Consulting UnavailSONA Brooke Consulting Unavailable JEANNETTE DIAZ Consulting Unavailable TTH ONLY, [facility] Consulting Unavailable DAVID HUNT Consulting Unavailable SRINIVAS MARQUEZ Consulting Unavailable DAVI BERGERON Consulting Unavailable CAROLIN TURNER Consulting Unavailable SPRING BAUTISTA Consulting Unavailable ROCKY ALONZO Referring Unavailable NADERER, JONO Primary Care Unavailable NAOMI WOODRUFF Attending Unavailable NADERER, JONO Referring Unavailable NADERER, JONO Primary Care Unavailable NADERER, JONO Referring Unavailable NADERER, JONO Primary Care Unavailable NAOMI WOODRUFF Attending Unavailable NAOMI WOODRUFF Referring Unavailable NADERER, JONO Primary Care Unavailable NAOMI WOODRUFF Attending Unavailable NAOMI WOODRUFF Referring Unavailable NADERER, JONO Primary Care Unavailable NAOMI WOODRUFF Attending Unavailable NADERER, JONO Referring Unavailable NADERER, JONO Primary Care Unavailable LIGIBEL, SEMBRIA L Attending Unavailable EULA GALLAGHER Referring Unavailable JONO PHILIP Primary Care Unavailable CHAI BENNETT Attending Unavailable TAMERA, JONO Attending Unavailable TAMERA, JONO Attending Unavailable CHAI BENNETT W Attending Unavailable TAMERA, JONO Attending Unavailable CHAI BENNETT Attending Unavailable TAMERA, JONO Attending Unavailable CHAI BENNETT Attending Unavailable TAMERA, JONO Attending Unavailable BUDDY MARQUEZ Attending Unavailabl e TAMERA, JONO Attending Unavailable BENNETT, CHAI W Attending Unavailable Purpose PROBLEMS DATE TYPE CONDITION / CODE ATTENDING STATUS [facility] 10/25/2024 Unknown Essential (prima ry) hypertension / I10(ICD-10) EULA GALLAGHER [facility] 09/27/2024 Unknown Spinal stenosis, cervical region / M48.02(ICD-10) NAOMI WOODRUFF [facility] 08/18/2024 Unknown Shortness of gely ath / R06.02(ICD-10) [facility] 08/18/2024 Unknown Cough, unspecifi ed / R05.9(ICD-10) [facility] 08/18/2024 Unknown Other cervical d isc displacement, unspecified cervical region / M50.20(ICD-10) NAOMI WOODRUFF [facility] 08/18/2024 Unknown Spondylosis with out myelopathy or radiculopathy, cervical region / M47.812(ICD-10) NAOMI WOODRUFF [facility] 08/18/2024 Unknown Pain in left nathan ulder / M25.512(ICD-10) NAOMI WOODRUFF [facility] 08/18/2024 Unknown Cervicalgia / M54.2(ICD-10) NAOMI WOODRUFF [facility] 08/18/2024 Unknown Shoulder Pain / FREETEXT(AOF) NAOMI WOODRUFF [facility] 05/02/2024 Unknown End stage renal disease / N18.6(ICD-10) BOBBY GARCIA [facility] 05/02/2024 Unknown 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) [facility] 05/02/2024 Unknown Dependence on re nal dialysis / Z99.2(ICD-10) [facility] 05/02/2024 Unknown prison (curre nt) use of insulin / Z79.4(ICD-10) [facility] 05/02/2024 Unknown Infection and inflammatory reaction due to peritoneal dialysis catheter, subsequent encounter / T85.71XD(ICD-10) [facility] 04/01/2019 Unknown Localized edema / R60.0(ICD-10) [facility] 05/01/2024 Unknown Peritonitis, unspecified / K65.9(ICD-10) [facility] 04/30/2024 Unknown Unspecified inte stinal obstruction, unspecified as to partial versus complete obstruction / K56.609(ICD-10) ROCKY ALONZO [facility] 04/30/2024 Unknown Unspecified abdo candace pain / R10.9(ICD-10) ROCKY ALONZO [facility] 04/30/2024 Unknown Abdominal Pain / FREETEXT(AOF) ROCKY ALONZO [facility] 03/09/2024 Unknown Pain, unspecifie d / R52(ICD-10) [facility] 03/09/2024 Unknown Contusion and laceration of cerebrum, unspecified, with loss of consciousness status unknown, initial encounter / S06.33AA(ICD-10) JIN WHEAT [facility] 03/09/2024 Unknown Injury, unspecif ied, initial encounter / T14.90XA(ICD-10) JIN WHEAT [facility] 03/09/2024 Unknown Fall - major / FREETEXT(AOF) JIN WHEAT [facility] 01/01/2024 Unknown Diabetic periphe ral neuropathy ([facility]) [E11.42] / UNK(Unknown) JOSE RAMIREZ [facility] 12/10/2023 Unknown Type 2 diabetes mellitus with diabetic polyneuropathy / E11.42(ICD-10) MALGORZATA TRUJILLO [facility] 12/10/2023 Unknown Radiculopathy, l umbar region / M54.16(ICD-10) [facility] Vivek [facility] 03/27/2020 Unknown Spondylosis with out myelopathy or radiculopathy, lumbosacral region / M47.817(ICD-10) [facility] MAL[facility]OR[facility] N [facility] 12/09/2023 Unknown Back Pain / FREETEXT(AOF) [facility] PROCEDURES No Procedure Records Found VITAL SIGNS No Vital Signs Records Found RESULTS MR CERVICAL SPINE WO CONT Observed: 09/03 1:48 PM Status: COMPLETED Source: [facility] REPOSITORY MR CERVICAL SPINE WO CONT STUDY: MR CERVICAL SPINE WO CONT HISTORY: Neck pain TECHNIQUE: * Routine multiplanar multisequence MR imaging of the cervical spine was performed without intravenous contrast. FINDINGS: Mild motion degraded exam. Vertebral body heights and alignment are maintained. Mild multilevel degenerative changes with intervertebral disc space narrowing, disc herniation most significant at C3-C4, C5-C6. Thickening of the posterior longitudinal ligament. Visualized posterior fossa is unremarkable. No discrete cord signal abnormality on the sagittal imaging. There is artifact on the axial imaging which precludes definitive exclusion of cord signal changes. Nonspecific FLAIR hyperintensity along the left paravertebral soft tissues with adjacent facet arthropathy may reflect sequela synovitis. More rounded area of T2 hypointense, GRE hyperintense is noted in these paravertebral soft tissues, nonspecific (series 10, image 10). Remote lacunar infarcts in the right cerebellar hemisphere. C2-C3: Broad-based disc osteophyte complex, facet and uncovertebral arthropathy results in moderate spinal canal stenosis with moderate right and moderate to severe left neuroforaminal stenosis. C3-C4: Moderate broad-based disc osteophyte complex, ligamentum flavum hypertrophy and facet and uncovertebral arthropathy results in severe spinal canal stenosis and cord compression. Severe bilateral neuroforaminal stenosis. C4-C5: Mild broad-based disc osteophyte complex, facet and uncovertebral arthropathy results in mild spinal canal stenosis with moderate to severe bilateral neuroforaminal stenosis. C5-C6: Moderate broad-based disc osteophyte complex, significant ligamentum flavum hypertrophy and facet and uncovertebral arthropathy results in severe spinal canal stenosis and cord compression. Severe right and moderate to severe left neuroforaminal stenosis. C6-C7: Mild broad-based disc osteophyte complex with facet and uncovertebral arthropathy results in minimal spinal canal stenosis with moderate right and moderate to severe left neuroforaminal stenosis. C7-T1: Mild right and mild to moderate left neuroforaminal stenosis is result of facet and uncovertebral arthropathy. No significant spinal canal stenosis. IMPRESSION: * Multilevel degenerative spondylosis with severe spinal canal stenosis and cord compression at C3-C4 and C5-C6. It is hard to definitively exclude underlying cord signal changes on the axial imaging due to motion artifact. If patient has myelopathic symptoms, recommend neurosurgical evaluation. * Severe multilevel neuroforaminal stenosis as described. * Nonspecific FLAIR hyperintensity along the left paravertebral soft tissues with adjacent facet arthropathy may reflect sequela of synovitis. More rounded area of T2 hypointense, GRE hyperintense is noted in these paravertebral soft tissues, nonspecific. This may be new from 03/09/2024. THIS REPORT CONTAINS A SIGNIFICANT RESULT AND/OR RECOMMENDATION, WHICH REQUIRES THE ATTENTION OF THE LICENSED CAREGIVER RESPONSIBLE FOR THIS PATIENT. THEREFORE, I SPECIFICALLY DESIGNATED THIS REPORT TO BE TELEPHONED BY THE RADIOLOGY DEPARTMENT. FINDINGS WERE INSTRUCTED TO BE CALLED TO THE CLINICAL SERVICE ON 09/20/2024 8:37 PM Finalized by Stef Newell on 09/20/2024 8:41 PM XR SHOULDER LT MIN 2 VWS Observed: 08/18 1:38 PM Status: COMPLETED Source: [facility] REPOSITORY XR SHOULDER LT MIN 2 VWS History: Pain Exam/Technique: 3 views of the left shoulder were obtained. Comparison: 03/09/2024 Findings: There are mild osteoarthritic changes in the acromioclavicular and glenohumeral joints. There are subcortical cysts within the humeral head. Acute osseous abnormality. No dislocation is seen. IMPRESSION: Stable osteoarthritic changes. Otherwise normal left shoulder. Finalized by Brown Lewis MD on 08/18/2024 2:26 PM XR CHEST 2 VWS Observed: 08/18/2024 1:38 PM Status: COMPLETED Source: [facility] REPOSITORY XR CHEST 2 VWS Indication: Cough shortness breath. TECHNIQUE: Frontal and lateral views of the chest are obtained and compared to prior exam dated 05/01/2024. FINDINGS: Minimal linear density persists over left lower lobe region on frontal view decreased conspicuity since prior exam likely some scarring. Heart and mediastinum are within normal limits. Focal consolidation, pleural effusion, or pneumothorax is not seen. IMPRESSION: 1. No acute pulmonary process seen. Finalized by Lidia Stephens MD on 08/18/2024 2:47 PM BEDSIDE GLUCOSE LAB Collected: 05/04/2024 11:36 AM Status: COMPLETED Source: [facility] REPOSITORY TYPE CODE TESTS RESULT OUT OF RANGE REFERENCE UNITS LAB BEDG(LOINC) BEDSIDE GLUCOSE LAB 233 High 65-99 mg/dL BEDSIDE GLUCOSE LAB Collected: 05/04/2024 8:43 AM Status: COMPLETED Source: [facility] REPOSITORY TYPE CODE TESTS RESULT OUT OF RANGE REFERENCE UNITS LAB BEDG(LOINC) BEDSIDE GLUCOSE LAB 193 High 65-99 mg/dL CBC AND AUTO DIFF Collected: 05/04/2024 4:48 AM Status: COMPLETED Source: [facility] REPOSITORY TYPE CODE TESTS RESULT OUT OF RANGE REFERENCE UNITS LAB WBC(LOINC) WBC COUNT 4.1 4.0-11.0 X10E9/L LAB RBC(LOINC) RBC COUNT 3.40 Low 4.10-5.70 X10E12/L LAB HGB(LOINC) HEMOGLOBIN 11.0 Low 13.0-17.0 g/dL LAB HCT(LOINC) HEMATOCRIT 32.0 Low 39-49 % LAB MCV(LOINC) MCV 94 80-100 fL LAB MCH(LOINC) MCH 32.3 27-34 pg LAB MCHC(LOINC) MCHC 34.4 32-36 g/dL LAB RDW(LOINC) RDW 14.9 11.5-15.0 % LAB PLTC(LOINC) PLATELET COUNT 125 Low 150-450 X10E9 /L LAB MPV(LOINC) MPV 8.9 7-12 fL LAB NEUT(LOINC) % NEUTROPHILS 78.2 % LAB LYMP(LOINC) % LYMPHOCYTES 7.6 % LAB MONO(LOINC) % MONOCYTES 8.6 % LAB EOS(LOINC) % EOSINOPHILS 4.9 % LAB BASO(LOINC) % BASOPHILS 0.7 % LAB ANEUT(LOINC) ABSOLUTE NEUTROPHIL 3.2 1.5-6.6 X10E9/L LAB ALYMP(LOINC) ABSOLUTE LYMPHOCYTE 0.3 Low 1.0-3.5 X10E9/L LAB AMONO(LOINC) ABSOLUTE MONOCYTE 0.4 0-0.9 X10E9/L LAB AEOS(LOINC) ABSOLUTE EOSINOPHIL 0.2 0.0-0.4 X10E9/L LAB ABASO(LOINC) ABSOLUTE BASOPHIL 0.0 0.0-0.2 X10E9/L Performed By: #### CBCA, CMP , [id number] #### [facility] ([id number]) [address], [address] [place] [address] COMPREHENSIVE METABOLIC PANEL Collected: 2023 4:48 AM Status: COMPLETED Source: [facility] REPOSITORY TYPE CODE TESTS RESULT OUT OF RANGE REFERENCE UNITS LAB NA(LOINC) SODIUM 144 134-146 mmol/L LAB K(LOINC) POTASSIUM 3.8 3.5-5.0 mmol/L LAB CL(LOINC) CHLORIDE 107 98-109 mmol/L LAB CO2(LOINC) CARBON DIOXIDE 27 22-32 mmol/L LAB AGAP(LOINC) ANION GAP 10 5-15 mmol/L LAB BUN(LOINC) BLOOD UREA NITROGEN 43 High 5-27 mg/dL LAB CRET(LOINC) CREATININE 3.59 High 0.60-1.30 mg/dL Result Comment: METHOD TRACE ABLE TO IDMS STANDARD LAB GLU(LOINC) GLUCOSE 74 65-99 mg/dL LAB CA(LOINC) CALCIUM 8.5 8.5-10.5 mg/dL LAB TP(LOINC) TOTAL PROTEIN 5.3 Low 6.0-8.0 g/dL LAB ALB(LOINC) ALBUMIN 3.0 Low 3.2-5.3 g/dL LAB ALK(LOINC) ALKALINE PHOSPHATASE 78 39-130 U/L LAB AST(LOINC) AST 28 0-41 U/L LAB ALT1(LOINC) ALT 22 0-40 U/L LAB TBIL([facility]) BILIRUBIN,TOTAL 0.3 0.3-1.2 mg/d L LAB EGFR([facility]) eGFR (CKD-EPI) NON-RACE DEPENDENT 17 Low >59 ml/min/1 .73sq.m Result Comment: Reported eGFR is based on the CKD-EPI 2020 equation that does not use a race coefficient. Performed By: #### CBCA, CMP , [id number] #### [facility] ([id number]) [address] [place] [address], [address] [place] [address] MAGNESIUM Collected: 05/04/2024 4:48 AM S tatus: COMPLETED Source: [facility] REPOSITORY TYPE CODE TESTS RESULT OUT OF RANGE REFERENCE UNITS LAB MG([facility]) MAGNESIUM 1.9 1.8-2.6 mg/dL Performed By: #### CBCA, CMP , [id number] #### [facility] ([id number]) [address] [place] [address], [address] [place] [address] BEDSIDE GLUCOSE LAB Collected: 05/03/2024 9:29 PM Status: COMPLETED Source: [facility] REPOSITORY TYPE CODE TESTS RESULT OUT OF RANGE REFERENCE UNITS LAB BEDG([facility]) BEDSIDE GLUCOSE LAB 217 High 65-99 mg/dL BEDSIDE GLUCOSE LAB Collected: 05/03/2024 6:00 PM Status: COMPLETED Source: [facility] REPOSITORY TYPE CODE TESTS RESULT OUT OF RANGE REFERENCE UNITS LAB BEDG([facility]) BEDSIDE GLUCOSE LAB 152 High 65-99 mg/dL BEDSIDE GLUCOSE LAB Collected: 05/03/2024 5:03 PM Status: COMPLETED Source: [facility] REPOSITORY TYPE CODE TESTS RESULT OUT OF RANGE REFERENCE UNITS LAB BEDG([facility]) BEDSIDE GLUCOSE LAB 51 Low Alert 65-99 mg/dL BEDSIDE GLUCOSE LAB Collected: 05/03/2024 1:16 PM Status: COMPLETED Source: [facility] REPOSITORY TYPE CODE TESTS RESULT OUT OF RANGE REFERENCE UNITS LAB BEDG([facility]) BEDSIDE GLUCOSE LAB 229 High 65-99 mg/dL BEDSIDE GLUCOSE LAB Collected: 05/03/2024 8:16 AM Status: COMPLETED Source: [facility] REPOSITORY TYPE CODE TESTS RESULT OUT OF RANGE REFERENCE UNITS LAB BEDG([facility]) BEDSIDE GLUCOSE LAB 176 High 65-99 mg/dL CBC AND AUTO DIFF Collected: 05/03/2024 3:38 AM Status: COMPLETED Source: [facility] REPOSITORY TYPE CODE TESTS RESULT OUT OF RANGE REFERENCE UNITS LAB WBC(LOINC) WBC COUNT 4.3 4.0-11.0 X10E9/L LAB RBC(LOINC) RBC COUNT 3.42 Low 4.10-5.70 X10E12/L LAB HGB(LOINC) HEMOGLOBIN 11.2 Low 13.0-17.0 g/dL LAB HCT(LOINC) HEMATOCRIT 32.4 Low 39-49 % LAB MCV(LOINC) MCV 95 80-100 fL LAB MCH(LOINC) MCH 32.7 27-34 pg LAB MCHC(LOINC) MCHC 34.5 32-36 g/dL LAB RDW(LOINC) RDW 15.2 High 11.5-15.0 % LAB PLTC(LOINC) PLATELET COUNT 123 Low 150-450 X10E9 /L LAB MPV(LOINC) MPV 8.6 7-12 fL LAB NEUT(LOINC) % NEUTROPHILS 77.0 % LAB LYMP(LOINC) % LYMPHOCYTES 4.6 % LAB MONO(LOINC) % MONOCYTES 11.5 % LAB EOS(LOINC) % EOSINOPHILS 4.9 % LAB BASO(LOINC) % BASOPHILS 2.0 % LAB ANEUT(LOINC) ABSOLUTE NEUTROPHIL 3.3 1.5-6.6 X10E9/L LAB ALYMP(LOINC) ABSOLUTE LYMPHOCYTE 0.2 Low 1.0-3.5 X10E9/L LAB AMONO(LOINC) ABSOLUTE MONOCYTE 0.5 0-0.9 X10E9/L LAB AEOS(LOINC) ABSOLUTE EOSINOPHIL 0.2 0.0-0.4 X10E9/L LAB ABASO(LOINC) ABSOLUTE BASOPHIL 0.1 0.0-0.2 X10E9/L Performed By: #### CBCA, CMP #### [facility] ([id number]) [address], [address] [place] [address] COMPREHENSIVE METABOLIC PANEL Collected: 2023 3:38 AM Status: COMPLETED Source: [facility] REPOSITORY TYPE CODE TESTS RESULT OUT OF RANGE REFERENCE UNITS LAB NA(LOINC) SODIUM 140 134-146 mmol/L LAB K(LOINC) POTASSIUM 3.4 Low 3.5-5.0 mmol/L LAB CL(LOINC) CHLORIDE 104 98-109 mmol/L LAB CO2(LOINC) CARBON DIOXIDE 25 22-32 mmol/L LAB AGAP(LOINC) ANION GAP 11 5-15 mmol/L LAB BUN(LOINC) BLOOD UREA NITROGEN 50 High 5-27 mg/dL LAB CRET(LOINC) CREATININE 3.98 High 0.60-1.30 mg/dL Result Comment: METHOD TRACE ABLE TO IDMS STANDARD LAB GLU(LOINC) GLUCOSE 156 High 65-99 mg/dL LAB CA(LOINC) CALCIUM 8.9 8.5-10.5 mg/dL LAB TP(LOINC) TOTAL PROTEIN 5.6 Low 6.0-8.0 g/dL LAB ALB(LOINC) ALBUMIN 3.1 Low 3.2-5.3 g/dL LAB ALK(LOINC) ALKALINE PHOSPHATASE 84 39-130 U/L [facility] AST 25 0-41 U/L LAB ALT1([facility]) ALT 21 0-40 U/L LAB TBIL([facility]) BILIRUBIN,TOTAL 0.4 0.3-1.2 mg/d L LAB EGFR([facility]) eGFR (CKD-EPI) NON-RACE DEPENDENT 15 Low >59 ml/min/1 .73sq.m Result Comment: Reported eGFR is based on the CKD-EPI 2020 equation that does not use a race coefficient. Performed By: #### CBCA, CMP #### [facility] ([id number]) [address] [place] [address], [facility] [address] [place] [address] POTASSIUM Collected: 10:35 PM Status: COMPLETED Source: [facility] REPOSITORY TYPE CODE TESTS RESULT OUT OF RANGE REFERENCE UNITS LAB K([facility]) POTASSIUM 3.3 Low 3.5-5.0 mmol/L Performed By: #### [id number] ## ## [facility] ([id number]) [address] [place] [address], [address] [place] [address] BEDSIDE GLUCOSE LAB Collected: 05/02/2024 9:15 PM Status: COMPLETED Source: [facility] REPOSITORY TYPE CODE TESTS RESULT OUT OF RANGE REFERENCE UNITS LAB BEDG([facility]) BEDSIDE GLUCOSE LAB 142 High 65-99 mg/dL FLUID CULTURE Observed: 05/02/2024 6:30 PM Status: COMPLETED Source: [facility] REPOSITORY SPECIMEN NOTES EFFLUENT GRAM STAIN WHITE BLOOD CELLS PRESENT NO ORGANISMS SEEN ON CONCENTRATED SMEAR CULTURE RESULTS NO GROWTH 5 DAYS Performed By: #### [id number] ### # [facility] ([id number]) [address] [place] [address], [address] [place] [address] AND DIFF Collected: 05/02/2024 6:30 PM Status: COMPLETED Source: [facility] REPOSITORY TYPE CODE TESTS RESULT OUT OF RANGE REFERENCE UNITS LAB FSPC(LOINC) FLUID SPECIMEN TYPE PERITONEAL DIALYSIS Result Comment: EFFLUENT LAB BFPOLY(LOINC) FLUID NEUTROPHILS 16 % LAB BFLYM(LOINC) FLUID LYMPHOCYTE 12 % LAB BFMES(LOINC) FLUID MESOTHELIAL 6 % LAB PHAG(LOINC) MACROPHAGES 66 % LAB BFWBC(LOINC) NUCLEATED CELL CT 74 /uL LAB BFRBC(LOINC) FLUID RBC CT 43 /uL LAB FCOLR(LOINC) FLUID COLOR STRAW LAB BFAPPR(LOINC) FLUID CLARITY CLEAR LAB BFC(LOINC) BODY FLUID COMMENT Inte rpretation---- ---- Result Comment: Reference va lues for this fluid type are undefined, as fluid accumulation is considered abnormal. Performed By: #### BFCT #### [facility] ([id number]) [address] [place] [address], [address] [place] [address] BEDSIDE GLUCOSE LAB Collected: 05/02/2024 6:13 PM Status: COMPLETED Source: [facility] REPOSITORY TYPE CODE TESTS RESULT OUT OF RANGE REFERENCE UNITS LAB BEDG(LOINC) BEDSIDE GLUCOSE LAB 105 High 65-99 mg/dL MR MRCP WITH MRI ABD W WO CONT Observed: 05/02/2024 5:02 PM Status: COMPLETED Source: [facility] REPOSITORY MR MRCP WITH MRI ABD W WO CO NT CLINICAL INFORMATION: Pancreatic cyst, pancreatic mucinous tumor, abdominal pain COMPARISON: MRCP 11/08/2021 TECHNIQUE: Routine multiplanar multisequence MR imaging of the abdomen was performed prior to and following uneventful administration of 16 cc ProHance intravenous gadolinium contrast. M.R.C.P. was performed with 3-D volume rendered reformatted and maximum intensity projection rotational images for the evaluation of the pancreatic and biliary ductal system at the MR console under concurrent physician supervision. FINDINGS: LIVER AND BILIARY: No significant signal drop on opposed phase imaging. Overall noncirrhotic liver morphology. No significant intrahepatic or extrahepatic biliary ductal dilatation. Cholelithiasis. Phrygian cap gallbladder. No suspicious hepatic mass or lesion. PANCREAS: Multiple incidental pancreatic cystic lesions. The largest one is indeterminate, measuring 4.7 cm in the tail. High-risk feature(s)/stigmata are present: peripheral calcification. Communication between the cyst and the main pancreatic duct cannot be determined. SPLEEN: Mild prominence of the spleen in transverse dimension. ADRENALS: No adrenal mass or lesion. KIDNEYS: Enhancing solid renal mass left upper pole measuring 1.7 cm (series 1050, image 65). Multiple additional bilateral hemorrhagic/proteinaceous cysts are seen. No collecting system dilatation. GI TRACT AND PERITONEUM: Trace ascites. Partially visualized peritoneal dialysis catheter. VASCULATURE: Severe aortic atherosclerotic disease with similar complete/near-complete occlusion of the distal abdominal aorta similar focal narrowing of the mid splenic vein with possible dilated distal splenic vein branches. LYMPH NODES: No new or enlarging lymph nodes. MUSCULOSKELETAL: Vertebral body hemangioma L1 LOWER CHEST/LOCALIZER: No acute findings IMPRESSION: * Redemonstrated technically indeterminate 4.7 cm predominantly cystic lesion arising from the pancreatic tail (possibly dilated pancreatic duct). Adjacent pancreatic calcifications suggest sequelae of chronic pancreatitis, likely with upstream ductal stone/obstruction. Presents of subtle peripheral calcification about the cystic lesion remain indeterminate. Consider EUS / FNA or evaluation for surgery if clinically indicated. * Redemonstrated enhancing solid renal mass in the left upper pole measuring 1.7 cm. * Severe aortic atherosclerotic disease with similar complete/near-complete occlusion of the distal abdominal aorta. * Narrowing of the mid splenic vein with mild dilatation of distal splenic vasculature and mild prominence of the spleen. * Cholelithiasis. Approved by Resident Caleb Izaguirre DO on 05/03/2024 7:31 AM Charlotte Finley MD have personally reviewed the image(s) and agree with and/or edited the report Finalized by Charlotte Martínez MD on 05/03/2024 10:06 AM URINE CULTURE Observed: 05/02/2024 12:50 PM Status: COMPLETED Source: [employer] [facility] REPOSITORY CULTURE RESULTS NO GROWTH AT <1000 CFU/mL Performed By: #### 630-4 ### # [facility] ([id number]) [address], [address] [place] [address] BEDSIDE GLUCOSE LAB Collected: 05/02/2024 11:59 AM Status: COMPLETED Source: [facility] REPOSITORY TYPE CODE TESTS RESULT OUT OF RANGE REFERENCE UNITS LAB BEDG(LOINC) BEDSIDE GLUCOSE LAB 90 65-99 mg/dL BEDSIDE GLUCOSE LAB Collected: 05/02/2024 8:19 AM Status: COMPLETED Source: [facility]POS[facility]ORY TYPE CODE TESTS RESULT OUT OF RANGE REFERENCE UNITS LAB BEDG(LOINC) BEDSIDE GLUCOSE LAB 85 65-99 mg/dL CBC AND AUTO DIFF Collected: 05/02/2024 4:56 AM Status: COMPLETED Source: [facility] REPOSITORY TYPE CODE TESTS RESULT OUT OF RANGE REFERENCE UNITS LAB WBC(LOINC) WBC COUNT 5.3 4.0-11.0 X10E9/L LAB RBC(LOINC) RBC COUNT 3.45 Low 4.10-5.70 X10E12/L LAB HGB(LOINC) HEMOGLOBIN 11.2 Low 13.0-17.0 g/dL LAB HCT(LOINC) HEMATOCRIT 32.7 Low 39-49 % LAB MCV(LOINC) MCV 95 80-100 fL LAB MCH(LOINC) MCH 32.4 27-34 pg LAB MCHC(LOINC) MCHC 34.2 32-36 g/dL LAB RDW(LOINC) RDW 15.3 High 11.5-15.0 % LAB PLTC(LOINC) PLATELET COUNT 149 Low 150-450 X10E9 /L LAB MPV(LOINC) MPV 9.5 7-12 fL LAB NEUT(LOINC) % NEUTROPHILS 82.6 % LAB LYMP(LOINC) % LYMPHOCYTES 4.9 % LAB MONO(LOINC) % MONOCYTES 8.7 % LAB EOS(LOINC) % EOSINOPHILS 3.4 % LAB BASO(LOINC) % BASOPHILS 0.4 % LAB ANEUT(LOINC) ABSOLUTE NEUTROPHIL 4.4 1.5-6.6 X10E9/L LAB ALYMP(LOINC) ABSOLUTE LYMPHOCYTE 0.3 Low 1.0-3.5 X10E9/L LAB AMONO(LOINC) ABSOLUTE MONOCYTE 0.5 0-0.9 X10E9/L LAB AEOS(LOINC) ABSOLUTE EOSINOPHIL 0.2 0.0-0.4 X10E9/L LAB ABASO(LOINC) ABSOLUTE BASOPHIL 0.0 0.0-0.2 X10E9/L Performed By: #### CBCA, CMP #### [facility] ([id number]) [address], [address] [place] [address] COMPREHENSIVE METABOLIC PANEL Collected: 2023 4:56 AM Status: COMPLETED Source: [facility] REPOSITORY TYPE CODE TESTS RESULT OUT OF RANGE REFERENCE UNITS LAB NA(LOINC) SODIUM 142 134-146 mmol/L LAB K(LOINC) POTASSIUM 3.7 3.5-5.0 mmol/L LAB CL(LOINC) CHLORIDE 108 98-109 mmol/L LAB CO2(LOINC) CARBON DIOXIDE 20 Low 22-32 mmol/L LAB AGAP(LOINC) ANION GAP 14 5-15 mmol/L LAB BUN(LOINC) BLOOD UREA NITROGEN 57 High 5-27 mg/dL LAB CRET(LOINC) CREATININE 4.39 High 0.60-1.30 mg/dL Result Comment: METHOD TRACE ABLE TO IDMS STANDARD LAB GLU(LOINC) GLUCOSE 110 High 65-99 mg/dL LAB CA(LOINC) CALCIUM 8.2 Low 8.5-10.5 mg/dL LAB TP(LOINC) TOTAL PROTEIN 5.3 Low 6.0-8.0 g/dL LAB ALB(LOINC) ALBUMIN 3.0 Low 3.2-5.3 g/dL LAB ALK(LOINC) ALKALINE PHOSPHATASE 84 39-130 U/L LAB AST(LOINC) AST 18 0-41 U/L LAB ALT1(LOINC) ALT 15 0-40 U/L LAB TBIL(LOINC) BILIRUBIN,TOTAL 0.3 0.3-1.2 mg/d L LAB EGFR(LOINC) eGFR (CKD-EPI) NON-RACE DEPENDENT 14 Low >59 ml/min/1 .73sq.m Result Comment: Reported eGFR is based on the CKD-EPI 2020 equation that does not use a race coefficient. Performed By: #### CBCA, CMP #### [facility] ([id number]) [address] [facility], [address] [place] [address] BEDSIDE GLUCOSE LAB Collected: 05/01/2024 9:00 PM Status: COMPLETED Source: [facility]POSITORY TYPE CODE TESTS RESULT OUT OF RANGE REFERENCE UNITS LAB [facility] 168 High 65-99 mg/dL POTASSIUM Collected: 05/01/2024 6:45 PM S tatus: COMPLETED Source: [facility]POS[facility] TYPE CODE TESTS RESULT OUT OF RANGE REFERENCE UNITS LAB K(LOINC) POTASSIUM 3.7 3.5-5.0 mmol/L Performed By: #### 2823-3, 1 9123-9 #### [facility] ([id number]) [address] [facility], [address] [place] [address] MAGNESIUM Collected: 05/01/2024 6:45 PM S tatus: COMPLETED Source: [facility]POSIT[facility] TYPE CODE TESTS RESULT OUT OF RANGE REFERENCE UNITS LAB MG(INC) MAGNESIUM 2.4 1.8-2.6 mg/dL Performed By: #### 2823-3, 1 9123-9 #### [facility] ([id number]) [address] [facility], [address] [place] [address] BEDSIDE GLUCOSE LAB Collected: 05/01/2024 5:24 PM Status: COMPLETED Source: [facility]POS[facility] TYPE CODE TESTS RESULT OUT OF RANGE REFERENCE UNITS LAB BEDG([facility]) BEDSIDE GLUCOSE LAB 83 65-99 mg/dL XR CHEST 1 VW Observed: 05/01/2024 2:22 PM Status: COMPLETED Source: [facility] REPOSITORY XR CHEST 1 VW EXAM: XR CHEST 1 VW CLINICAL INFORMATION: SOB. COMPARISON: 03/09/2024 FINDINGS: There are no pleural effusions. There is mild left basilar atelectasis. There are no focal consolidations. There is no pulmonary edema. Heart size is within normal limits. IMPRESSION: Mild left basilar atelectasis. There is no evidence for acute cardiopulmonary disease. Finalized by Flavio Vega MD on 05/01/2024 2:54 PM XR ABDOMEN AP 1 VW Observed: 05/01/2024 2:11 PM Status: COMPLETED Source: [facility] REPOSITORY XR ABDOMEN AP 1 VW EXAM: XR ABDOMEN AP 1 VW CLINICAL INFORMATION: SBO. COMPARISON: CT of the abdomen and pelvis dated 04/30/2024 FINDINGS: There are mildly dilated air-filled bowel loops throughout the abdomen, compatible with small bowel obstruction as seen on CT. Scattered residual retained enteric contrast is present. There is no evidence of pneumatosis or free air. Multiple vascular stents are again noted. There are inguinal postsurgical changes. IMPRESSION: 1. Mildly dilated air-filled bowel loops, compatible with small bowel obstruction on recent CT. There is no evidence of pneumatosis or free air. 2. Multiple vascular stents. Finalized by Flavio Vega MD on 05/01/2024 2:38 PM BEDSIDE GLUCOSE LAB Collected: 05/01/2024 11:55 AM Status: COMPLETED Source: [facility]POS[facility] TYPE CODE TESTS RESULT OUT OF RANGE REFERENCE UNITS LAB BEDG(LOINC) BEDSIDE GLUCOSE LAB 96 65-99 mg/dL BEDSIDE GLUCOSE LAB Collected: 05/01/2024 8:32 AM Status: COMPLETED Source: [facility]POS[facility] TYPE CODE TESTS RESULT OUT OF RANGE REFERENCE UNITS LAB BEDG(LOINC) BEDSIDE GLUCOSE LAB 92 65-99 mg/dL CBC AND AUTO DIFF Collected: 05/01/2024 5:46 AM Status: COMPLETED Source: [facility]POS[facility] TYPE CODE TESTS RESULT OUT OF RANGE REFERENCE UNITS LAB WBC(LOINC) WBC COUNT 5.2 4.0-11.0 X10E9/L LAB RBC(LOINC) RBC COUNT 3.37 Low 4.10-5.70 X10E12/L LAB HGB(LOINC) HEMOGLOBIN 11.0 Low 13.0-17.0 g/dL LAB HCT(LOINC) HEMATOCRIT 31.8 Low 39-49 % LAB MCV(LOINC) MCV 94 80-100 fL LAB MCH(LOINC) MCH 32.5 27-34 pg LAB MCHC(LOINC) MCHC 34.4 32-36 g/dL LAB RDW(LOINC) RDW 15.1 High 11.5-15.0 % LAB PLTC(LOINC) PLATELET COUNT 123 Low 150-450 X10E9 /L LAB MPV(LOINC) MPV 8.7 7-12 fL LAB NEUT(LOINC) % NEUTROPHILS 83.2 % LAB LYMP(LOINC) % LYMPHOCYTES 3.4 % LAB MONO(LOINC) % MONOCYTES 8.6 % LAB EOS(LOINC) % EOSINOPHILS 3.7 % LAB BASO(LOINC) % BASOPHILS 1.1 % LAB ANEUT(LOINC) ABSOLUTE NEUTROPHIL 4.3 1.5-6.6 X10E9/L LAB ALYMP(LOINC) ABSOLUTE LYMPHOCYTE 0.2 Low 1.0-3.5 X10E9/L LAB AMONO(LOINC) ABSOLUTE MONOCYTE 0.4 0-0.9 X10E9/L LAB AEOS(LOINC) ABSOLUTE EOSINOPHIL 0.2 0.0-0.4 X10E9/L LAB ABASO(LOINC) ABSOLUTE BASOPHIL 0.1 0.0-0.2 X10E9/L Performed By: #### CBCA #### [facility] ([id number]) [address] [place] [address], [address] [place] [address] LACTATE W/REFLEX Collected: 05/01/2024 5:46 AM Status: COMPLETED Source: [facility]POS[facility] TYPE CODE TESTS RESULT OUT OF RANGE REFERENCE UNITS LAB LACTS(LOINC) LACTATE W/REFLEX 0.9 0.4-2.0 mmol/L Result Comment: Result did not trigger repeat Lactate, re-order if needed. Performed By: #### [id number] # ### [facility] ([id number]) [address] [place] [address], [address] [place] [address] IRON PROFILE Collected: 5:46 AM Status: COMPLETED Source: [facility]POS[facility] TYPE CODE TESTS RESULT OUT OF RANGE REFERENCE UNITS LAB FE(LOINC) IRON 18 Low 50-212 ug/dL LAB TIBC(LOINC) IRON BINDING 220 Low 250-425 ug/dL LAB SAT(LOINC) IRON SATURATION 8 Low 20-50 % SATURATION Performed By: #### FEPR, 227 6-4, 2284-8, 2132-9 #### [facility] ([id number]) [address] [place] [address], [address] [place] [address] FERRITIN Collected: 05/01/2024 5:46 AM S tatus: COMPLETED Source: [facility]POS[facility] TYPE CODE TESTS RESULT OUT OF RANGE REFERENCE UNITS LAB FERR(LOINC) FERRITIN 739 High 24-336 ng/mL Performed By: #### FEPR, 227 6-4, 4-8, 2132-04 #### [facility] ([id number]) [address] [place] [address], [address] [address] FOLIC ACID Collected: 05/01/2024 5:46 AM S tatus: COMPLETED Source: [facility]POS[facility] TYPE CODE TESTS RESULT OUT OF RANGE REFERENCE UNITS LAB FOLI(LOINC) FOLIC ACID >25.0 >5.8 ng/mL Result Comment: NEW REFERENC E RANGE Performed By: #### ELENAR, 227 6-4, 2283-8, 2132-04 #### [facility] ([id number]) [address] [place] [address], [address] [place] [address] VITAMIN B12 Collected: 05/01/2024 5:46 AM S tatus: COMPLETED [facility]: [facility] TYPE CODE TESTS RESULT OUT OF RANGE REFERENCE UNITS LAB B12(LOINC) VITAMIN B12 1153 High 180-914 pg/mL Performed By: #### ISMAEL, 227 6-4, 2283-8, 2132-04 #### [facility] ([id number]) [address] [place] [address], [address] [address] PROTIME AND INR Collected: 05/01/2024 5:46 AM Status: COMPLETED [facility]: [facility] TYPE CODE TESTS RESULT OUT OF RANGE REFERENCE UNITS LAB PROX(LOINC) PROTIME 11.7 9.8-13.2 sec LAB INR(LOINC) INR 1.0 0.8-1.1 Performed By: #### SHERLY, 149 79-9, CMP, 45253-1, 2777-1, 89535-2, HA1C #### [facility] ([id number]) [address] [place] [address], [address] [place] [address] APTT Collected: 05/01/2024 5:46 AM S tatus: COMPLETED Source: [facility] TYPE CODE TESTS RESULT OUT OF RANGE REFERENCE UNITS LAB PTT(LOINC) APTT 33 26-37 sec Performed By: #### RONALDOR, 149 79-9, CMP, 84864-8, 2777-1, 04541-1, HA1C #### [facility] ([id number]) [address] [facility], [address] [place] [address] COMPREHENSIVE METABOLIC PANEL Collected: 2023 5:46 AM Status: COMPLETED Source: [facility] TYPE CODE TESTS RESULT OUT OF RANGE REFERENCE UNITS LAB NA(LOINC) SODIUM 142 134-146 mmol/L LAB K(LOINC) POTASSIUM 3.2 Low 3.5-5.0 mmol/L LAB CL(LOINC) CHLORIDE 104 98-109 mmol/L LAB CO2(LOINC) CARBON DIOXIDE 23 22-32 mmol/L LAB AGAP(LOINC) ANION GAP 15 5-15 mmol/L LAB BUN(LOINC) BLOOD UREA NITROGEN 61 High 5-27 mg/dL LAB CRET(LOINC) CREATININE 4.67 High 0.60-1.30 mg/dL Result Comment: METHOD TRACE ABLE TO IDMS STANDARD LAB GLU(LOINC) GLUCOSE 93 65-99 mg/dL LAB CA(LOINC) CALCIUM 8.1 Low 8.5-10.5 mg/dL LAB TP(LOINC) TOTAL PROTEIN 5.6 Low 6.0-8.0 g/dL LAB ALB(LOINC) ALBUMIN 3.2 3.2-5.3 g/dL LAB ALK(LOINC) ALKALINE PHOSPHATASE 95 39-130 U/L LAB AST(LOINC) AST 19 0-41 U/L LAB ALT1(LOINC) ALT 16 0-40 U/L LAB TBIL(LOINC) BILIRUBIN,TOTAL 0.4 0.3-1.2 mg/d L LAB EGFR(LOINC) eGFR (CKD-EPI) NON-RACE DEPENDENT 13 Low >59 ml/min/1 .73sq.m Result Comment: Reported eGFR is based on the CKD-EPI 202 equation that does not use a race coefficient. Performed By: #### PINR, 149 79-9, CMP, 07613-0, 2777-1, 20634-7, HA1C #### [facility] ([id number]) [address] [place] [address], [address] [place] [address] MAGNESIUM Collected: 05/01/2024 5:46 AM S tatus: COMPLETED Source: [facility]POS[facility] TYPE CODE TESTS RESULT OUT OF RANGE REFERENCE UNITS LAB MG(LOINC) MAGNESIUM 1.7 Low 1.8-2.6 mg/dL Performed By: #### PINR, 149 79-9, CMP, 04763-2, 2777-1, 98656-3, HA1C #### [facility] ([id number]) [address] [place] [address], [facility] [address] [place] [address] PHOSPHORUS Collected: 05/01/2024 5:46 AM S tatus: COMPLETED Source: [employer] REPOSITORY TYPE CODE TESTS RESULT OUT OF RANGE REFERENCE UNITS LAB PHOS([facility]) PHOSPHORUS 3.5 2.4-4.9 mg/dL Performed By: #### PINR, 149 79-9, CMP, 67527-7, 2777-1, 23338-3, HA1C #### [facility] ([id number]) [address] [place] [address], [address] [place] [address] BRN NATRIURETIC PEP Collected: 05/01/2024 5:46 AM Status: COMPLETED Source: [employer] REPOSITORY TYPE CODE TESTS RESULT OUT OF RANGE REFERENCE UNITS LAB BNP([facility]) BRN NATRIURETIC PEP 52 <100.0 pg/mL Performed By: #### PINR, 149 79-9, CMP, 97903-4, 2777-1, 19568-8, HA1C #### [facility] ([id number]) [address] [place] [address], [address] [address] HGB A1C (GLYCO-HGB) Collected: 05/01/2024 5:46 AM Status: COMPLETED Source: [employer] REPOSITORY TYPE CODE TESTS RESULT OUT OF RANGE REFERENCE UNITS LAB HBA1C(INC) HEMOGLOBIN A1C 6.9 High 4.4-5.6 % Result Comment: NOTE ADA Guidelines Result HgbA1c Normal : less than 5.7 % Prediabetes : 5.7 % to 6.4 % Diabetes : > 6.4 % Use with caution in patients with abnormal hemoglobin variants as the half-life of red blood cells and in vivo glycation rates are affected. LAB EAG(LOINC) AVERAGE GLUCOSE 151 mg/dL Performed By: #### PINR, 149 79-9, CMP, 61161-5, 2777-1, 22125-4, HA1C #### [facility] ([id number]) [address] [facility] [place] [address] 1 HOUR TROP I, HIGH SENSITIVITY Collected: 04/04 7:57 PM Status: COMPLETED Source: [facility]POS[facility] TYPE CODE TESTS RESULT OUT OF RANGE REFERENCE UNITS LAB TNIHS1(LOINC) 1 HOUR TROP I, HIGH SENSITIVITY 18 <21 ng/L Performed By: #### 58496-3 # ### [facility] ([id number]) [address] [facility], [place] [address] CT ABDOMEN AND PELVIS WO CONT Observed: 04/30/2024 7:46 PM Status: COMPLETED Source: [facility] REPOSITORY CT ABDOMEN AND PELVIS WO CON T CLINICAL INFORMATION: Abdominal pain, acute, nonlocalized. TECHNIQUE: CT Abdomen and Pelvis without intravenous contrast. All CT scans at this facility use dose modulation, iterative reconstruction, and/or weight based dosing when appropriate to reduce radiation dose to as low as reasonably achievable. COMPARISON: 02/05/2023 FINDINGS: Visualized lung bases are unremarkable. The gallbladder is mildly distended. There is dilatation of the pancreatic duct in the tail of the pancreas. Calcifications in the pancreatic body/tail with probable stone in the pancreatic duct measuring 1.7 cm. The spleen, adrenal glands are unremarkable. Bilateral renal lesions are incompletely characterized on this study. There is a stone in the left renal pelvis measuring 0.9 cm without significant left intrarenal collecting system dilatation. Severe diffuse atherosclerotic disease. Dense calcifications in the pancreatic head as well. No enlarged abdominal or pelvic lymph nodes. There is a peritoneal dialysis catheter in place. Several foci of free intraperitoneal air. Distal small bowel loops are decompressed. There are numerous dilated proximal/mid small bowel loops. The colon is not dilated. Precise location of transition point difficult to well visualize. There are calcifications scattered throughout the bowel. No intra-abdominal fluid collection/abscess. Visualized body wall structures are unremarkable. No acute osseous abnormalities or aggressive osseous lesions. IMPRESSION: * Numerous dilated proximal/mid small bowel loops with decompressed distal small bowel, findings which are suspicious for small bowel obstruction. A discrete transition point is not able to be well visualized. * Several foci of free intraperitoneal air. This may relate to recent manipulation of peritoneal dialysis catheter. Alternatively it is difficult to fully exclude a bowel perforation. Clinical correlation is needed. * Sequela of chronic pancreatitis. There is a large stone likely within the pancreatic duct of the distal pancreatic body. Underlying pancreatic mass unable to be fully excluded. When clinically appropriate consider MR imaging of the pancreas. * Stone in the left renal pelvis measuring approximately 0.9 cm, not currently resulting in significant obstruction. Finalized by Keo Mccarthy MD on 04/30/2024 8:22 PM FLUID CULTURE Observed: 04/30/2024 7:05 PM Status: COMPLETED Source: [employer] GRAM STAIN WHITE BLOOD CELLS PRESENT NO ORGANISMS SEEN ON CONCENTRATED SMEAR CULTURE RESULTS NO GROWTH 5 DAYS Performed By: #### 610-6 ### # [facility] ([id number]) [address] [place] [address], [address] [place] [address] AND DIFF Collected: 04/30/2024 7:[address] [facility]: C Source: [facility] TYPE CODE TESTS RESULT OUT OF RANGE REFERENCE UNITS LAB FSPC(LOINC) FLUID SPECIMEN TYPE FLUID Result Comment: PERITONEAL D IALYSIS Corrected on 05/01 AT 0059: Previously reported as PERITONEAL FLUID LAB BFWBC(LOINC) NUCLEATED CELL CT 188 /uL LAB BFRBC(LOINC) FLUID RBC CT 18 /uL LAB FCOLR(LOINC) FLUID COLOR YELLOW LAB BFAPPR(LOINC) FLUID CLARITY CLEAR LAB BFC(LOINC) BODY FLUID COMMENT Inte rpretation---- ---- Result Comment: Reference va lues for this fluid type are undefined, as fluid accumulation is considered abnormal. LAB BFPOLY(LOINC) FLUID NEUTROPHILS 15 % LAB BFLYM(LOINC) FLUID LYMPHOCYTE 9 % LAB BFMES(LOINC) FLUID MESOTHELIAL 24 % LAB PHAG(LOINC) MACROPHAGES 52 % Performed By: #### BFCT #### [facility] ([id number]) [address] [place] [address], [address] [place] [address] LACTATE W/REFLEX Collected: 04/30/2024 7:00 PM Status: COMPLETED Source: [employer] REPOSITORY TYPE CODE TESTS RESULT OUT OF RANGE REFERENCE UNITS LAB LACTS(LOINC) LACTATE W/REFLEX 0.9 0.4-2.0 mmol/L Result Comment: Result did not trigger repeat Lactate, re-order if needed. Performed By: #### 18058-3 # ### [facility] ([id number]) [address] [place] [address], [place] [address] BLOOD CULTURE Observed: 04/30/2024 6:59 PM Status: COMPLETED Source: [facility] REPOSITORY CULTURE RESULTS NO GROWTH 5 DAYS CBC AND AUTO DIFF Collected: 04/30/2024 6:50 PM Status: COMPLETED Source: [facility]POS[facility] TYPE CODE TESTS RESULT OUT OF RANGE REFERENCE UNITS LAB WBC(LOINC) WBC COUNT 4.8 4.0-11.0 X10E9/L LAB RBC(LOINC) RBC COUNT 3.17 Low 4.10-5.70 X10E12/L LAB HGB(LOINC) HEMOGLOBIN 10.2 Low 13.0-17.0 g/dL LAB HCT(LOINC) HEMATOCRIT 29.8 Low 39-49 % LAB MCV(LOINC) MCV 94 80-100 fL LAB MCH(LOINC) MCH 32.2 27-34 pg LAB MCHC(LOINC) MCHC 34.2 32-36 g/dL LAB RDW(LOINC) RDW 14.9 11.5-15.0 % LAB PLTC(LOINC) PLATELET COUNT 126 Low 150-450 X10E9 /L LAB MPV(LOINC) MPV 8.6 7-12 fL LAB NEUT(LOINC) % NEUTROPHILS 83.4 % LAB LYMP(LOINC) % LYMPHOCYTES 4.9 % LAB MONO(LOINC) % MONOCYTES 8.2 % LAB EOS(LOINC) % EOSINOPHILS 3.1 % LAB BASO(LOINC) % BASOPHILS 0.4 % LAB ANEUT(LOINC) ABSOLUTE NEUTROPHIL 4.0 1.5-6.6 X10E9/L LAB ALYMP(LOINC) ABSOLUTE LYMPHOCYTE 0.2 Low 1.0-3.5 X10E9/L LAB AMONO(LOINC) ABSOLUTE MONOCYTE 0.4 0-0.9 X10E9/L LAB AEOS(LOINC) ABSOLUTE EOSINOPHIL 0.1 0.0-0.4 X10E9/L LAB ABASO(LOINC) ABSOLUTE BASOPHIL 0.0 0.0-0.2 X10E9/L Performed By: #### ALEXANDRIA, ZAHRA , 3040-3, 89202-7, 43212-6 #### [facility] ([id number]) [address] [place] [id number] COMPREHENSIVE METABOLIC PANEL Collected: 2023 6:50 PM Status: COMPLETED Source: [facility] REPOSITORY TYPE CODE TESTS RESULT OUT OF RANGE REFERENCE UNITS LAB NA(LOINC) SODIUM 138 134-146 mmol/L LAB K(LOINC) POTASSIUM 2.9 Low 3.5-5.0 mmol/L LAB CL(LOINC) CHLORIDE 102 98-109 mmol/L LAB CO2(LOINC) CARBON DIOXIDE 25 22-32 mmol/L LAB AGAP(LOINC) ANION GAP 11 5-15 mmol/L LAB BUN(LOINC) BLOOD UREA NITROGEN 54 High 5-27 mg/dL LAB CRET(LOINC) CREATININE 4.69 High 0.70-1.20 mg/dL Result Comment: METHOD TRACE ABLE TO IDMS STANDARD LAB GLU(LOINC) GLUCOSE 134 High 65-99 mg/dL LAB CA(LOINC) CALCIUM 8.1 Low 8.5-10.5 mg/dL LAB TP(LOINC) TOTAL PROTEIN 5.3 Low 6.0-8.0 g/dL LAB ALB(LOINC) ALBUMIN 2.6 Low 3.2-5.3 g/dL LAB ALK(LOINC) ALKALINE PHOSPHATASE 94 39-130 U/L LAB AST(LOINC) AST 20 0-41 U/L LAB ALT1(LOINC) ALT 21 0-40 U/L LAB TBIL(LOINC) BILIRUBIN,TOTAL 0.2 Low 0.3-1.2 mg/d L LAB EGFR(LOINC) eGFR (CKD-EPI) NON-RACE DEPENDENT 13 Low >59 ml/min/1 .73sq.m Result Comment: Reported eGFR is based on the CKD-EPI 2020 equation that does not use a race coefficient. Performed By: #### ALEXANDRIA, ZAHRA , 3040-3, 17547-3, 53385-9 #### [facility] ([id number]) [address] [place] [id number] LIPASE Collected: 04/30/2024 6:50 PM S tatus: COMPLETED Source: [facility] REPOSITORY TYPE CODE TESTS RESULT OUT OF RANGE REFERENCE UNITS LAB LIPA(LOINC) LIPASE 21 17-40 U/L Performed By: #### ARNELA, CMP , 3040-3, 18248-9, 96106-9 #### [facility] ([id number]) [address] [place] [address] [id number] MAGNESIUM Collected: 04/30/2024 6:50 PM S tatus: COMPLETED Source: [facility] REPOSITORY TYPE CODE TESTS RESULT OUT OF RANGE REFERENCE UNITS LAB MG(LOINC) MAGNESIUM 1.6 Low 1.8-2.6 mg/dL Performed By: #### ALEXANDRIA, CMP , 3040-3, 70968-1, 24696-4 #### [facility] ([id number]) [address] [place] [address] 76159 TROPONIN I, HIGH SENSITIVITY Collected: 024 6:50 PM Status: COMPLETED Source: [facility] REPOSITORY TYPE CODE TESTS RESULT OUT OF RANGE REFERENCE UNITS LAB TNIHS(LOINC) TROPONIN I, HIGH SENSITIVITY 19 <21 ng/L Performed By: #### ALEXANDRIA, CMP , 3040-3, 69234-3, 91217-2 #### [facility] ([id number]) [address] [place] [address] 38542 BLOOD CULTURE Observed: 04/30/2024 6:50 PM Status: COMPLETED Source: [facility] REPOSITORY CULTURE RESULTS NO GROWTH 5 DAYS [facility] Collected: 11:25 PM Status: F Source: [facility] REPOSITORY Order Comment: O P SEND OUT CPT 890346 Mis Test Name: O P CPT 198804 TYPE CODE TESTS RESULT OUT OF RANGE REFERENCE UNITS LAB MISC LAB MISC LAB Result Comment: See report. Scanned copy available in EMR. PERFORMED BY: [facility] [place] [address] PATHOLOGIST TAXATION AGENT LAURA BAIRES M.D. Performed By: #### [facility], OBS-GUAIAC, ENT BACT PANEL #### [address] #### CALPROTECT #### [facility] , ERYTHROCYTE SEDIMENTATION RATE Collected: 04/25/2024 12:49 PM Status: F Source: [facility] REPOSITORY TYPE CODE TESTS RESULT OUT OF RANGE REFERENCE UNITS LAB ESR Erythrocyte Sedimentation Rate 57 High 0-19 Result Comment: PERFORMED BY : [place] [address] PATHOLOGIST TAXATION AGENT LAURA BAIRES M.D. Performed By: #### ESR, TSH3 , CRP #### [address] #### CELIAC #### [facility] , C-REACTIVE PROTEIN Collected: 12:49 PM Status: F Source: [facility] REPOSITORY TYPE CODE TESTS RESULT OUT OF RANGE REFERENCE UNITS LAB CRP C-Reactive Protein 4.9 High 0.0-0.5 mg/dL Performed By: #### ESR, TSH3 , CRP #### [address] #### CELIAC #### [facility] , THYROID STIMULATING HORMONE Collected: 04/25/2024 12:49 PM Status: F Source: [facility] REPOSITORY TYPE CODE TESTS RESULT OUT OF RANGE REFERENCE UNITS LAB TSH3 Thyroid Stimulating Hormone 1.87 Normal 0.45-5.33 u[iU]/mL Result Comment: PERFORMED BY : [place] [address] PATHOLOGIST TAXATION AGENT LAURA BAIRES M.D. Performed By: #### ESR, TSH3 , CRP #### [facility] [address] [place] [address] [place] #### CELIAC #### [facility] , CELIAC Collected: 04/25/2024 12:49 PM Status: F Source: [facility] REPOSITORY TYPE CODE TESTS RESULT OUT OF RANGE REFERENCE UNITS LAB DGA IGA Deamidated Gliadin Abs, IgA 2 0-19 Result Comment: Negative 0 - 19 Weak Positive 20 - 30 Moderate to Strong Positive >30 LAB DGA IGG Deamidated Gliadin Abs, IgG 2 0-19 Result Comment: Negative 0 - 19 Weak Positive 20 - 30 Moderate to Strong Positive >30 LAB TTG IGA T-Transglutamina s e (tTG) IgA <2 0-3 Result Comment: Negative 0 - 3 Weak Positive 4 - 10 Positive >10 Tissue Transglutaminase (tTG) has been identified as the endomysial antigen. Studies have demonstr- ated that endomysial IgA antibodies have over 99% specificity for gluten sensitive enteropathy. LAB TTG IGG T-Transglutamina s e (tTG) IgG <2 0-5 Result Comment: Negative 0 - 5 Weak Positive 6 - 9 Positive >9 LAB ENDOMYS IGA Endomysial Antibody IgA Negative Negative LAB CELIAC IGA Immunoglobulin A , Qn, Serum 78 61-437 mg/dL Result Comment: Performed at : [facility] [id number] Architectural Associate: Keagan Peña PhD, Phone: [phone] PERFORMED BY: [place] [address] PATHOLOGIST TAXATION AGENT LAURA BAIRES M.D. Performed By: #### ESR, TSH3 , CRP #### [address] #### CELIAC #### [facility] , COMPREHENSIVE METABOLIC PANEL Collected: 04/25/2024 1 2:48 PM Status: F Source: [facility] REPOSITORY TYPE CODE TESTS RESULT OUT OF RANGE REFERENCE UNITS LAB GLU Glucose 165 High 70-100 mg/dL Result Comment: Random Gluco se Reference Range is dependent on time and content of last meal. Glucose of more than 200 mg/dL in a nonstressed, ambulatory subject supports the diagnosis of Diabetes Mellitus. ADA recommended reference range LAB BUN Blood Urea Nitrogen 48 High 7-25 mg/d L LAB CREATT Creatinine 3.75 High 0.70-1.30 mg/dL LAB GFReNR Estimated GFR 16.473 LAB NA Sodium 140 Normal 136-145 mmol/L LAB K Potassium 4.2 Normal 3.5-5.1 mmol/L LAB CL Chloride 102 Normal 98-107 mmol/L LAB CO2 Carbon Dioxide 30.4 Normal 21.0-31.0 mmol/L LAB GAP Anion Gap 11.8 Normal 6.0-15.0 LAB CA Calcium 8.9 Normal 8.6-10.3 mg/dL LAB TP Total Protein 5.4 Low 6.4-8.9 g/dL LAB ALB Albumin Level 3.4 Low 3.5-5.7 g/dL LAB GLOB Globulin 2.0 g/dL LAB AGRATIO Albumin/Globulin Ratio 1.7 LAB BILIT Bilirubin,Total 0.3 Normal 0.3-1.0 mg/dL LAB AST Aspartate Amino Transferase 17 Normal 13-39 U/L LAB ALT Alanine Aminotransferase 19 Normal 7-52 U/L LAB ALP Alkaline Phosphatase 101 Normal 34-104 U/L Performed By: #### LIPID, CM P #### [address] LIPID PANEL Collected: 4 12:48 PM Status: F Source: [facility] REPOSITORY TYPE CODE TESTS RESULT OUT OF RANGE REFERENCE UNITS LAB CHOL Cholesterol 113 Low 140-200 mg/dL Result Comment: Chol less th an 200 mg/dl low risk Chol 201-239 mg/dl borderline risk Chol 240 mg/dl and greater high risk LAB HDL HDL Cholesterol 38 Normal 23-92 mg/dL Result Comment: HDL CHOL ATP -III CLASSIFICATION Cardiovascular Risk HDL > or equal to 60 mg/dL LOW HDL < 40 mg/dL HIGH LAB TRIG W REF Triglyceride w/Reflex 227 High 0-149 mg/dL Result Comment: TRIG ATP III CLASSIFICATION TRIG less than 150 mg/dL Normal TRIG 150-199 mg/dL Borderline high TRIG 200-500 mg/dL High TRIG greater than 500 mg/dL Very high Standard traceable to the Center for Disease Conrtrol and Prevention (CDC) test method. LAB LDLC LDL Cholesterol,Igor culated 30 Normal 0-100 mg/dL Result Comment: LDL ATP III CLASSIFICATION LDL less than 100 mg/dL Optimal LDL 100-129 mg/dL Near or above optimal LDL 130-159 mg/dL Borderline high LDL 160-189 mg/dL High LDL greater than 189 mg/dL Very high LAB VLDL VLDL CHOLESTEROL 45 mg/dL LAB CHLHDL Chol/HDL Ratio 3.0 <5.0 Result Comment: PERFORMED BY : [place] [id number] PATHOLOGIST TAXATION AGENT LAURA BAIRES M.D. Performed By: #### LIPID, CM P #### [address] STOOL OCCULT BL. SCR. (GUAIAC) Observed: 04/25/2024 3:00 AM Status: F Source: [facility] REPOSITORY Occult Blood Negative for Occult Blood by Guaiac Methodology Reference range = Negative PERFORMED BY: [place] [address] PATHOLOGIST TAXATION AGENT LAURA BAIRES M.D. Performed By: #### MISC LAB, OBS-GUAIAC, ENT BACT PANEL #### [address] #### CALPROTECT #### [facility] , STOOL BACTERIAL PANEL Collected: 04/25/2024 3:00 AM Status: F Source: [facility] REPOSITORY TYPE CODE TESTS RESULT OUT OF RANGE REFERENCE UNITS LAB ENTB SHIGELLA S Shigella Species Negative Negative Result Comment: Shigella sp. test includes Shigella species and Enteroinvasive E. coli (EIEC). LAB ENTB SHIGA TOX Shiga Toxin (E coli O157+oth) Negative Negative LAB ENTB CAMPYLOBAC Campylobacter Negative Negative Result Comment: Campylobacte r test includes C. jejuni and C. coli. LAB ENTB SALMON SPE Salmonella Species Negative Negative Result Comment: Testing perf ormed by RT-PCR PERFORMED BY: [place] [address] PATHOLOGIST TAXATION AGENT LAURA BAIRES M.D. Performed By: #### MISC LAB, OBS-GUAIAC, ENT BACT PANEL #### [address] #### CALPROTECT #### [facility] , CALPROTECTIN, FECAL Collected: 04/25/20 3:00 AM Status: F Source: [facility] REPOSITORY TYPE CODE TESTS RESULT OUT OF RANGE REFERENCE UNITS LAB CALPROTECT Calprotectin , Fecal 8 0-120 Result Comment: Concentratio n Interpretation Follow-Up < 5 - 50 ug/g Normal None >50 -120 ug/g Borderline Re-evaluate in 4-6 weeks >120 ug/g Abnormal Repeat as clinically indicated Performed at: - [facility] [id number] Architectural Associate: Ban Kuhn MD, Phone: [phone] PERFORMED BY: [place] [address] PATHOLOGIST TAXATION AGENT LAURA BAIRES M.D. Performed By: #### MISC LAB, OBS-GUAIAC, ENT BACT PANEL #### [place] [address] [place] #### CALPROTECT #### [facility] , BEDSIDE GLUCOSE LAB Collected: 03/10/2024 12:30 PM Status: COMPLETED Source: [facility] REPOSITORY TYPE CODE TESTS RESULT OUT OF RANGE REFERENCE UNITS LAB BEDG(LOINC) BEDSIDE GLUCOSE LAB 220 High 65-99 mg/dL BEDSIDE GLUCOSE LAB Collected: 03/10/2024 8:43 AM Status: COMPLETED Source: [facility] REPOSITORY TYPE CODE TESTS RESULT OUT OF RANGE REFERENCE UNITS LAB BEDG(LOINC) BEDSIDE GLUCOSE LAB 130 High 65-99 mg/dL CBC AND AUTO DIFF Collected: 03/10/2024 4:11 AM Status: COMPLETED Source: [facility] REPOSITORY TYPE CODE TESTS RESULT OUT OF RANGE REFERENCE UNITS LAB WBC(LOINC) WBC COUNT 5.6 4.0-11.0 X10E9/L LAB RBC(LOINC) RBC COUNT 4.01 Low 4.10-5.70 X10E12/L LAB HGB(LOINC) HEMOGLOBIN 12.6 Low 13.0-17.0 g/dL LAB HCT(LOINC) HEMATOCRIT 36.8 Low 39-49 % LAB MCV(LOINC) MCV 92 80-100 fL LAB MCH(LOINC) MCH 31.5 27-34 pg LAB MCHC(LOINC) MCHC 34.3 32-36 g/dL LAB RDW(LOINC) RDW 15.3 High 11.5-15.0 % LAB PLTC(LOINC) PLATELET COUNT 107 Low 150-450 X10E9 /L LAB MPV(LOINC) MPV 8.3 7-12 fL LAB NEUT(LOINC) % NEUTROPHILS 79.8 % LAB LYMP(LOINC) % LYMPHOCYTES 7.4 % LAB MONO(LOINC) % MONOCYTES 6.6 % LAB EOS(LOINC) % EOSINOPHILS 5.6 % LAB BASO(LOINC) % BASOPHILS 0.6 % LAB ANEUT(LOINC) ABSOLUTE NEUTROPHIL 4.5 1.5-6.6 X10E9/L LAB ALYMP(LOINC) ABSOLUTE LYMPHOCYTE 0.4 Low 1.0-3.5 X10E9/L LAB AMONO(LOINC) ABSOLUTE MONOCYTE 0.4 0-0.9 X10E9/L LAB AEOS(LOINC) ABSOLUTE EOSINOPHIL 0.3 0.0-0.4 X10E9/L LAB ABASO(LOINC) ABSOLUTE BASOPHIL 0.0 0.0-0.2 X10E9/L Performed By: #### CBCA, BMP #### [facility] ([id number]) [address] [facility], [address] [place] [address] BASIC METABOLIC PANL Collected: 03/10/2024 4:11 AM Status: COMPLETED Source: [facility] REPOSITORY TYPE CODE TESTS RESULT OUT OF RANGE REFERENCE UNITS LAB NA(LOINC) SODIUM 141 134-146 mmol/L LAB K(LOINC) POTASSIUM 3.9 3.5-5.0 mmol/L LAB CL(LOINC) CHLORIDE 105 98-109 mmol/L LAB CO2(LOINC) CARBON DIOXIDE 25 22-32 mmol/L LAB AGAP(LOINC) ANION GAP 11 5-15 mmol/L LAB BUN(LOINC) BLOOD UREA NITROGEN 44 High 5-27 mg/dL LAB CRET(LOINC) CREATININE 3.53 High 0.60-1.30 mg/dL Result Comment: METHOD TRACE ABLE TO IDMS STANDARD LAB GLU(LOINC) GLUCOSE 102 High 65-99 mg/dL LAB CA(LOINC) CALCIUM 9.1 8.5-10.5 mg/dL LAB EGFR(LOINC) eGFR (CKD-EPI) NON-RACE DEPENDENT 18 Low >59 ml/min/1. 73sq.m Result Comment: Reported eGFR is based on the CKD-EPI 2020 equation that does not use a race coefficient. Performed By: #### CBCA, BMP #### [facility] ([id number]) [address] [place] [address], [address] [place] [address] BEDSIDE GLUCOSE LAB Collected: 03/09/2024 5:13 PM Status: COMPLETED Source: [facility] REPOSITORY TYPE CODE TESTS RESULT OUT OF RANGE REFERENCE UNITS LAB BEDG(LOINC) BEDSIDE GLUCOSE LAB 132 High 65-99 mg/dL URINALYSIS Collected: 03/09/2024 3:45 PM S tatus: COMPLETED Source: [facility] REPOSITORY TYPE CODE TESTS RESULT OUT OF RANGE REFERENCE UNITS LAB COLP(LOINC) COLOR YELLOW YELLOW LAB TURB(LOINC) TURBIDITY CLEAR CLEAR LAB SPGR(LOINC) SPECIFIC GRAVITY 1.008 1.003-1.035 LAB NITR(LOINC) NITRITE Negative (qualifier value) NEG LAB PHUR(LOINC) PH,URINE 7.0 5.0-8.5 LAB LEST(LOINC) LEUKOCYTE ESTERASE Negative (qualifier value) NEG LAB PRU(LOINC) PROTEIN 30 Abnormal NEG mg/dL LAB GLUR(LOINC) GLUCOSE (URINE) 200 Abnormal NEG mg/ dL LAB KET(LOINC) KETONES (URINE) Negative (qualifier value) NEG mg/dL LAB UROB(LOINC) UROBILINOGEN <1.1 <1.1 eu/dL LAB BILEU(LOINC) BILIRUBIN (URINE) Negative (qualifier value) NEG LAB BLUR(LOINC) BLOOD/HGB Trace Abnormal NEG LAB MUCU(LOINC) MUCOUS PRESENT Abnormal NONE LAB RBCU(LOINC) R.B.CELLS <1 0-5 /hpf LAB WBCU(LOINC) W.B.CELLS <1 0-5 /hpf Performed By: #### UA #### [facility] ([id number]) [address] [place] [address], [address] [place] [address] DRUG SCREEN, URINE Collected: 03/09/2024 3:45 PM Sta tus: COMPLETED [facility] TYPE CODE TESTS RESULT OUT OF RANGE REFERENCE UNITS LAB AMPH(LOINC) AMPHETAMINE/METH A MP Negative (qualifier value) NEG Result Comment: AMPH/METH sc reening cut off = 1000 ng/mL LAB ACACIA(LOINC) BARBITURATES Negative (qualifier value) NEG Result Comment: Barbiturates screening cut off value = 200 ng/mL LAB BENZO(LOINC) BENZODIAZEPINES Negative (qualifier value) NEG Result Comment: Benzodiazepi chas screening cut off value = 200 ng/mL LAB THC(LOINC) CANNABINOIDS Negative (qualifier value) NEG Result Comment: Cannabinoids /THC screening cut off value = 50 ng/mL LAB COKE(LOINC) COCAINE METABOLITE Negative (qualifier value) NEG Result Comment: Cocaine scre ening cut off value = 300 ng/mL LAB OPIAT(LOINC) OPIATES Negative (qualifier value) NEG Result Comment: Opiates scre ening cut off value = 300 ng/mL NOTE: This test is used for the detection of codeine, hydrocodone (>1000 ng/mL), morphine and hydromorphone (>900 ng/mL) in urine. LAB PCP(LOINC) PHENCYCLIDINE Negative (qualifier value) NEG Result Comment: Phencyclidin e screening cut off value = 25 ng/mL LAB OXYX(LOINC) OXYCODONE Positive (qualifier value) Abnormal NEG Result Comment: Confirmation available upon request. Oxycodone screening cut off value = 300 ng/mL NOTE: This test is used for the detection of oxycodone and oxymorphone in urine. LAB METH(LOINC) METHADONE Negative (qualifier value) NEG Result Comment: Methadone sc reening cut off value = 300 ng/mL. LAB MDMA(LOINC) ECSTASY Negative (qualifier value) NEG Result Comment: Ecstasy scre ening cut off value = 500 ng/mL This report is intended for use in clinical monitoring or management of patients. Performed By: #### DSU #### [facility] ([id number]) [address] [place] [address], [address] [place] [address] BEDSIDE GLUCOSE LAB Collected: 03/09/2024 3:43 PM Status: COMPLETED Source: [facility] REPOSITORY TYPE CODE TESTS RESULT OUT OF RANGE REFERENCE UNITS LAB BEDG(LOINC) BEDSIDE GLUCOSE LAB 142 High 65-99 mg/dL BEDSIDE GLUCOSE LAB Collected: 03/09/2024 3:00 PM Status: COMPLETED Source: [facility] REPOSITORY TYPE CODE TESTS RESULT OUT OF RANGE REFERENCE UNITS LAB [facility] 142 High 65-99 mg/dL XR PELVIS 1 OR 2 VWS Observed: 12:54 PM Status: COMPLETED Source: [facility] XR PELVIS 1 OR 2 VWS HISTORY: Pain, fall COMPARISON: None FINDINGS: AP supine views of the pelvis were obtained. Pelvic ring is grossly intact. Mild bilateral hip osteoarthritis. No hip fracture or dislocation. Right common femoral artery stent. Bilateral common iliac artery stents. Extensive postoperative changes in both inguinal regions with numerous surgical clips. IMPRESSION: * No acute osseous abnormality. Finalized by Reynold Ponce MD on 03/09/2024 1:03 PM XR CHEST 1 VW Observed: 03/09/2024 12:54 PM Status: COMPLETED Source: [facility] XR CHEST 1 VW Chest radiograph dated: 03/09/2024. Reason for study: fall, trauma work up. Comparison studies: Chest x-ray from 02/05/2022. Technique: Supine chest 1 view AP. Findings: Unremarkable cardiomediastinal silhouette. There is no gloria pulmonary edema. No pneumothorax, significant pleural effusions or focal consolidation. No acute osseous abnormality. IMPRESSION: No acute cardiopulmonary process identified. Finalized by Arnel Hoang MD on 03/09/2024 1:[address] CERVICAL SPINE WO CONT Observed: 02/2024 12:42 PM Status: COMPLETED Source: [facility] CT CERVICAL SPINE WO CONT CLINICAL INFORMATION: Initial encounter for traumatic injury of the neck. Intraparenchymal hemorrhage on head CT. Neck trauma (Age >= 65y) TECHNIQUE: CT of the cervical spine without IV contrast. Sagittal, coronal, reformats were performed. Automated exposure control. All CT scans at this facility use dose modulation, iterative reconstruction, and/or weight based dosing when appropriate to reduce radiation dose to as low as reasonably achievable. COMPARISON: None. FINDINGS: There is preservation of the vertebral body heights. No fractures or dislocations are seen. The alignment of the cervical spine is normal. Multilevel degenerative changes. Remote fractures about the tips of the of the spinous processes of C6 and C7. The craniocervical junction and atlantoaxial alignments are within normal limits. The prevertebral soft tissues are within normal limits. The paraspinous soft tissues are within normal limits. The lung apices are unremarkable. IMPRESSION: * No CT evidence of acute cervical spine injury. Finalized by Alfonso Machado MD on 03/09/2024 1:[address] BRAIN WO CONT Observed: 03/09/2024 12:41 PM Status: COMPLETED Source: [facility] CT BRAIN WO CONT STUDY: CT HEAD WITHOUT CONTRAST CLINICAL HISTORY: Head trauma, minor (Age >= 65y) COMPARISON: [facility] March 09 6:52 AM with current examination 4:43 PM Procedure: Multi-detector CT performed through the brain without IV contrast. The lack of IV contrast limits evaluation for acute infarct, mass, infectious process,or demyelinating disease.Automated exposure control was utilized. Findings: Left frontal scalp hematoma, large focus of encephalomalacia left frontal parietal temporal regions with wire for high attenuation which appears to be calcification showing no convincing change. Diffuse brain atrophy unchanged. There is no new intracranial hemorrhage, extra-axial fluid collection, mass effect, or hydrocephalus. Coughlin-white matter differentiation is appropriate. Infarcts and masses may be occult on CT, but grossly no acute infarct identified There is no midline shift. IMPRESSION: * Left frontal scalp hematoma, large focus of encephalomalacia left frontal parietal temporal regions with wire for high attenuation which appears to be calcification showing no convincing change. Diffuse brain atrophy unchanged. All CT scans at this facility use dose modulation, iterative reconstruction, and/or weight based dosing when appropriate to reduce radiation dose to as low as reasonably achievable. Finalized by Castillo Castle MD on 03/09/2024 1:16 PM CBC AND AUTO DIFF Collected: 11:46 AM Status: COMPLETED Source: [facility] TYPE CODE TESTS RESULT OUT OF RANGE REFERENCE UNITS LAB WBC(LOINC) WBC COUNT 6.3 4.0-11.0 X10E9/L LAB RBC(LOINC) RBC COUNT 3.66 Low 4.10-5.70 X10E12/L LAB HGB(LOINC) HEMOGLOBIN 11.9 Low 13.0-17.0 g/dL LAB HCT(LOINC) HEMATOCRIT 33.7 Low 39-49 % LAB MCV(LOINC) MCV 92 80-100 fL LAB MCH(LOINC) MCH 32.4 27-34 pg LAB MCHC(LOINC) MCHC 35.2 32-36 g/dL LAB RDW(LOINC) RDW 15.3 High 11.5-15.0 % LAB PLTC(LOINC) PLATELET COUNT 197 150-450 X10E9 /L LAB MPV(LOINC) MPV 9.2 7-12 fL LAB NEUT(LOINC) % NEUTROPHILS 82.3 % LAB LYMP(LOINC) % LYMPHOCYTES 5.4 % LAB MONO(LOINC) % MONOCYTES 6.9 % LAB EOS(LOINC) % EOSINOPHILS 4.9 % LAB BASO(LOINC) % BASOPHILS 0.5 % LAB ANEUT(LOINC) ABSOLUTE NEUTROPHIL 5.2 1.5-6.6 X10E9/L LAB ALYMP(LOINC) ABSOLUTE LYMPHOCYTE 0.3 Low 1.0-3.5 X10E9/L LAB AMONO(LOINC) ABSOLUTE MONOCYTE 0.4 0-0.9 X10E9/L LAB AEOS(LOINC) ABSOLUTE EOSINOPHIL 0.3 0.0-0.4 X10E9/L LAB ABASO(LOINC) ABSOLUTE BASOPHIL 0.0 0.0-0.2 X10E9/L Performed By: #### CBCA, 486 64-7, PINR, [id number] #### [facility] ([id number]) [address] [place] [address], [place] [address] FIBRINOGEN Collected: 03/09/2024 11:46 AM Status: COMPLETED Source: [facility] REPOSITORY TYPE CODE TESTS RESULT OUT OF RANGE REFERENCE UNITS LAB FIBR(LOINC) FIBRINOGEN 697 High 190-480 mg/dL Performed By: #### CBCA, 486 64-7, PINR, [id number] #### [facility] ([id number]) [address] [place] [address], [address] [place] [address] PROTIME AND INR Collected: 11:46 AM Status: COMPLETED Source: [facility] REPOSITORY TYPE CODE TESTS RESULT OUT OF RANGE REFERENCE UNITS LAB PROX(LOINC) PROTIME 10.7 9.8-13.2 sec LAB INR(LOINC) INR 0.9 0.8-1.1 Performed By: #### CBCA, 486 64-7, PINR, 30903-4 #### [facility] ([id number]) [address] [place] [address], [place] [address] APTT Collected: 11:46 AM Status: COMPLETED Source: [facility] REPOSITORY TYPE CODE TESTS RESULT OUT OF RANGE REFERENCE UNITS LAB PTT(LOINC) APTT 35 26-37 sec Performed By: #### CBCA, 486 64-7, PINR, [id number] #### [facility] ([id number]) [address] [place] [address], [place] [address] AMYLASE Collected: 11:46 AM Status: COMPLETED Source: [facility] REPOSITORY TYPE CODE TESTS RESULT OUT OF RANGE REFERENCE UNITS LAB AMYL(LOINC) AMYLASE 26 Low 28-100 U/L Performed By: #### 1798-8, C MP, 3040-3, 5643-2 #### [facility] ([id number]) [address] [place] [address] COMPREHENSIVE METABOLIC PANEL Collected : 03/09/2024 11:46 AM Status: COMPLETED Source: [facility] REPOSITORY TYPE CODE TESTS RESULT OUT OF RANGE REFERENCE UNITS LAB NA(LOINC) SODIUM 141 134-146 mmol/L LAB K(LOINC) POTASSIUM 4.3 3.5-5.0 mmol/L LAB CL(LOINC) CHLORIDE 103 98-109 mmol/L LAB CO2(LOINC) CARBON DIOXIDE 28 22-32 mmol/L LAB AGAP(LOINC) ANION GAP 10 5-15 mmol/L LAB BUN(LOINC) BLOOD UREA NITROGEN 49 High 5-27 mg/dL LAB CRET(LOINC) CREATININE 3.75 High 0.60-1.30 mg/dL Result Comment: METHOD TRACE ABLE TO IDMS STANDARD LAB GLU(LOINC) GLUCOSE 142 High 65-99 mg/dL LAB CA(LOINC) CALCIUM 9.3 8.5-10.5 mg/dL LAB TP(LOINC) TOTAL PROTEIN 5.6 Low 6.0-8.0 g/dL LAB ALB(LOINC) ALBUMIN 3.5 3.2-5.3 g/dL LAB ALK(LOINC) ALKALINE PHOSPHATASE 84 39-130 U/L LAB AST(LOINC) AST 23 0-41 U/L LAB ALT1(LOINC) ALT 19 0-40 U/L LAB TBIL(INC) BILIRUBIN,TOTAL 0.3 0.3-1.2 mg/d L LAB EGFR(LOINC) eGFR (CKD-EPI) NON-RACE DEPENDENT 16 Low >59 ml/min/1 .73sq.m Result Comment: Reported eGFR is based on the CKD-EPI 2020 equation that does not use a race coefficient. Performed By: #### 1798-8, Noy UGARTE, 3040-3, 5643-2 #### [facility] ([id number]) [address] [facility], [address] [place] [address] LIPASE Collected: 4 11:46 AM Status: COMPLETED Source: [facility] TYPE CODE TESTS RESULT OUT OF RANGE REFERENCE UNITS LAB LIPA([facility]) LIPASE 20 11-82 U/L Performed By: #### 1798-8Noy MP, 3040-3, 5643-2 #### [facility] ([id number]) [address] [place] [address], [address] [place] [address] ETHANOL Collected: 4 11:46 AM Status: COMPLETED Source: [employer] REPOSITORY TYPE CODE TESTS RESULT OUT OF RANGE REFERENCE UNITS LAB ALCO([facility]) ETHANOL <0.01 0.00-0.08 g/dL Result Comment: This report is intended for use in clinical monitoring or management of patients. Performed By: #### 1798-8Noy MP, 3040-3, 5643-2 #### [facility] ([id number]) [address] [place] [address], [address] [place] [address] XR SPINE THORACIC 3 VWS Observed: 2023 1:15 PM Status: COMPLETED Source: [facility] XR SPINE THORACIC 3 VWS XR SPINE THORACIC 3 VWS Clinical history:Diabetic peripheral neuropathy ([facility]) Comparison: None. Findings: Advanced multilevel degenerative disc disease with disco loss and endplate degenerative changes. There is no vertebral body height loss. Chronic appearing inferior end plate compression deformity of what appears to be T9. Multiple upper abdominal calcifications likely related to chronic calcific pancreatitis are calcifications. Impression: Severe multilevel degenerative disease. No acute ossific abnormality. Finalized by Charlotte Martínez MD on 01/30/2024 4:36 PM BEDSIDE GLUCOSE LAB Collected: 01/01/2024 12:34 PM Status: COMPLETED Source: [facility] REPOSITORY TYPE CODE TESTS RESULT OUT OF RANGE REFERENCE UNITS LAB BEDG(LOINC) BEDSIDE GLUCOSE LAB 135 High 65-99 mg/dL ALLERGIES DATE TYPE / CODE NAME / CODE REACTION SEVERITY SOURCE 04/13/2024 Drug Allergy/9264943 02(SNOMED CT) penicillin G/[id number](RXNORM) Diarrhea Unknown [facility] 11/23/2017 Drug Class/[id number] (SNOMED CT) PENICILLINS Rash Low [facility] ENCOUNTERS ADMIT/DISCHARGE ACCOUNT NUMBER ADMITTING ENCOUNTER CLASS LOCATION SOURCE 10/25/2024/10/26/19 [id number] Ambulatory Building:[facility] 09/27/2024/09/27/19 [id number] Ambulatory Building:[facility] 09/27/2024/09/27/19 [id number] Ambulatory Building:[facility] 09/19/2024/09/19/19 [id number] [facility] 09/01/2024/09/01/19 [id number] Ambulatory Building:[facility] 08/25/2024/08/25/19 [id number] Ambulatory Building:[facility] 08/18/2024/08/18/19 [id number] Ambulatory Building:[facility] _XR [facility] 08/18/2024/08/18/19 [id number] [facility] 08/18/2024/08/18/19 [id number] Ambulatory Building:[facility] 08/16/2024/08/16/19 [id number] Ambulatory Building:[facility] 08/01/2024/12/30/20 24 [id number] Ambulatory Building:[facility] 07/12/2024/07/12/20 24 [id number] Ambulatory Building:[facility] 06/02/2024/06/02/20 24 [id number] Ambulatory Building:[facility] 05/03/2024/05/03/20 24 [id number] Ambulatory Building:[facility] _MOBICU [facility] 05/01/2024/05/04/20 24 [id number] BOBBY GARCIA Inpatient Encounter Building:PTH _R7WACUTERoo m: E866Lpd: [facility] 04/30/2024/04/30/20 24 [id number] Emergency Building:PFM _EDRoom: 6Bed: 06 [facility] 04/25/2024/04/25/20 24 [id number] [facility] 04/12/2024/04/12/20 24 [id number] Ambulatory Building:[facility] 04/12/2024/04/12/20 24 [id number] Ambulatory Building:[facility] 03/17/2024/03/17/20 24 [id number] Ambulatory Building:[facility] 03/09/2024 [id number] Ambulatory Building:[facility] 03/09/2024 [id number] Ambulatory Building:[facility] 03/09/2024/03/10/20 24 [id number] ROGER LEO Ambulatory Building:PTH _G2ACUTERoom : D066Nen: 01 [facility] 02/01/2024/02/01/20 24 [id number] Ambulatory Building:[facility] 01/27/2024/01/27/20 24 [id number] [facility] 01/27/2024/01/27/20 24 [id number] Ambulatory Building:PF _PAINMGMT [facility] 01/02/2024/01/02/20 24 [id number] Ambulatory Building:[facility] _PERIOPP [facility] 01/02/2024/01/02/20 24 [id number] Ambulatory Building:[facility] _PERIOPP [facility] 01/01/2024/01/01/20 24 [id number] JOSE RAMIREZ Ambulatory Building:[facility] _PERIOPP [facility] 01/01/2024/01/01/20 24 [id number] Ambulatory Building:PF _XR [facility] 12/09/2023/12/10/19 24 [id number] [facility] 12/08/2023/12/08/19 24 [id number] [facility] 11/05/2023/11/05/19 24 [id number] Ambulatory Building:[facility] EPIC FUNCTIONAL STATUS No Functional Status Records Found EQUIPMENT No Equipment Records Found PAYERS ENCOUNTER GUARANTOR PAYER SUBSCRIBER SOURCE 10/25/2024 CHARL[place]TE ROCHAB: [place] [address] [place] [address]Ays: (HP) Primary Insurance:HUMANA GOLD PLUS INTEGRATED-MEDICAREPol icy Number: [id number] Date:2024-03-03 CHARLOTTE MOLINA: [id number] [place] [address]Grl: (HP) [facility] 10/25/2024 Secondary Insura nce:[place] MEDICAIDPolicy Number: [id number] Date:2019-11-02 CHARLOTTE MOLINA: [id number] [place] [address] [place] [address]Xos: (HP) [facility] 09/27/2024 CHARLOTTE ROCHAB: [facility] [address] [address]Nib: (HP) Primary Insurance:[place]ID [place]: [id number] Date:2019-11-02 CHARLOTTE Burk BEVERLEYB: [id number] [facility] [address] [place] [address] [facility] 09/27/2024 Secondary Insurance:HUMAN MEDICARE ADVANTAGEPolicy Number: [id number] Date:2024-02-13 CHARLOTTE ROCHAB: [id number] [facility] [address] [facility] [address] [address] [facility] 09/27/2024 CHAR[place]TE ROCHAB: [facility] [address], [place] [address]Gdr: (HP) Primary Insurance:HU[place] - [place] RESIDENTPolicy Number: [id number] Date:2023-08-03 CHARLOTTE ROCHAB: [id number] [facility] [address], [place] [address]Vrr: (HP) [facility] 09/27/2024 Secondary Insura nce:[place] MEDICAIDPolicy Number: [id number] Date:2019-11-02 CHARLOTTE ROCHAB: [id number] [facility] [address], [place] [address]Fbw: (HP) [facility] 09/19/2024 [place]TE ROCHAB: [facility] [address], [place] [address]Qip: (HP) Primary Insurance:HU[place] - [place] RES[place]Policy Number: [id number] Date:2023-08-03 CHAR[place]TE ROCHAB: [id number] [facility] [address], [place] [address]Fpt: (HP) [facility] 09/19/2024 Secondary Insura nce:[place] MEDICAIDPolicy Number: [id number] Date:2019-11-02 CHAR[place] ROCHAB: [id number] [facility] [address] [address]Cmt: (HP) [facility] 09/01/2024 CHARL[place]TE ROCHAB: [address] [address]Fig: (HP) Primary Insurance:MEDICAID [place]Policy Number: [id number] Date:2019-11-02 [place]TE ROCHAB: [id number] [address] [facility] EPIC 09/01/2024 Secondary Insurance:HUMANA MEDICARE ADVANTAGEPolicy Number: [id number] Date:2024-02-13 CHARL[place]TE ROCHAB: [id number] [address] [address] [facility] EPIC 08/25/2024 [place] ROCHAB: [address] [address]Uba: (HP) Primary Insurance:[place] Number: [id number] Date:2019-11-02 CHARL[place]TE ROCHAB: [id number] [address] [address] [facility] EP[facility] 08/25/2024 Secondary Insurance:HUMANA MEDICARE ADVANTAGEPolicy Number: [id number] Date:2024-02-13 CHARL[place]TE ROCHAB: [id number] [address] [facility] EPIC 08/18/2024 [place]TE ROCHAB: [facility] [address] [facility] [address], [place] [address]Hrq: (HP) Primary Insurance:HUMANA MEDICARE [facility] RESIDENTPolicy Number: [id number] Date:2023-08-03 CHARL[place]TE ROCHAB: [id number] [facility] [address], [place] [address]Uxg: (HP) [facility] 08/18/2024 Secondary Insura nce:[place] MEDICAIDPolicy Number: [id number] Date:2019-11-02 [place] ROCHAB: [id number] [facility] [address], [place] [address]Wtj: (HP) [facility] 08/18/2024 [place] ROCHAB: [facility] [address], [place] [address]Qfc: (HP) Primary Insurance:HU[place] - [place] RESIDENTPolicy Number: [id number] Date:2023-08-03 [place] ROCHAB: [id number] [facility] [address], [place] [address]Bqq: (HP) [facility] 08/18/2024 Secondary Insura nce:[place] MEDICAIDPolicy Number: [id number] Date:2019-11-02 [place] ROCHAB: [id number] [facility] [address], [place] [address]Ldx: (HP) [facility] 08/18/2024 [place] ROCHAB: [facility] [address], [place] [address]Hkx: (HP) Primary Insurance:HU[place] - [place] RES[place]Policy Number: [id number] Date:2023-08-03 [place] ROCHAB: [id number] [facility] [address], [place] [address]Our: (HP) [facility] 08/18/2024 Secondary Insura nce:[place] MEDICAIDPolicy Number: [id number] Date:2019-11-02 CHARL[place]TE Bhargavi ROCHAB: [id number], [place] [address]Ucd: (HP) [facility] 08/16/2024 [place]LOTTE Bhargavi DONAHUEDOB: [address] [address], [place] [address]Bai: (HP) Primary Insurance:MEDICAID [place]Policy Number: [id number] Date:2019-11-02 CHARLOTTE Bhargavi ROCHAB: [id number] [facility] [address] [address] [address] [facility] EPIC 08/16/2024 Secondary Insurance:HUMAN MEDICARE ADVANTAGEPolicy Number: [id number] Date:2024-02-13 [place] ROCHAB: [id number] [facility] [address] [facility] [address] [address] [facility] EPIC 08/01/2024 [place] DONAHUEDOB: [facility] [address] [facility] [address] [address]Cby: (HP) Primary Insurance:MED[place]ID [place]Policy Number: [id number] Date:2019-11-02 [place] DONAHUEDOB: [id number] [facility] [address] [facility] [address] [address] [facility] EPIC 08/01/2024 Secondary Insurance:HUMANA MEDICARE ADVANTAGEPolicy Number: [id number] Date:2024-02-13 [place] DONAHUEDOB: [id number] [facility] [address] [address] [address] [facility] EPIC 07/12/2024 [place] ROCHAB: [facility] [address] [facility] [address] [address]Vpo: (HP) Primary Insurance:MEDICAID [place]Policy Number: [id number] Date:2019-11-02 [place] ROCHAB: [id number] [facility] [address] [facility] [address] [address] [facility] EPIC 07/12/2024 Secondary Insurance:HUMANA MEDICARE ADVANTAGEPolicy Number: [id number] Date:2024-02-13 CHAR[place]TE Bhargavi [place]: [id number] [facility] [address] [facility] [address] [address] [facility] EPIC 06/02/2024 CHARL[place]TE ROCHAB: [facility] [address] [facility] [address] [address]Ypc: (HP) Primary Insurance:MED[place]ID [place]Policy Number: [id number] Date:2019-11-02 CHARL[place] ROCHAB: [id number] [address] [address] [facility] EPIC 06/02/2024 Secondary Insurance:HUMAN MEDICARE ADVANTAGEPolicy Number: [id number] Date:2024-02-13 CHARL[place]TE ROCHAB: [id number] [address] [address] [facility] EPIC 05/03/2024 CHARL[place]TE ROCHAB: [facility] [address], [place] [address]Fqd: (HP) Primary Insurance:[place] RESIDENTPolicy Number: [id number] Date:2023-08-03 CHARLOTTE ROCHAB: [id number] [facility] [address], [place] [address]Jsi: (HP) [facility] 05/03/2024 Secondary Insura nce:[place] MEDICAIDPolicy Number: [id number] Date:2019-11-02 CHARL[place]TE ROCHAB: [id number] [facility] [address] [place] [address]Suj: (HP) [facility] 05/01/2024 CHARL[place]TE ROCHAB: [id number] [facility] [address], [place] [address]Uaa: (HP) Primary Insurance:HU[place] - [place] RES[place]Policy Number: [id number] Date:2023-08-03 CHARL[place]TE ROCHAB: [id number] [facility] [address] [facility] [place] [address]Txw: (HP) [facility] 05/01/2024 Secondary Insura nce:[place] MEDICAIDPolicy Number: [id number] Date:2019-11-02 CHARLOTTE ROCHAB: [id number] [facility] [address], [place] [address]Rap: (HP) [facility] 04/30/2024 CHAR[place]TE ROCHAB: [facility] [address], [place] [address]Svm: (HP) Primary Insurance:HU[place] - [place] RESIDENTPolicy Number: [id number] Date:2023-08-03 CHARLOTTE ROCHAB: [id number] [facility] [address], [place] [address]Ori: (HP) [facility] 04/30/2024 Secondary Insura nce:[place] MEDICAIDPolicy Number: [id number] Date:2019-11-02 CHARL[place]TE ROCHAB: [id number] [facility] [address], [place] [address]Edq: (HP) [facility] 04/25/2024 [place] Donahue740 [facility] [address] [address]Nxs: (HP) Primary Insurance:Human[facility] Plus HMOPolicy Number: [id number] Date:3800-30-30[address] [place] [address]RW: [place] RochaB: [id number] [facility] [address] [place] [address]Caq: (HP) [facility] 04/25/2024 Secondary Insurance:MedicaidPoli cy Number: [id number] Date:2024-04-25 [place] RochaB: [id number] [facility] [address] [place] [address]Vwj: (HP) [facility] 04/25/2024 Tertiary Insurance:Self PayPolicy Number: Effective Date:2024-04-25 [facility]24 [place] ROCHAB: [facility] [address] [address]Zkg: (HP) Primary Insurance:MED[place]ID [place]Policy Number: [id number] Date:2019-11-02 CHAR[place]TE ROCHAB: [id number] [facility] [address] [address] [facility] EPIC 04/12/2024 Secondary Insurance:HUMANA MEDICARE ADVANTAGEPolicy Number: [id number] Date:2024-02-13 [place] ROCHAB: [id number] [facility] [address] [address] [address] [facility] EPIC 04/12/2024 CHARLOTTE ROCHAB: [facility] [address] [place] [address]Gay: (HP) Primary Insurance:[place] MEDICAIDPolicy Number: [id number] Date:2019-11-02 [place] ROCHAB: [id number] [facility] [address] [place] [address]Dcf: (HP) [facility] 04/12/2024 Secondary Insurance:HUMA[place] - [place] RESIDENTPolicy Number: [id number] Date:2023-08-03 CHARLOTTE MOLINA: [id number] [facility] [address], [place] [address]Pvh: (HP) [facility] 03/17/2024 CHARL[place]TE Burk BEVERLEYB: [facility] [address] [address]Riq: (HP) Primary Insurance:AETNA MEDICARE ADVANTAGEPolicy Number: [id number] Date: - [place] Burk BEVERLEYB: [id number] [facility] [address] [address] [facility] 03/17/2024 Secondary Insurance:HUMANLayton Hospitalicy Number: [id number] Date:2024-03-03 [place]TE Burk BEVERLEYB: [id number] [facility] [address] [address] [address] [facility] 03/09/2024 [place]OTTE Burk BEVERLEYB: [facility] [address], [place] [address]Yrm: (HP) Primary Insurance:[place] MEDICAIDPolicy Number: [id number] Date:2019-11-02 [place] Burk BEVERLEYB: [id number] [facility] [address], [place] [address]Yzj: (HP) [facility] 03/09/2024 Secondary Insurance:[place] - [place] RESIDENTPolicy Number: [id number] Date:2023-08-03 - 2024-08-02 [place] Burk BEVERLEYB: [id number] [facility] [address], [place] [address]Nkb: (HP) [facility] 03/09/2024 Tertiary Insurance:HUMANA GOLD PLUS INTEGRATED-MEDICAREPol icy Number: [id number] Date:2024-03-03 CHARLOTTE Bhargavi ROCHAB: [id number] [facility] [address] [address]Npz: (HP) [facility] 03/09/2024 CHARL[place]TE ROCHAB: [facility] [address] [place] [address]Zvn: (HP) Primary Insurance:[place] MEDICAIDPolicy Number: [id number] Date:2019-11-02 [place] ROCHAB: [id number] [facility] [address] [place] [address]Fru: (HP) [facility] 03/09/2024 Secondary Insurance:[place] - [place] RESIDENTPolicy Number: [id number] Date:2023-08-03 - 2024-08-02 CHARLOTTE ROCHAB: [id number] [facility] [address] [place] [address]Osr: (HP) [facility] 03/09/2024 Tertiary Insurance:HUMANA GOLD PLUS INTEGRATED-MEDICAREPol icy Number: [id number] Date:2024-03-03 CHAR[place]OTTE ROCHAB: [id number] [facility] [address] [place] [address]Sam: (HP) [facility] 03/09/2024 CHARLOTTE ROCHAB: [facility] [address] [place] [address]Gql: (HP) Primary Insurance:[place] - [place] RES[place]Policy Number: [id number] Date:2023-08-03 CHARLOTTE ROCHAB: [id number] [facility] [address] [facility] [place] [place] [address]Wnk: (HP) [facility] 03/09/2024 Secondary Insura nce:[place] MEDICAIDPolicy Number: [id number] Date:2019-11-02 [place] ROCHAB: [id number] [place], [place] [address]Tlc: (HP) [facility] 02/01/2024 [place] ROCHAB: [address] [facility] [address]Ong: (HP) Primary Insurance:AETNA MEDICARE ADVANTAGEPolicy Number: [id number] Date:2024-02-01 [place] ROCHAB: [id number] [address] [address] [facility] 01/27/2024 CHARLOTTE MOLINA: [address], [place] [address]Mjm: (HP) Primary Insurance:HU[place] - [place] RESIDENTPolicy Number: [id number] Date:2023-08-03 [place] ROCHAB: [id number] [address], [place] [address]Ngh: (HP) [facility] 01/27/2024 [place] ROCHAB: [address], [place] [address]Goi: (HP) Primary Insurance:HU[place] - [place] RESIDENTPolicy Number: [id number] Date:2023-08-03 [place] ROCHAB: [id number] [facility] [address] [facility] [address], [place] [address]Nxc: (HP) [facility] 01/02/2024 [place]LOTTE ROCHAB: [address], [place] [address]Xcz: (HP) Primary Insurance:HU[place] - [place] RES[place]Policy Number: [id number] Date:2023-08-03 CHARLOTTE ROCHAB: [id number] [place] [address], [place] [address]Mbp: (HP) [facility] 01/02/2024 CHARLOTTE Bhargavi ROCHAB: [facility] [address], [place] [address]Ume: (HP) Primary Insurance:HU[place] - [place] RESIDENTPolicy Number: [id number] Date:2023-08-03 CHARLOTTE Bhargavi ROCHAB: [id number] [facility] [address], [place] [address]Xmb: (HP) [facility] 01/01/2024 CHARLOTTE Bhargavi ROCHAB: [facility] [address], [place] [address]Ukr: (HP) Primary Insurance:[place] - [place] RES[place]Policy Number: [id number] Date:2023-08-03 CHARLOTTE ROCHAB: [id number] [facility] [address], [place] [address]Fbu: (HP) [facility] 01/01/2024 CHARLOTTE ROCHAB: [facility] [address], [place] [address]Fwm: (HP) Primary Insurance:[place] RES[place]Policy Number: [id number] Date:2023-08-03 CHARLOTTE ROCHAB: [id number] [facility] [address], [place] [address]Yof: (HP) [facility] 12/09/2023 CHARLOTTE ROCHAB: [facility] [address], [place] [address]Uib: (HP) Primary Insurance:[place] RESIDENTPolicy Number: [id number] Date:2023-08-03 CHARLOTTE ROCHAB: [id number] [facility] [address], [place] [address]Ygt: (HP) [facility] 12/08/2023 CHARLOTTE Burk BEVERLEYB: [address] [address]Cfl: (HP) Primary Insurance:[facility] MEDICARE ADVANTAGEPolicy Number: [id number] Date:2023-08-03 CHARLOTTE ROCHAB: [id number] [place] [id number] [facility] EPIC 11/05/2023 CHARLOTTE Burk BEVERLEYB: [place] [id number]: (HP) [place] Insurance[place]: [id number] Date:2019-11-02 CHARLOTTE ROCHAB: [id number] [address] [address] [facility] EPIC 11/05/2023 Secondary Insurance:[facility] MEDICARE ADVANTAGEPolicy Number: [id number] Date:2023-08-03 CHARLOTTE ROCHAB: [id number] [address] [address] [facility] EPIC SOCIAL HISTORY No Social History Records Found FAMILY HISTORY No Family History Records Found No Status Records Found ADVANCE DIRECTIVES No Advanced Directives Records Found INFORMATION SOURCE DATE CREATED AUTHOR AUTHOR'S ARMANDO MCDANIEL 11/03/2024 KENDRICK
--- NOTE | 2024-11-03 06:18 | ECG_ITS ---
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 Measurements Intervals [place] Rate: 89 P: 64 CT: 214 QRS: 37 QRSD: 114 T: 72 QT: 358 QTc: 404 Interpretive Statements 1100 Sinus rhythm 2231 First degree AV block [address] depression, possible subendocardial injury 4564 Twave abnormality, possible lateral ischemia 9150 abnormal ECG Compared to ECG 10/31/2024 02:51:37 Left bundle-branch block now present Possible ischemia now present ST (T wave) deviation still present Electronically Signed On 11-04-2024 15:06:16 EDT by PERRI FERREIRA M.D.
--- NOTE | 2024-11-03 06:18 | PC.NURSE ---
the complains of back pain and bilateral shoulder pain after passing out then falling onto the kitchen floor. this patient is awake and alert, this patient does have a c-collar in place via ems. this patient voices no other complaints and shows no signs of distress
--- NOTE | 2024-11-03 06:19 | ED_ITS ---
HPI HPI - General Adult General Chief complaint: Fall Stated complaint: FALL Time Seen by Provider: 11/03/24 06:13 Source: patient Mode of arrival: ambulance Limitations: no limitations History of Present Illness HPI narrative: 74-year-old male presents to the emergency department after an apparent syncopal episode from a standing position. He was in his kitchen when this happened and he fell and he appears to have hit the back of his head. He is reasonably certain that he passed out. He does not complain of chest pain or palpitations. He had been admitted to this hospital a few days ago for chest pain. He is on peritoneal dialysis. Related Data Home Medications ?Medication ?Instructions ?Recorded ?Confirmed cilostazol 100 mg tablet 100 mg PO DAILY 08/10/23 03/09/24 cyanocobalamin (vitamin B-12) 2,000 mcg PO DAILY 08/10/23 10/31/24 2,000 mcg tablet,extended release (Vitamin B-12 ER) gabapentin 600 mg tablet 600 mg PO .COMPLEX 08/10/23 10/31/24 insulin aspart U-100 100 unit/mL 1 sliding scale dose subcut ACHS 08/10/23 10/31/24 (3 mL) subcutaneous pen (Novolog FlexPen U-100 Insulin aspart) insulin glargine 100 unit/mL (3 10 unit subcut BEDTIME 08/10/23 10/31/24 mL) subcutaneous pen (Lantus Solostar U-100 Insulin) lanthanum 500 mg chewable tablet 500 mg PO TIDWM 08/10/23 10/31/24 (Fosrenol) multivitamin 1 tab PO DAILY 08/10/23 10/31/24 oxycodone-acetaminophen 7.5 mg-325 1 tab PO Q12H PRN pain 08/10/23 10/31/24 mg tablet ropinirole 3 mg tablet 3 mg PO TID 08/10/23 10/31/24 sertraline 100 mg tablet 150 mg PO Q24H 08/10/23 10/31/24 tamsulosin 0.4 mg capsule 0.4 mg PO BID 08/10/23 10/31/24 clopidogrel 75 mg tablet 75 mg PO DAILY 03/09/24 10/31/24 tizanidine 4 mg tablet 4 mg PO Q8H PRN muscle spasticity 03/09/24 10/31/24 Anti-Diarrheal 1 tab PO TID 10/31/24 10/31/24 Probiotic 1 tab PO DAILY 10/31/24 10/31/24 aspirin 81 mg chewable tablet 1 tab PO DAILY 10/31/24 10/31/24 calcitriol 1 mcg/mL oral solution 2 mcg PO DAILY 10/31/24 cholecalciferol (vitamin D3) 1,250 1,250 mcg PO Q30D 10/31/24 10/31/24 mcg (50,000 unit) capsule cholecalciferol (vitamin D3) 125 125 mcg PO DAILY 10/31/24 10/31/24 mcg (5,000 unit) tablet dicyclomine 20 mg tablet 20 mg PO TID 10/31/24 10/31/24 evolocumab 140 mg/mL subcutaneous 140 mg subcut .14 days 10/31/24 10/31/24 syringe (Repatha Syringe) fiber vitamin daily 1 tab PO DAILY 10/31/24 10/31/24 furosemide 80 mg tablet (Lasix) 80 mg PO BID 10/31/24 10/31/24 hycosamine 1 tab PO TID 10/31/24 10/31/24 lanthanum 1,000 mg chewable tablet 1,000 mg PO TIDWM 10/31/24 10/31/24 lidocaine 5 % topical patch 1 patch topical Q24H 10/31/24 10/31/24 semaglutide 0.25 mg or 0.5 mg (2 0.5 mg subcut QWEEK 10/31/24 10/31/24 mg/3 mL) subcutaneous pen injector (Ozempic) Previous Rx's ?Medication ?Instructions ?Recorded isosorbide mononitrate 30 mg 30 mg PO QD #30 tabs 10/31/24 tablet,extended release 24 hr metoprolol tartrate 25 mg tablet 25 mg PO BID #60 tabs 10/31/24 Allergies Allergy/AdvReac Type Severity Reaction Status Date / Time Penicillins Allergy Severe Rash Verified 11/03/24 06:10 Opioid HPI Opioid Management Most Recent Opioid Data: Last Pain Scale 0 10/31/24 20:16 10/31/24 Last Pain Assessment 10/31/24 20:16 Last MAR Pain Assessment 10/31/24 06:27 Last ORT Total Score 3 10/31/24 08:19 10/31/24 Last ORT Risk Category Low Risk 10/31/24 08:19 10/31/24 Review of Systems ROS Narrative A ten point review of systems is negative except as noted above. [facility] Medical History (Updated 11/03/24 @ 06:49 by Tyler Farmer MD) DNR (do not resuscitate) ?Z66 - Do not resuscitate (ICD-10) Acute CVA (cerebrovascular accident) ?I63.9 - Cerebral infarction, unspecified (ICD-10) Orthostatic hypotension ?I95.1 - Orthostatic hypotension (ICD-10) Rhabdomyolysis ?M62.82 - Rhabdomyolysis (ICD-10) Skin cancer ?C44.90 - Unspecified malignant neoplasm of skin, unspecified (ICD-10) Emphysema/COPD ?J43.9 - Emphysema, unspecified (ICD-10) Hypertension ?I10 - Essential (primary) hypertension (ICD-10) Diabetes 1.5, 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 - Other specified diabetes mellitus without complications (ICD-10) T9 vertebral fracture ?S22.079A - Unspecified fracture of T9-T10 vertebra, initial encounter for closed fracture (ICD-10) Diarrhea ?R19.7 - Diarrhea, unspecified (ICD-10) Fall ?W19.XXXA - Unspecified fall, initial encounter (ICD-10) CVA (cerebral vascular accident) ?I63.9 - Cerebral infarction, unspecified (ICD-10) Peritoneal dialysis catheter in place ?Z99.2 - Dependence on renal dialysis (ICD-10) 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 ?N19 - Unspecified kidney failure (ICD-10) ?I99.9 - Unspecified disorder of circulatory system (ICD-10) Myocardial infarction ?I21.9 - Acute myocardial infarction, unspecified (ICD-10) Family History (Updated 10/31/24 @ 09:40 by Mary Maurice) Brother Family history of cancer Family history of myocardial infarction Family history of stroke Sister Family history of diabetes mellitus Social History (Updated 10/31/24 @ 09:41 by Mary Maurice) Within the past year, how often did you have a drink containing alcohol: monthly or less Within the past year, how many standard drinks containing alcohol did you have on a typical day: 1 or 2 Within the past year, how often did you have six or more drinks on one occasion: never Total score: 0 Score interpretation: A score less than 4 is consistent with normal alcohol consumption. 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 Known occupational exposures/hazards: No Highest level of school completed/degree received: high school graduate Do you want help with school or training: No Are you now , , , , never or living with a partner: In a typical week, how many times do you talk on the telephone with family, friends, or neighbors: twice per week How often do you get together with friends or relatives: never How often do you attend zoroastrianism or pentecostalism services: never Do you belong to any clubs or organizations such as zoroastrianism groups unions, [employer] or athletic groups, or school groups: no Total score: 0 Score interpretation: A score of less than or equal to 1 indicates the most socially isolated. Little interest or pleasure in doing things: not at all Feeling down, depressed, or hopeless: not at all Feel stressed/tense/nervous/anxious/difficulty sleeping: only a little Due to disability, difficulty making decisions: No Do you think of yourself as: straight/heterosexual Gender Identity: male Exam Narrative Exam Narrative: Nurses note and vital signs reviewed and patient is not hypoxic. General: The patient appears in no acute distress. His cervical collar is in place. Skin: Warm, dry, no pallor noted. There is no rash noted. Head: Normocephalic, back of head not initially able to be examined because of the c-collar Eye: Normal conjunctiva, no drainage Ears, Nose, Mouth, and Throat: oral mucosa is moist. Nares patent. Cardiovascular: Regular Rate and Rhythm Respiratory: Patient is in no distress, no accessory muscle use, lungs are clear to auscultation, no wheezing, rales or rhonchi. Chest wall not tender GI: Soft and nontender. Peritoneal dialysis catheter in place. Musculoskeletal: No palpable tenderness to all 4 extremities. All joints have full range of motion in his extremities. Neurological: A&O x4, normal speech; he is frequently moving his legs because he states he has peripheral neuropathy and it always hurts. Psychiatric: Cooperative Constitutional Vital Signs, click to edit/add: Last Vital Signs Temp 98.3 F 11/03/24 06:07 Pulse 82 11/03/24 06:07 Resp 20 11/03/24 06:07 BP 164/66 H 11/03/24 06:07 Pulse Ox 97 11/03/24 06:07 O2 Del Method Room Air 11/03/24 06:07 Course Vital Signs Vital signs: Vital Signs Temperature 98.3 F 11/03/24 06:07 Pulse Rate 82 11/03/24 06:07 Respiratory Rate 20 11/03/24 06:07 Blood Pressure 164/66 H 11/03/24 06:07 Pulse Oximetry 97 11/03/24 06:07 Oxygen Delivery Method Room Air 11/03/24 06:07 Temperature 98.3 F 11/03/24 06:07 Pulse Rate 82 11/03/24 06:07 Respiratory Rate 20 11/03/24 06:07 Blood Pressure 164/66 H 11/03/24 06:07 Pulse Oximetry 97 11/03/24 06:07 Oxygen Delivery Method Room Air 11/03/24 06:07 Medical Decision Making MDM Narrative Medical decision making narrative: Tests are ordered including CT brain and CT C-spine and the patient is signed out to Dr. Elena at change of shift. Differential Diagnosis Differential Diagnosis: Syncope, intracranial hemorrhage, C-spine fracture Lab Data Lab results reviewed: Yes I reviewed the patient's lab results Labs: Lab Results 11/03/24 Range/Units 06:14 WBC 6.9 (4.0-11.0) 10^3/uL RBC 3.34 L (4.70-6.10) 10^6/uL Hgb 10.9 L (14.0-18.0) g/dL Hct 33.2 L (42.0-54.0) % MCV 99.4 H (80.0-94.0) fL MCH 32.6 (25.9-34.0) pg MCHC 32.8 (29.9-35.2) g/dL RDW 13.8 (11.0-15.0) % Plt Count 111 L (150-450) 10^3/uL MPV 11.0 (9.5-13.5) fL Neut % (Auto) 82.6 H (43.0-75.0) % Lymph % (Auto) 5.8 L (20.5-60.0) % [place] % (Auto) 7.4 (1.7-12.0) % Eos % (Auto) 3.5 (0.9-7.0) % Baso % (Auto) 0.3 (0.2-2.0) % Neut # (Auto) 5.7 (1.4-6.5) 10^3/uL Lymph # (Auto) 0.4 L (1.2-3.8) 10^3/uL [place] # (Auto) 0.5 (0.3-0.8) 10^3/uL Eos # (Auto) 0.2 (0.0-0.7) 10^3/uL Baso # (Auto) 0.0 (0.0-0.1) 10^3/uL Abs Immat Gran (auto) 0.03 (0.00-0.03) 10^3/uL Imm/Tot Granulo (auto) 0.4 (0.0-0.5) % ECG Data Attestation: I personally reviewed and interpreted this ECG as follows: (EKG on my interpretation shows sinus rhythm with a first-degree block and ST segment depression laterally, more significant than EKG taken October 31 at 2:51 AM..) Discharge Plan Discharge Patient Disposition: Still a Patient
[2024-11-03 06:23] LABS: Basophils Percent Auto 0.3 % (0.2-2.0); Eosinophils Absolute Auto 0.2 10^3/uL (0.0-0.7); Eosinophils Percent Auto 3.5 % (0.9-7.0); Hematocrit 33.2 % (42.0-54.0); Hemoglobin 10.9 g/dL (14.0-18.0); Immature Granulocytes Abs Auto 0.03 10^3/uL (0.00-0.03); Immature Granulocytes Pct Auto 0.4 % (0.0-0.5); Lymphocytes Absolute Auto 0.4 10^3/uL (1.2-3.8); Lymphocytes Percent Auto 5.8 % (20.5-60.0); Mean Corpuscular HGB Conc 32.8 g/dL (29.9-35.2); Mean Corpuscular Hemoglobin 32.6 pg (25.9-34.0); Mean Corpuscular Volume 99.4 fL (80.0-94.0); Monocytes Absolute Auto 0.5 10^3/uL (0.3-0.8); Monocytes Percent Auto 7.4 % (1.7-12.0); Neutrophils Absolute Auto 5.7 10^3/uL (1.4-6.5); Neutrophils Percent Auto 82.6 % (43.0-75.0); Platelet Count 111 10^3/uL (150-450); Red Blood Count 3.34 10^6/uL (4.70-6.10); Red Cell Distribution Width 13.8 % (11.0-15.0); White Blood Count 6.9 10^3/uL (4.0-11.0)
[2024-11-03 06:44] LABS: Anion Gap 15.2; BUN Creatinine Ratio 14.7; Calcium 10.2 mg/dL (8.5-10.1); Carbon Dioxide 26.9 mmol/L (21.0-32.0); Chloride 106 mmol/L (98-107); Estimated GFR (African America 16 (>=60 mL/min/1.73m^2); Estimated GFR (Non-African Ame 13 (>=60 mL/min/1.73m^2); Glucose 208 mg/dL (74-106); Potassium 5.1 mmol/L (3.5-5.1); Sodium 143 mmol/L (136-145)
--- NOTE | 2024-11-03 06:50 | PC.NURSE ---
this patient is back from ct dept, awake and alert sitting upright on the bed, asked to take the c-collar off.
[2024-11-03 06:52] LABS: Troponin I High Sensitivity 1919.4 pg/mL (4.0-76.1)
[2024-11-03] MEDS: FUROSEMIDE 40 MG/4 ML VIAL 80 MG IVP (07:33)
[2024-11-03] MEDS: NITROGLYCERIN IN 5 % DEXTROSE 50 MG/250 ML INFUS..BTL IV (07:34)
--- NOTE | 2024-11-03 07:34 | PC.NURSE ---
0710 Call placed to [facility] to speak with Hospitalist per Dr. Elena. Dr. Elena has spoken to Human Services Worker at [facility] who accepted patient and requests transfer.
--- NOTE | 2024-11-03 07:38 | ECG_ITS ---
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 Measurements Intervals [place] Rate: 130 P: 90 [place]: 192 QRS: 52 QRSD: 126 T: 68 QT: 360 QTc: 437 Interpretive Statements Atrial flutter with variable AV conduction and aberrantly conducted complexes [address] depression, possible subendocardial injury 4564 Twave abnormality, possible lateral ischemia 9150 abnormal ECG Compared to ECG 11/03/2024 06:21:27 Atrial flutter now present Electronically Signed On 11-04-2024 15:23:07 EDT by PERRI FERREIRA M.D.
--- NOTE | 2024-11-03 07:42 | PC.NURSE ---
Call placed again to [facility] to inquire about talking with hospitalist.
--- NOTE | 2024-11-03 07:45 | PC.NURSE ---
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 Elena who would like to update
--- NOTE | 2024-11-03 07:52 | ECG_ITS ---
The [facility] Test Date: 2024-11-03 Pat Name: CHARLOTTE DONAHUE Department: Room: - Gender: Male Clinic Manager: : 1950 Requested By: [id number] Order Number: [id number] Reading MD: PERRI FERREIRA M.D. Measurements Intervals [place] Rate: 109 P: 98 [place]: 214 QRS: 51 QRSD: 128 T: -55 QT: 380 QTc: 444 Interpretive Statements 1120 Sinus tachycardia 1470 with occasional supraventricular premature complexes 1570 with occasional ventricular premature complexes 2231 First degree AV block [address] depression, possible subendocardial injury 9150 abnormal ECG Compared to ECG 11/03/2024 07:37:35 Sinus rhythm has replaced atrial flutter Ventricular premature complex(es) now present Electronically Signed On 11-04-2024 15:23:56 EDT by PERRI FERREIRA M.D.
--- NOTE | 2024-11-03 08:02 | PC.NURSE ---
Dr. Elena speaking with Dr. Mendiola Hospitalist at [facility] at this time.
[2024-11-03] MEDS: HEPARIN SODIUM,PORCINE/D5W 25,000 UNIT/500 ML IV.SOLN 19 UNIT IV (08:09)
[2024-11-03 08:10] LABS: INR 0.94
[2024-11-03] MEDS: HEPARIN SODIUM (PORCINE) 5,000 UNIT/ML VIAL 3100 UNIT IV (08:10)
[2024-11-03 08:12] LABS: Partial Thromboplastin Time 24.5 sec (22.3-36.2)
--- NOTE | 2024-11-03 08:14 | PC.NURSE ---
Accept[place] from [place] [facility] Await[place] acceptance.
[2024-11-03] MEDS: HYDROMORPHONE HCL 1 MG/ML CARTRIDGE IV (08:18)
[2024-11-03] MEDS: METOPROLOL TARTRATE 5 MG/5 ML VIAL IVP (08:18)
--- NOTE | 2024-11-03 08:32 | PC.NURSE ---
[place] [facility] [place]
--- NOTE | 2024-11-03 08:34 | PC.NURSE ---
[facility] called for transport, awaiting ETA.
[2024-11-03] MEDS: WATER IV (08:46)
[2024-11-03] MEDS: ESMOLOL HCL IV (08:46)
--- NOTE | 2024-11-03 08:51 | PC.NURSE ---
Call placed to [facility] to check availability, ETA of [id number].
== END 2024-11-03 10:18 | disposition short-term general hospital (02) ==
PROVIDERS: Emergency Medicine; Emergency Provider Emergency Medicine; PCP Family Medicine
DX: I21.4 Non-ST elevation (NSTEMI) myocardial infarction (principal); R55 Syncope and collapse; J81.1 Chronic pulmonary edema; Z99.2 Dependence on renal dialysis; Z79.02 Long term (current) use of antithrombotics/antiplatelets; Z79.82 Long term (current) use of aspirin; M25.512 Pain in left shoulder; I25.10 Atherosclerotic heart disease of native coronary artery without angina pectoris; Z66 Do not resuscitate; R09.02 Hypoxemia; F17.200 Nicotine dependence, unspecified, uncomplicated
CPT/HCPCS: 36415; 51702; 70450; 71045; 72040; 72125; 80048; 84484; 85025; 85610; 85730; 93005; 94799; 96374; 99285; J1171; J1644; J1806; J1938; J2305